=== PATIENT | male | born 1980 | race Caucasian/White ===

== ENCOUNTER 2018-07-24 01:42 | Inpatient (IN) ==
[2018-07-24] MEDS ORDERED: NS 1,000 ML IV ONE ×4 (01:51→05:27)
[2018-07-24 02:17] LABS: URINE SOURCE CATH
[2018-07-24 02:23] LABS: BILIRUBIN URINE NEGATIVE (NEGATIVE); BLOOD URINE NEGATIVE (NEGATIVE); COLOR STRAW; GLUCOSE URINE NEGATIVE (NEGATIVE); KETONE URINE NEGATIVE (NEGATIVE); LEUKOCYTES URINE NEGATIVE (NEGATIVE); NITRITE URINE NEGATIVE (NEGATIVE); PROTEIN URINE NEGATIVE (NEGATIVE); TURBIDITY URINE CLEAR (CLEAR); UROBILINOGEN URINE NORMAL (NORMAL)
[2018-07-24 02:24] LABS: UR EPITHELIAL CELLS <10 /HPF (<10); URINE BACTERIA NEGATIVE /HPF; URINE RBC <10 /HPF (<10); URINE WBC <10 /HPF (<10)
[2018-07-24 02:29] LABS: BASO# 0.02 X1000 (0.0-0.2); BASO% 0.3 % (0.0-0.8); EOS# 0.13 X1000 (0.0-0.7); EOS% 2.1 % (0.0-10.0); HEMATOCRIT 46.2 % (42.0-52.0); HEMOGLOBIN 15.2 g/dL (14.0-18.0); LYMPH# 3.65 X1000 (1.2-3.4); LYMPH% 59.3 % (20.5-51.1); MCH 29.7 PG (27-31); MCHC 32.9 g/dL (33-37); MCV 90.2 FL (81-99); MONO# 0.43 X1000 (0.11-0.59); MPV 11.9 FL (7.4-10.4); NEUT# 1.92 X1000 (1.4-6.5); NEUT% 31.3 % (42.2-75.2); PLT 201 X1000 (130-400); RBC 5.12 XMIL (4.7-6.1); WBC 6.15 X1000 (4.8-10.8)
[2018-07-24 02:36] LABS: UR AMPHETAMINES QUAL NONE DETECTED (NONE DETECT); UR BARBITUATES QUAL NONE DETECTED (NONE DETECT); UR BENZODIAZEPIN QUAL NONE DETECTED (NONE DETECT); UR CANNABINOIDS QUAL NONE DETECTED (NONE DETECT); UR COCAINE QUAL NONE DETECTED (NONE DETECT); UR METHADONE QUAL NONE DETECTED (NONE DETECT); UR OPIATES QUAL NONE DETECTED (NONE DETECT); UR OXYCODONE QUAL NONE DETECTED (NONE DETECT); UR PCP QUAL NONE DETECTED (NONE DETECT)
[2018-07-24 02:44] LABS: ACETAMINOPHEN < 1.2 ug/mL (10-30); AGAP 12; ALB/GLOB RATIO 1.6; ALBUMIN 4.5 g/dL (3.5-5.0); ALKALINE PHOSPHATASE 66 U/L (32-122); BUN 6 mg/dL (8-22); CALCIUM 9.1 mg/dL (8.8-10.2); CHLORIDE 98 mmol/L (98-107); COSMO 270; CREATININE 0.9 mg/dL (0.7-1.2); ESTIMATED GFR > 60; GLUCOSE 137 mg/dL (70-104); GOT 45 U/L (10-34); GPT 61 U/L (10-44); POTASSIUM 3.9 mmol/L (3.5-5.1); SALICYLATES < 3.00 mg/dL (3-10); SODIUM 135 mmol/L (136-145); TCO2 25 mmol/L (25-35); TOTAL BILIRUBIN 0.22 mg/dL (0.20-1.00); TOTAL PROTEIN 7.3 g/dL (6.3-8.3)
--- NOTE | 2018-07-24 03:41 | PROVIDER DOCUMENTATION ---
HPI-General Adult - General Chief Complaint: Suicide Attempt Stated Complaint: overdose Time Seen by Provider: 07/24/18 01:48 Source: family, EMS Allergies/Adverse Reactions: Patient Allergies Allergy/AdvReac Type Severity Reaction Status Date / Time No Known Allergies Allergy Verified 07/24/18 04:32 Home Medications: Home Medication List Medication Instructions Recorded Confirmed Last Taken Type Adalimumab [Humira] 40 mg SQ DIRECTED 11/19/17 07/24/18 07/23/18 History Clonazepam 0.5 mg PO DAILY PRN 07/24/18 07/24/18 07/23/18 History Clonazepam 0.5 mg PO QHS 07/24/18 07/24/18 07/23/18 History Mirtazapine 15 mg PO QHS 07/24/18 07/24/18 07/23/18 History Paroxetine HCl 20 mg PO QHS 07/24/18 07/24/18 07/23/18 History - History of Present Illness -Gen Adult Nature of Presenting Problems: Pt presents s/p suicide attempt, pt was drinking alcohol tonight, had 11 beers, family called EMS, pt found with 4 empty pill bottles, paxil 20mg qty 30, clonazepam 0.5mg qty13, clonazepam 0.5mg qty 20, and mirtazapine 15mg qty 30, unsure how many or if pt took pills, pt left a suicide note at home, pt is somnolent here, not answering any further questions at this time. Location of Pain/Injury: reports: none Pain Radiation: reports: no radiation Quality of Pain: reports: none Severity: reports: moderate Onset/Duration: reports: 1-3 hours ago Timing: reports: still present Context/Activities at Onset: reports: none Modifying Factors: improves with: nothing Associated Symptoms: reports: denies symptoms Similar Symptoms Previously?: No Recently seen or treated by another doctor?: No Review of Systems - Adult - REVIEW OF SYSTEMS - ADULT ROS:: unobtainable per condition Constitutional: reports: no symptoms reported Past History - Adult - PAST MEDICAL HISTORY-ADULT Review of Records: reports: Old Records Reviewed, Nursing Assessment Review, Medications Reviewed, Social history reviewed & non-contributory. Physical Exam-General - PHYSICAL EXAM-ADULT Initial Vital Signs Reviewed: Yes - CONSTITUTIONAL General Appearance: lethargic - EYES Eyes: PERRL/EOMI - HEAD, EARS, NOSE, MOUTH & THROAT HENMT: normocephalic/atraumatic - NECK Neck: full range of motion, supple, normal inspection - RESPIRATORY Respiratory: normal breath sounds - CARDIOVASCULAR Cardiovascular: regular rate, rhythm - GASTROINTESTINAL (ABDOMEN) Abdominal Exam: normal bowel sounds, soft, no organomegaly - LYMPHATIC Lymphatic: no adenopathy - MUSCULOSKELETAL Back Exam: normal inspection Extremity: normal inspection - SKIN Integumentary: normal color - NEUROLOGIC Neurologic: other (unable to assess neuro due to somnolence) - PSYCHIATRIC Psych/Mental Status: depressed affect Progress - PLAN OF CARE/RESULTS Progress/Plan/Lab Results: Vital Signs - 8 hr 07/24/18 02:04 07/24/18 02:43 07/24/18 02:44 Temperature 94.3 F L Pulse Rate 89 95 H 95 H Respiratory Rate 16 13 13 Blood Pressure 125/78 127/82 O2 Sat by Pulse Oximetry 90 L 95 96 07/24/18 02:47 07/24/18 02:50 07/24/18 03:00 Temperature Pulse Rate 95 H 95 H 96 H Respiratory Rate 14 14 15 Blood Pressure 117/78 O2 Sat by Pulse Oximetry 96 96 96 07/24/18 03:02 07/24/18 03:10 07/24/18 03:18 Temperature Pulse Rate 94 H 96 H 97 H Respiratory Rate 14 13 14 Blood Pressure 96/75 98/78 O2 Sat by Pulse Oximetry 94 L 94 L 94 L 07/24/18 03:20 Temperature Pulse Rate 95 H Respiratory Rate 13 Blood Pressure O2 Sat by Pulse Oximetry 94 L Laboratory Results - last 24 hr 07/24/18 07/24/18 07/24/18 02:01 02:01 02:01 WBC 6.15 RBC 5.12 Hgb 15.2 Hct 46.2 MCV 90.2 MCH 29.7 MCHC 32.9 L RDW Std Deviation 12.0 Plt Count 201 MPV 11.9 H Neut % (Auto) 31.3 L Lymph % (Auto) 59.3 H [place] % (Auto) 7.0 Eos % (Auto) 2.1 Baso % (Auto) 0.3 Neut # (Auto) 1.92 Lymph # (Auto) 3.65 H [place] # (Auto) 0.43 Eos # (Auto) 0.13 Baso # (Auto) 0.02 Sodium 135 L Potassium 3.9 Chloride 98 Carbon Dioxide 25 Anion Gap 12 BUN 6 L Creatinine 0.9 Estimated GFR/1.73 m2 > 60 BUN/Creatinine Ratio 7 Glucose 137 H Calculated Osmolality 270 Calcium 9.1 Total Bilirubin 0.22 AST 45 H ALT 61 H Alkaline Phosphatase 66 Total Protein 7.3 Albumin 4.5 Globulin 2.8 Albumin/Globulin Ratio 1.6 Urine Source CATH Urine Color STRAW Urine Turbidity CLEAR Urine pH 5.0 Ur Specific Banks 1.000 Urine Protein NEGATIVE Ur Glucose (Stick) NEGATIVE Ur Ketones (Stick) NEGATIVE Urine Blood NEGATIVE Urine Nitrite NEGATIVE Urine Bilirubin NEGATIVE Urobilinogen Dipstick NORMAL Urine Leukocytes NEGATIVE Urine WBC (Auto) <10 Urine RBC (Auto) <10 U Epithel Cells (Auto) <10 Urine Bacteria (Auto) NEGATIVE Salicylates < 3.00 L Urine Opiates Screen Ur Oxycodone Screen Ur Methadone, Qual Acetaminophen < 1.2 L Ur Barbiturates Screen Ur Phencyclidine Scrn Ur Amphetamines Screen U Benzodiazepines Scrn Urine Cocaine Screen U Cannabinoids Screen Plasma/Serum Ethyl Alc 07/24/18 07/24/18 02:01 02:01 WBC RBC Hgb Hct MCV MCH MCHC RDW Std Deviation Plt Count MPV Neut % (Auto) Lymph % (Auto) [place] % (Auto) Eos % (Auto) Baso % (Auto) Neut # (Auto) Lymph # (Auto) [place] # (Auto) Eos # (Auto) Baso # (Auto) Sodium Potassium Chloride Carbon Dioxide Anion Gap BUN Creatinine Estimated GFR/1.73 m2 BUN/Creatinine Ratio Glucose Calculated Osmolality Calcium Total Bilirubin AST ALT Alkaline Phosphatase Total Protein Albumin Globulin Albumin/Globulin Ratio Urine Source Urine Color Urine Turbidity Urine pH Ur Specific Banks Urine Protein Ur Glucose (Stick) Ur Ketones (Stick) Urine Blood Urine Nitrite Urine Bilirubin Urobilinogen Dipstick Urine Leukocytes Urine WBC (Auto) Urine RBC (Auto) U Epithel Cells (Auto) Urine Bacteria (Auto) Salicylates Urine Opiates Screen NONE DETECTED Ur Oxycodone Screen NONE DETECTED Ur Methadone, Qual NONE DETECTED Acetaminophen Ur Barbiturates Screen NONE DETECTED Ur Phencyclidine Scrn NONE DETECTED Ur Amphetamines Screen NONE DETECTED U Benzodiazepines Scrn NONE DETECTED Urine Cocaine Screen NONE DETECTED U Cannabinoids Screen NONE DETECTED Plasma/Serum Ethyl Alc 176 H Orders Category Date Time Status Page Cath Insertion ORDERED Care 07/24/18 01:47 Active Nursing- Obtain EKG once Care 07/24/18 01:44 Active ACETAMINOPHEN [TDM] Stat Lab 07/24/18 02:01 Completed ALCOHOL BLOOD Stat Lab 07/24/18 02:01 Completed CBC WITH ELECTRONIC DIFF [HEME] Stat Lab 07/24/18 02:01 Completed COMPREHENSIVE METABOLIC PANEL [CHEM] Stat Lab 07/24/18 02:01 Completed SALICYLATES [TDM] Stat Lab 07/24/18 02:01 Completed UA NIMS W/REFLEX CULT [URINALYSIS] Stat Lab 07/24/18 02:01 Completed URINE DRUG SCREEN Stat Lab 07/24/18 02:01 Completed 0.9% Sodium Chloride Inj [Ns] 1,000 ml Med 07/24/18 01:51 Discontinued IV 999 mls/hr EKG [EKG] Stat Ther 07/24/18 01:44 Ordered Result Diagrams: 07/24/18 02:01 07/24/18 02:01 - REASSESSMENT Reassessment #1 Time Reassessed: 08:58 Status: unchanged (Assumed care of patient at shift change from Dr. Ray. Patient has had little improvement in mental status and therefore cannot complete the mental health assessment at this time. Will admit to ICU for further monitoring with plan for [facility] chapely eval when mental status improves.) - CHANGE OF SHIFT REPORT (ED Provider) 1 Report Given and Care Transferred to:: Dr. Ocasio Time of Transfer: 07:00 Departure - Departure Date of Disposition Decision: 07/24/18 Time of Disposition Decision: 09:04 DIAGNOSIS: Suicidal overdose Qualifiers: Encounter type: initial encounter Qualified Code(s): T50.902A - Poisoning by unspecified drugs, medicaments and biological substances, intentional self-harm , initial encounter Disposition: ADMITTED INPATIENT 09 Certified Medical Emergency: Emergent Condition: Good Referrals and Follow-Ups: Yumiko Perez [Primary Care Provider] - - Critical Care Note This patient required my direct & personal management of CC.: Yes Attestation - Physician/ LUIS Attestation Patient care was provided by Advanced Practice Provider:: No The physician spent face to face time with patient:: Yes Advanced Practice Provider documentation review:: Supervising physician onsite and consulted in the evaluation and care of this patient. The physician did have a face to face encounter with the patient.
[2018-07-24] MEDS ORDERED: NS 1,000 ML ONE (03:45)
[2018-07-24] MEDS ORDERED: ZOFRAN IV ONE (09:29)
[2018-07-24] MEDS ORDERED: OFIRMEV 1000 MG/ISOTONIC SOLN 1,000 MG/100 ML BOTTLE IV ONE (09:39)
[2018-07-24] MEDS ORDERED: ZOFRAN IV PRN (09:56)
[2018-07-24] MEDS: NS 1,000 ML IV SCH ×3 (10:13→23:30)
[2018-07-24 10:24] LABS: AGAP 11; ALBUMIN 4.1 g/dL (3.5-5.0); ALKALINE PHOSPHATASE 59 U/L (32-122); BUN 5 mg/dL (8-22); CALCIUM 8.4 mg/dL (8.8-10.2); CHLORIDE 101 mmol/L (98-107); COSMO 273; CREATININE 0.8 mg/dL (0.7-1.2); ESTIMATED GFR > 60; GLUCOSE 101 mg/dL (70-104); GOT 33 U/L (10-34); GPT 49 U/L (10-44); MAGNESIUM 1.5 mg/dL (1.5-2.7); POTASSIUM 4.6 mmol/L (3.5-5.1); SODIUM 138 mmol/L (136-145); TCO2 26 mmol/L (25-35); TOTAL BILIRUBIN 0.18 mg/dL (0.20-1.00); TOTAL PROTEIN 6.1 g/dL (6.3-8.3)
[2018-07-24 10:43] LABS: ALLEN TEST YES; BE 2.2 mmoll (-3.0-3.0); BLOOD TYPE ARTERIAL; HCO3-(ACT) 26.6 mmoll (20.0-26.0); O2(CT) 19.6 mL/dL (15.0-23.0); O2HB 97.4 % (95.0-99.0); PO2(98.6) 87 mmHg (60-100); SAMPLE BLOOD; THB 14.3 g/dL (11.5-17.4); pH(98.6) 7.33 (7.35-7.45)
[2018-07-24 10:44] LABS: MODALITY NRB; PCO2(98.6) 56 mmHg (35-45)
[2018-07-24] MEDS ORDERED: MAGNESIUM SULFATE 2 GM/S.W.I. 2 GM/50 ML IVPB IV ONE (11:57)
--- NOTE | 2018-07-24 12:22 | Diag Imaging Result Doc PS360 ---
EXAM: CHEST-PORTABLE INDICATION: fever TECHNIQUE: One view COMPARISON: None. FINDINGS: Inspiration is suboptimal. The lungs are grossly clear. There is no discrete pleural fluid collection or pneumothorax. The cardiomediastinal silhouette and central vasculature are grossly unremarkable. IMPRESSION: No evidence of acute pathology by plain radiograph. Electronically signed by Josh Chen 07/24/2018 12:19 PM
--- NOTE | 2018-07-24 13:17 | ED EKG INTERP ---
This chart was entered by Isela Menendez Scribe, acting as scribe for Alix Ocasio MD. EKG Interpretation - EKG Time of EKG reading by physician:: 10:15 EKG Read and Signed by:: Alix Ocasio EKG Interpretation (*Must complete 3 of following elements*): Normal Rate: 82 Rhythm: NSR [place]: normal QRS: normal ST Wave: normal Attestation - Physician/ LUIS Attestation Patient care was provided by Advanced Practice Provider:: No The physician spent face to face time with patient:: Yes Advanced Practice Provider documentation review:: Supervising physician onsite and consulted in the evaluation and care of this patient. The physician did have a face to face encounter with the patient. This chart was documented by the indicated scribe, (Isela Menendez, Alysiaibe) and accurately reflects the services I performed and decisions made by ut, Alix Ocasio MD, as attested by the provider's signature.
--- NOTE | 2018-07-24 13:46 | HISTORY AND PHYSICAL ---
PRIMARY CARE PHYSICIAN: Dr. Yumiko Perez NEW PSYCHIATRIC PHYSICIAN: Dr. Ramsey through [facility] CHIEF COMPLAINT: Suicidal attempt. HISTORY OF PRESENT ILLNESS: Mr. Ky Chairez is a 38-year-old male with a medical history of psoriatic arthritis, hemochromatosis and recently has been getting treatment for anxiety and depression. Apparently his psoriatic arthritis has been so severe, he has been out of work for 2 years which has caused his mental state to start deteriorating into more of an anxiety and depression. He does have a history of alcohol abuse and has been drinking beer daily for 16 plus years. However, for the last 3 weeks, he was initiated in new medications, Paxil, mirtazapine and clonazepam by his physician through psychiatric outreach and was told not to drink. He has not had any alcohol over the last 3 weeks, and the at the bedside and the mother at the bedside both state that this is the best they have ever seen him mentally be. And for whatever reason last night, he decided he would start drinking alcohol again. Apparently he had up to 15 beers and wrote a suicide note, kissed his sometime close to midnight, told her he loved her, went to the kitchen, grabbed a cup of water, came back to the bedroom, and his heard him start rattling the bottles around his medications. She asked him what he was doing, and by the time she got up, he had already swallowed a whole bottle of clonazepam plus some from another bottle, a whole bottle of mirtazapine, a whole bottle of Paxil, about a half a bottle of melatonin. These doses are unsure of the actual doses, but the clonazepam and the mirtazapine were most recently filled on 07/18/2018. The dose on the clonazepam was 0.5 mg, so at least 6.5 mg or more of that. Then the dose of the mirtazapine was 15, and it had to be at least 450 mg or a little less. Paxil is unknown. She tried to get the bottle of melatonin from him while she was calling 911. He fell at least 3 times but never hit his head. Tried to lock himself in the bedroom when the police got there and was taken by ambulance here. He is very, very lethargic. Sternal rub or high amount of physical stimuli, he will open his eyes and wiggle his feet to command but otherwise significantly lethargic or obtunded. Pupils are equal and reactive. He moves all extremities equally and spontaneously but also to painful stimuli. Poison Control was contacted, and recommendations were followed. Those orders have been put in. The time of this occurrence the states was around midnight to 12:30 last night. So he will need to be admitted given the timeframe, watch for serotonin syndrome and prolonged QTC. Once he is cleared medically, we will need to get a transfer to [facility]. Apparently in the past he has tried to get in with [facility] but was unsuccessful. Over the last 2 years since he has been out of work, he has had suicidal thoughts on and off according to the , never an actual attempt. In the ICU. PAST MEDICAL HISTORY: 1. Psoriatic arthritis. 2. Hemochromatosis diagnosed 11/2017. 3. Anxiety and depression. 4. Hepatic steatosis. PAST SURGICAL HISTORY: None. SOCIAL HISTORY: No work for 2 years. Trying to get disability. to his of 16 years. Two children, ages 10 and 13. He uses smokeless tobacco and dips one can a day. He drinks beer daily, anywhere from 4 or more beers per day and has so since 16 plus years, although no alcohol for the last 3 weeks. He drank 15 beers last night. FAMILY HISTORY: Mother's side of the family wit basal cell carcinomas, [place] and hypertension. One sister had thyroid cancer. Another one also has mental health issues with depression and pills. Father with diabetes. ALLERGIES: No known drug allergies. HOME MEDICATIONS: 1. Clonazepam 0.5 mg p.o. nightly. 2. Mirtazapine 15 mg p.o. nightly. 3. Paroxetine 20 mg p.o. nightly. 4. Clonazepam 0.5 mg p.o. daily p.r.n. 5. Humira 40 mg subcutaneously every 2 weeks. REVIEW OF SYSTEMS: Unable to obtain. PHYSICAL EXAMINATION: VITAL SIGNS: Temperature is 99.9, heart rate 85, respiratory rate 29, blood pressure 114/70, O2 saturation is 99% on 100% nonrebreather. He is 5 feet 11 inches tall, 197 pounds on bed scale. GENERAL: Mr. Ky Chairez is a 38-year-old male. He is essentially obtunded in bed, very lethargic. Will respond to painful stimuli. HEENT: Atraumatic and normocephalic. Pupils are equal and reactive. He will go from a pinpoint all the way to about a 4 on his pupils. Mucous membranes are dry. NECK: Trachea midline. CARDIOVASCULAR: S1, S2. Regular rate and rhythm. No rubs or gallops. No lower extremity edema. Plus 2 dorsalis and radial pulses. Negative for JVD or carotid bruits. PULMONARY: Clear to auscultation with bilateral breath sounds. No accessory muscle use or work of breathing noted. GASTROINTESTINAL: Soft, nontender and nondistended. Positive bowel sounds x4. EXTREMITIES: He moves all extremities equally but not to command. He will spontaneously or to pain. NEUROLOGICAL: Verbally nonresponsive. Moans and groans with painful stimuli, but he did actually wiggle his feet to command after sternal rub but immediately goes back to sleep. SKIN: Warm, dry and intact. DIAGNOSTIC DATA: White blood cells 6000, hemoglobin 15, hematocrit 46, platelet count 201. ABGs on 100% nonrebreather showed pH of 7.33, pCO2 of 56, pO2 of 87, bicarb 26, base excess 2.2, lactate 1.9, saturation 99%. BMP shows sodium 138, potassium 4.6, BUN is 5, creatinine 0.8, glucose 101, calcium 8.4, magnesium 1.5. Bilirubin is 0.18, AST is 33, ALT is 49. CK is 95. Troponin less than 0.01. Albumin 4.1. Urinalysis negative. Urine drug screen with salicylates less than 3. Acetaminophen less than 1.2. Alcohol level 176. IMAGING: Chest x-ray performed, not read yet. EKG not uploaded into the computer. ASSESSMENT AND PLAN: 1. Suicide attempt with prescription overdose. These prescriptions include clonazepam 6.5 mg or more, mirtazapine around 450 mg , paroxetine he had filled on 06/30/2018 with a quantity of 30 and is unknown how many were in that bottle, and then about a half bottle of 2 mg melatonin and on top of that had 15 beers. Wrote a note to his family. All of this happened around midnight or 12:30 last night. He had 3 falls at home without hitting his head, according to the . The Poison Control Team was called, and recommendations are being followed. Given the timeframe of ingestion, no NG tube, just symptomatic treatment. Watch for serotonin syndrome. Watch for prolonged QTC. We will do serial EKGs q.4 hours along with electrolyte q.4 hours as well. We will repeat one more acetaminophen level today. He will most definitely need a [facility] consult once he is medically cleared. The also wants him to be evaluated for [facility] as well. 2. Alcohol abuse with alcohol intoxication, present on admit. Alcohol level was 176. Apparently he quit drinking for about 3 weeks, but he has had an alcoholic for 16 plus years, drinks beer daily, specifically [place]. The states that he was actually mentally improving, going to latter-day, just much more pleasant to be around, was able to have better conversations with him. And he has 2 young children, so hopefully we can get him help. 3. Anxiety and depression. He was most recently started on clonazepam, Paxil and mirtazapine and is followed by Dr. Ramsey located through the psychiatric outreach. 4. Respiratory failure secondary to being overly sedated with some CO2 retention. It is not severe. There is mild respiratory acidosis, pH of 7.33, pCO2 of 58 and only an 87% O2 saturation with a nonrebreather. We will put him on BiPAP. We will consult Pulmonary just in case he possibly may need intubation if he cannot stay awake, but currently he is maintaining his airway. There is no compromise at this time. We will add some nebulizers there. 5. Psoriatic arthritis. He takes every 2 weeks Humira 40 mg subcutaneously. 6. Hemochromatosis. He has only gone back in 11/2017 for treatment. No treatment since. 7. Hepatic steatosis. He has had a liver biopsy. I cannot pull up those results at this time. 8. DVT prophylaxis. 9. Tobacco abuse, but it is smokeless. Dictated by CHRISTIAN Fung for Kayode Chen MD cc: CHRISTIAN Fung MD David Anakwenze, MD Faye Wilson, MD
--- NOTE | 2018-07-24 15:30 | HISTORY AND PHYSICAL ---
This is a 38-year-old male who has presented to hospital because of attempted suicide. Patient had overdosed on medications include Klonopin, mirtazapine and also paroxetine. Also had alcohol in his system at time of presentation. Poison control has been contacted and will also get patient transferred over to [facility] when clinically stable. He is noted to have evidence of CO2 retention and as such is requiring BiPAP. He will need to be placed on DT prophylaxis in light of his history of alcoholism and along with thiamine, folic acid and also multivitamin. We check his mag and phos levels and replace those if needed. Patient will be managed in intensive care unit for now until he is clinically stable. cc: Kayode Chen MD
[2018-07-24] MEDS: FOLIC ACID 1 MG in NS 50 ML IV SCH (15:43)
[2018-07-24 15:46] LABS: ALLEN TEST YES; BLOOD TYPE ARTERIAL; HCO3-(ACT) 24.1 mmoll (20.0-26.0); METHB 0.8 % (0.0-1.5); O2(CT) 20.5 mL/dL (15.0-23.0); O2HB 97.3 % (95.0-99.0); PO2(98.6) 126 mmHg (60-100); SAMPLE BLOOD; THB 14.9 g/dL (11.5-17.4); pH(98.6) 7.31 (7.35-7.45)
[2018-07-24 15:48] LABS: MODALITY BI PAP; PCO2(98.6) 52 mmHg (35-45)
[2018-07-24] MEDS: DUONEB (A & A) INH SCH ×3 (15:57→23:33)
[2018-07-24 16:16] LABS: ACETAMINOPHEN 2.3 ug/mL (10-30); AGAP 8; ALB/GLOB RATIO 1.5; ALBUMIN 3.7 g/dL (3.5-5.0); ALKALINE PHOSPHATASE 63 U/L (32-122); BUN 4 mg/dL (8-22); CALCIUM 9.8 mg/dL (8.8-10.2); CHLORIDE 100 mmol/L (98-107); COSMO 265; CREATININE 0.9 mg/dL (0.7-1.2); ESTIMATED GFR > 60; GLUCOSE 93 mg/dL (70-104); GOT 26 U/L (10-34); GPT 46 U/L (10-44); MAGNESIUM 2.1 mg/dL (1.5-2.7); POTASSIUM 4.4 mmol/L (3.5-5.1); SODIUM 134 mmol/L (136-145); TCO2 26 mmol/L (25-35); TOTAL BILIRUBIN 0.31 mg/dL (0.20-1.00); TOTAL PROTEIN 6.1 g/dL (6.3-8.3)
[2018-07-24] MEDS: THIAMINE 100 MG in NS 50 ML IV SCH (16:48)
--- NOTE | 2018-07-24 20:10 | CONSULTATION ---
DATE OF CONSULTATION: 07/24/2018 CHIEF COMPLAINT: Suicidal attempt. HISTORY OF PRESENT ILLNESS: This is a 38-year-old male who presented to the hospital because of attempted suicide. Patient overdosed on Klonopin, mirtazapine and paroxetine; also had alcohol in his system. Chest x-ray is clear, CO2 retention noted, patient stable and resting well during assessment. PAST MEDICAL HISTORY: 1. Psoriatic arthritis. 2. Hemochromatosis diagnosed in November 2017. 3. Anxiety and depression. 4. Hepatic steatosis. PAST SURGICAL HISTORY: None. SOCIAL HISTORY: Unemployed for 2 years trying to get disability, , has 2 children, uses smokeless tobacco, he drinks beer daily for the past 16+ years. FAMILY HISTORY: Mother side the family with basal cell carcinoma, [place] and hypertension, 1 sister with thyroid cancer, another sister has mental health issues with depression. Father with diabetes. ALLERGIES: No known allergies. HOME MEDICATIONS: Please see home medication reconciliation list. REVIEW OF SYSTEMS: Unable to obtain due to patient condition. PHYSICAL EXAM: Vital Signs: 99.9, heart rate 85, respiratory rate 29, blood pressure 114/70, O2 saturation 99%. General: This is a 38-year-old male very lethargic resting well in no acute distress at present time. HEENT: Head is atraumatic, normocephalic. Pupils equal, round, and reactive to light and accommodation. Mucous membranes are dry. Neck : Midline supple. Cardiovascular: S1, S2 auscultated, regular rate and rhythm. Pulmonary: Clear to auscultation, nonlabored. GI: Soft, nontender, nondistended, positive bowel sounds in all 4 quadrants. Skin: Warm dry, and intact. Neuro: Lethargic moans and grunts to painful stimuli. LABORATORY DATA: red blood cells 5.12, pH 7.31, pCO2 52, PO2 126, oxyhemoglobin 97.3, HCO3 24.1, sodium 134, BUN 4, creatinine 0.9, potassium 4.4 , chloride 100, carbon dioxide 26, AST 26, ALT 46, total protein 6.1. DIAGNOSTIC DATA: Chest x-ray clear. ASSESSMENT AND PLAN: 1. Suicidal attempt with clonazepam, mirtazapine and paroxetine, will be transferred to [facility] once stable. 2. Respiratory failure secondary to being overly sedated, will continue BiPAP and monitor with ABGs. 3. Alcohol abuse. Hopefully can get him help through [facility]. 4. Psoriatic arthritis takes Humira 40mg sq every 2 weeks 5. Continue DVT prophylaxis. 6. Tobacco abuse. Thank you for the courtesy of the consult. Dictated by CHRISTIAN Ng for Mindi Nance MD cc: CHRISTIAN Ng MD [facility]
[2018-07-24 20:39] LABS: AGAP 13; ALB/GLOB RATIO 1.4; ALBUMIN 3.9 g/dL (3.5-5.0); ALKALINE PHOSPHATASE 68 U/L (32-122); BUN 5 mg/dL (8-22); CHLORIDE 108 mmol/L (98-107); COSMO 288; CREATININE 0.9 mg/dL (0.7-1.2); ESTIMATED GFR > 60; GLUCOSE 97 mg/dL (70-104); GOT 29 U/L (10-34); GPT 45 U/L (10-44); POTASSIUM 4.6 mmol/L (3.5-5.1); SODIUM 146 mmol/L (136-145); TCO2 25 mmol/L (25-35); TOTAL BILIRUBIN 0.39 mg/dL (0.20-1.00); TOTAL PROTEIN 6.7 g/dL (6.3-8.3)
[2018-07-25 01:11] LABS: AGAP 9; ALB/GLOB RATIO 1.5; ALBUMIN 3.7 g/dL (3.5-5.0); ALKALINE PHOSPHATASE 65 U/L (32-122); BUN 6 mg/dL (8-22); CALCIUM 9.5 mg/dL (8.8-10.2); CHLORIDE 108 mmol/L (98-107); COSMO 286; ESTIMATED GFR > 60; GLUCOSE 99 mg/dL (70-104); GOT 25 U/L (10-34); GPT 39 U/L (10-44); MAGNESIUM 1.8 mg/dL (1.5-2.7); POTASSIUM 4.3 mmol/L (3.5-5.1); SODIUM 145 mmol/L (136-145); TCO2 28 mmol/L (25-35); TOTAL BILIRUBIN 0.33 mg/dL (0.20-1.00); TOTAL PROTEIN 6.2 g/dL (6.3-8.3)
[2018-07-25] MEDS: DUONEB (A & A) INH SCH ×6 (03:44→23:04)
[2018-07-25] MEDS: NS 1,000 ML IV SCH ×5 (05:30→22:03)
[2018-07-25 06:15] LABS: PTT 28.9 Seconds (22.3-41.8)
[2018-07-25 06:20] LABS: BASO# 0.01 X1000 (0.0-0.2); BASO% 0.2 % (0.0-0.8); EOS# 0.05 X1000 (0.0-0.7); EOS% 0.9 % (0.0-10.0); HEMATOCRIT 43.6 % (42.0-52.0); HEMOGLOBIN 13.9 g/dL (14.0-18.0); LYMPH# 1.77 X1000 (1.2-3.4); LYMPH% 32.5 % (20.5-51.1); MCH 29.4 PG (27-31); MCHC 31.9 g/dL (33-37); MCV 92.2 FL (81-99); MONO# 0.58 X1000 (0.11-0.59); MONO% 10.6 % (1.7-9.3); MPV 11.8 FL (7.4-10.4); NEUT# 3.04 X1000 (1.4-6.5); NEUT% 55.8 % (42.2-75.2); PLT 139 X1000 (130-400); RBC 4.73 XMIL (4.7-6.1); RDW 11.7 % (11.5-14.5); WBC 5.45 X1000 (4.8-10.8)
[2018-07-25 07:03] LABS: AGAP 12; ALB/GLOB RATIO 1.7; ALBUMIN 3.5 g/dL (3.5-5.0); ALKALINE PHOSPHATASE 64 U/L (32-122); BUN 6 mg/dL (8-22); CALCIUM 8.8 mg/dL (8.8-10.2); CHLORIDE 106 mmol/L (98-107); COSMO 283; ESTIMATED GFR > 60; GLUCOSE 100 mg/dL (70-104); GOT 24 U/L (10-34); GPT 38 U/L (10-44); MAGNESIUM 1.7 mg/dL (1.5-2.7); POTASSIUM 4.4 mmol/L (3.5-5.1); SODIUM 143 mmol/L (136-145); TCO2 25 mmol/L (25-35); TOTAL BILIRUBIN 0.37 mg/dL (0.20-1.00); TOTAL PROTEIN 5.6 g/dL (6.3-8.3)
--- NOTE | 2018-07-25 07:19 | EKG Report ---
Test Performed on : 07/25/2018 06:47:49 AM Test Reason : overdose Blood Pressure : / mmHG Vent. Rate : 065 BPM Atrial Rate : 065 BPM P-R Int : 160 ms QRS Dur : 082 ms QT Int : 414 ms P-R-T Axes : 016 -11 009 degrees QTc Int : 430 ms Normal sinus rhythm. Normal ECG When compared with ECG of 25-JUL-2018 05:44, (Unconfirmed) No significant change was found Unconfirmed Result
--- NOTE | 2018-07-25 07:20 | EKG Report ---
Test Performed on : 07/24/2018 1:15:45 PM Test Reason : qtc prolongation monitoring Blood Pressure : / mmHG Vent. Rate : 080 BPM Atrial Rate : 080 BPM P-R Int : 172 ms QRS Dur : 084 ms QT Int : 370 ms P-R-T Axes : 042 004 041 degrees QTc Int : 426 ms Normal sinus rhythm. Normal ECG When compared with ECG of 24-JUL-2018 10:03, (Unconfirmed) No significant change was found Unconfirmed Result
--- NOTE | 2018-07-25 07:20 | EKG Report ---
Test Performed on : 07/24/2018 5:14:24 PM Test Reason : qtc prolongation monitoring Blood Pressure : / mmHG Vent. Rate : 076 BPM Atrial Rate : 076 BPM P-R Int : 156 ms QRS Dur : 084 ms QT Int : 380 ms P-R-T Axes : 050 006 031 degrees QTc Int : 427 ms Normal sinus rhythm. with sinus arrhythmia. Normal ECG When compared with ECG of 24-JUL-2018 13:15, (Unconfirmed) No significant change was found Unconfirmed Result
--- NOTE | 2018-07-25 07:30 | EKG Report ---
Test Performed on : 07/25/2018 05:44:16 AM Test Reason : qtc prolongation monitoring Blood Pressure : / mmHG Vent. Rate : 058 BPM Atrial Rate : 058 BPM P-R Int : 168 ms QRS Dur : 082 ms QT Int : 416 ms P-R-T Axes : 017 -16 003 degrees QTc Int : 408 ms Sinus bradycardia. Otherwise normal ECG When compared with ECG of 25-JUL-2018 01:18, (Unconfirmed) No significant change was found Unconfirmed Result
--- NOTE | 2018-07-25 07:46 | EKG Report ---
Test Performed on : 07/24/2018 10:03:48 AM Test Reason : repeat evaluation Blood Pressure : / mmHG Vent. Rate : 082 BPM Atrial Rate : 082 BPM P-R Int : 158 ms QRS Dur : 080 ms QT Int : 364 ms P-R-T Axes : 041 012 048 degrees QTc Int : 425 ms Normal sinus rhythm. Normal ECG When compared with ECG of 24-JUL-2018 01:55, (Unconfirmed) QT has shortened Unconfirmed Result
[2018-07-25 09:28] LABS: AGAP 8; ALB/GLOB RATIO 1.7; ALBUMIN 4.2 g/dL (3.5-5.0); ALKALINE PHOSPHATASE 72 U/L (32-122); BUN 7 mg/dL (8-22); CALCIUM 9.1 mg/dL (8.8-10.2); CHLORIDE 105 mmol/L (98-107); COSMO 283; CREATININE 1.1 mg/dL (0.7-1.2); ESTIMATED GFR > 60; GLUCOSE 101 mg/dL (70-104); GOT 27 U/L (10-34); GPT 40 U/L (10-44); MAGNESIUM 1.8 mg/dL (1.5-2.7); POTASSIUM 4.4 mmol/L (3.5-5.1); SODIUM 143 mmol/L (136-145); TCO2 30 mmol/L (25-35); TOTAL BILIRUBIN 0.41 mg/dL (0.20-1.00); TOTAL PROTEIN 6.7 g/dL (6.3-8.3)
--- NOTE | 2018-07-25 11:23 | EKG Report ---
Test Performed on : 07/24/2018 01:55:44 AM Test Reason : drug overdose Blood Pressure : / mmHG Vent. Rate : 087 BPM Atrial Rate : 087 BPM P-R Int : 158 ms QRS Dur : 094 ms QT Int : 402 ms P-R-T Axes : 038 002 038 degrees QTc Int : 483 ms Normal sinus rhythm. Possible Left atrial enlargement Prolonged QT Abnormal ECG No previous ECGs available Unconfirmed Result
--- NOTE | 2018-07-25 11:25 | EKG Report ---
Test Performed on : 07/24/2018 9:08:59 PM Test Reason : qtc prolongation monitoring Blood Pressure : / mmHG Vent. Rate : 070 BPM Atrial Rate : 070 BPM P-R Int : 172 ms QRS Dur : 092 ms QT Int : 412 ms P-R-T Axes : 038 -13 016 degrees QTc Int : 444 ms Normal sinus rhythm. Normal ECG When compared with ECG of 24-JUL-2018 17:14, (Unconfirmed) No significant change was found Unconfirmed Result
--- NOTE | 2018-07-25 11:26 | EKG Report ---
Test Performed on : 07/25/2018 01:18:48 AM Test Reason : qtc prolongation monitoring Blood Pressure : / mmHG Vent. Rate : 067 BPM Atrial Rate : 067 BPM P-R Int : 168 ms QRS Dur : 082 ms QT Int : 404 ms P-R-T Axes : 017 -11 -01 degrees QTc Int : 426 ms Normal sinus rhythm. Normal ECG When compared with ECG of 24-JUL-2018 21:08, (Unconfirmed) No significant change was found Unconfirmed Result
[2018-07-25] MEDS ORDERED: ATIVAN PO ONE (12:17)
--- NOTE | 2018-07-25 12:46 | EKG Report ---
Test Performed on : 07/25/2018 12:24:55 PM Test Reason : qtc prolongation monitoring Blood Pressure : / mmHG Vent. Rate : 058 BPM Atrial Rate : 058 BPM P-R Int : 168 ms QRS Dur : 084 ms QT Int : 410 ms P-R-T Axes : 018 -08 005 degrees QTc Int : 402 ms Sinus bradycardia. Otherwise normal ECG When compared with ECG of 25-JUL-2018 06:47, (Unconfirmed) No significant change was found Unconfirmed Result
[2018-07-25 13:48] LABS: AGAP 10; ALB/GLOB RATIO 1.9; ALKALINE PHOSPHATASE 66 U/L (32-122); BUN 6 mg/dL (8-22); CALCIUM 8.7 mg/dL (8.8-10.2); CHLORIDE 102 mmol/L (98-107); COSMO 279; ESTIMATED GFR > 60; GLUCOSE 103 mg/dL (70-104); GOT 23 U/L (10-34); GPT 39 U/L (10-44); MAGNESIUM 1.7 mg/dL (1.5-2.7); POTASSIUM 3.8 mmol/L (3.5-5.1); SODIUM 141 mmol/L (136-145); TCO2 29 mmol/L (25-35); TOTAL BILIRUBIN 0.39 mg/dL (0.20-1.00); TOTAL PROTEIN 6.1 g/dL (6.3-8.3)
--- NOTE | 2018-07-25 15:57 | PROGRESS NOTE ---
DATE: 07/25/2018 SUBJECTIVE: The patient is awake and seated on the chair not in any obvious distress. The patient is much better today in compared to yesterday where he was poorly responsive. OBJECTIVE: Vital signs: Temperature 97.4 degrees, pulse 67, respirations 14, blood pressure is 137/96, and oxygen saturation 94%. HEENT: Patient is atraumatic, normocephalic. Cardiovascular: S1, S2. Respiratory: He has evidence of good air entry bilaterally. Abdomen: Soft, nontender. No masses felt. Extremities: No evidence of edema. Central nervous system: No obvious focal deficits noted. LABORATORY: WBC is 5.45, hematocrit is 33.6, with a hemoglobin of 13.9. Sodium 141, potassium 3.8, chloride is 102, bicarb 29, BUN is 6, and creatinine is 1.0. Calcium 8.7. EKG shows sinus bradycardia. ASSESSMENT AND PLAN: 1. Medication overdose/major depression/suicide attempt. The patient is much better today and better oriented, and anxious to go home. The patient will need psychiatric evaluation for possible transfer to a psych unit for stabilization. 2. Alcoholism. Maintain patient on delirium tremens prophylaxis. Continue thiamine folic acid, and maintain patient on multivitamin. Check magnesium and phosphorus levels, and replace those as needed. 3. Anxiety disorder with depression. Defer management to psychiatric team. 4. Psoriatic arthritis. The patient takes Humira 40 mg subcutaneous every 2 weeks. 5. History of hemochromatosis. Aware. 6. History of hepatic steatosis. 7. Anemia. Check serum iron, TIBC, ferritin, B12, as well as folic acid level. Also stool for occult blood. 8. Deep vein thrombosis prophylaxis. SCD. cc: Kayode Chen MD
[2018-07-25 16:34] LABS: ALLEN TEST YES; BE 2.6 mmoll (-3.0-3.0); BLOOD TYPE ARTERIAL; HCO3-(ACT) 26.9 mmoll (20.0-26.0); O2(CT) 20.5 mL/dL (15.0-23.0); O2HB 95.7 % (95.0-99.0); PCO2(98.6) 41 mmHg (35-45); PO2(98.6) 87 mmHg (60-100); SAMPLE BLOOD; THB 15.2 g/dL (11.5-17.4); pH(98.6) 7.43 (7.35-7.45)
[2018-07-25 16:35] LABS: MODALITY ROOM AIR
[2018-07-25] MEDS: ELDERTONIC PO SCH (16:45)
[2018-07-25 16:48] LABS: IRON SATURATION 29 %; TIBC 302 ug/dL; TOTAL IRON 88 ug/dL (53-167); UNBOUND IRON 214 ug/dL (112-346)
[2018-07-25] MEDS: FOLIC ACID 1 MG in NS 50 ML IV SCH (16:49)
[2018-07-25] MEDS: THIAMINE 100 MG in NS 50 ML IV SCH (16:49)
[2018-07-25 17:26] LABS: FERRITIN 119 ng/mL (30-400)
[2018-07-25] MEDS ORDERED: MELATONIN PO ONE (20:33)
[2018-07-25] MEDS ORDERED: ATIVAN IV PRN (20:38)
[2018-07-26] MEDS: DUONEB (A & A) INH SCH ×7 (01:19→23:13)
[2018-07-26 04:48] LABS: ALLEN TEST YES; BE 2.2 mmoll (-3.0-3.0); BLOOD TYPE ARTERIAL; HCO3-(ACT) 26.7 mmoll (20.0-26.0); PCO2(98.6) 46 mmHg (35-45); PO2(98.6) 124 mmHg (60-100); SAMPLE BLOOD; pH(98.6) 7.39 (7.35-7.45)
[2018-07-26 04:49] LABS: MODALITY CANNULA
[2018-07-26] MEDS: NS 1,000 ML IV SCH (06:45)
--- NOTE | 2018-07-26 07:58 | PROGRESS NOTE ---
DATE: 07/26/2018 SUBJECTIVE: The patient is completely alert. He is oriented x3. He is answering all my questions. He is able to move all 4 extremities. No focal neurological deficits. I had a conversation with the patient about what happened. As per the patient, he has a history of arthritis I do believe due to psoriasis, and he has been asking for disability which has been denied. After that he became depressed, and he took some medications and alcohol at the same time to try to hurt himself. While I was talking to the patient, he seems to really be depressed, and he was crying during the whole conversation. He is clinically stable to be discharged, but I do believe he needs to be hospitalized in a psychiatric unit. We will contact [facility] today for evaluation. OBJECTIVE: Vital Signs: Temperature 97.9 degrees, pulse 88, respiratory rate 15, blood pressure 143/78, oxygen saturation 97% on room air. HEENT: Head normocephalic. No trauma. PERRLA. Neck: Supple. No JVD. No masses. Central trachea. Chest: Clear to auscultation. No wheezing. No rales. Abdomen: Soft, nontender, nondistended. No hepatosplenomegaly. Extremities: No edema. No clubbing. No cyanosis. Neurological examination: This patient is alert and oriented x3. No focal deficits. He seems to be really depressed. LABORATORY DATA: Lab work from yesterday stable. From yesterday, WBC 5.4, hemoglobin 13.9, hematocrit 43.6, platelets 139. Sodium 141, potassium 3.8, chloride 102, bicarbonate 29. BUN 6, creatinine 1, glucose 103, calcium 8.7. Protein 6.1, albumin 4, vitamin B 12 440, folate 7.4. ASSESSMENT AND PLAN: 1. Suicide attempt, medication overdose/major depressive state. The patient seems to be more stable today, medically stable. He is alert and oriented x3.. He looks depressed. He cried during the whole conversation with me. As per the patient, he has arthritis and he lost two jobs already because of that. He applied for disability and was denied. He felt depressed and he tried to hurt himself before coming to the hospital with pills and alcohol. 2. Alcoholism. Continue with the same management. The folic acid is low. Continue with thiamine and multivitamin. No signs of withdrawal or any kind of symptoms. I do not know how much he drinks, but as per the patient is not too much. No family members at the bedside at this moment. 3. Anxiety disorder with depression. He feels depressed at this moment and, like I mentioned before, he cried during the interview with me. 4. Psoriatic arthritis. It looks like the patient takes Humira 40 mg subcutaneously every 2 weeks. 5. History of hemochromatosis, aware. 6. History of hepatic steatosis. 7. Anemia. Hemoglobin looks fine. He does have folic acid deficiency. Blood cultures are negative. 8. Deep vein thrombosis prophylaxis with sequential compression devices. cc: Joseph Gutierrez MD
[2018-07-26] MEDS: ELDERTONIC PO SCH (09:50)
[2018-07-26] MEDS: FOLIC ACID 1 MG in NS 50 ML IV SCH (16:57)
[2018-07-26] MEDS: THIAMINE 100 MG in NS 50 ML IV SCH (16:58)
[2018-07-26] MEDS ORDERED: KLONOPIN PO SCH (21:00)
[2018-07-27] MEDS: DUONEB (A & A) INH SCH ×4 (03:18→14:52)
[2018-07-27 07:03] LABS: HEMATOCRIT 46.3 % (42.0-52.0); MCH 29.6 PG (27-31); MCHC 32.4 g/dL (33-37); MCV 91.3 FL (81-99); RBC 5.07 XMIL (4.7-6.1); RDW 11.9 % (11.5-14.5); WBC 5.21 X1000 (4.8-10.8)
[2018-07-27 07:33] LABS: AGAP 10; BUN 5 mg/dL (8-22); CALCIUM 9.3 mg/dL (8.8-10.2); CHLORIDE 104 mmol/L (98-107); COSMO 284; CREATININE 1.1 mg/dL (0.7-1.2); ESTIMATED GFR > 60; GLUCOSE 137 mg/dL (70-104); POTASSIUM 4.3 mmol/L (3.5-5.1); SODIUM 143 mmol/L (136-145); TCO2 29 mmol/L (25-35)
[2018-07-27] MEDS ORDERED: PATIENT'S OWN MED SUBQ ONE (09:00)
[2018-07-27] MEDS ORDERED: TYLENOL PO ONE (09:06)
--- NOTE | 2018-07-27 10:21 | PROGRESS NOTE ---
DATE: 07/27/2018 SUBJECTIVE: No acute events overnight. This patient is complaining of some mild pain mostly to palpation at the level of the left hip. He does have a history of psoriasis and arthritis. His is at the bedside. He had an evaluation by the psychiatry department, and the plan is to admit this patient in a psychiatric unit. OBJECTIVE: Vital Signs: Temperature 98.1 degrees, pulse 58, respiratory rate 16, blood pressure 135/83, and oxygen saturation 100% on room air. HEENT: Head normocephalic. No trauma. PERRLA. Neck: Supple. No JVD. No masses. Central trachea. Chest: Clear to auscultation. No wheezing. No rales. Abdomen: Soft, nontender, and nondistended. No hepatosplenomegaly. Extremities: No edema. No clubbing. No cyanosis. Neurological: The patient is alert and oriented x3. He seems to be better today. He does not look depressed today. at the bedside. LABORATORY: WBC 5.2, hemoglobin 15, hematocrit 46.3, and platelets 492,000. Sodium 143, potassium 4.3, chloride 104, bicarbonate 25, BUN 5, creatinine 1.1, glucose 137, and calcium 9.3. ASSESSMENT AND PLAN: 1. Suicide attempt. Medication overdose/major depressive state. The patient has been evaluated by Psychiatry Department yesterday. The plan is to transfer this patient to a psychiatry unit, pending placement. 2. Alcoholism. Continue with the same management. No signs of withdrawal. 3. Folic acid deficiency. Continue to replace. 4. Anxiety disorder with depression. He seems to be a little bit better today. The is at the bedside. All of the plan has been discussed. 5. Psoriatic arthritis. It looks like the patient takes Humira 40 mg subcutaneously every 2 weeks. Today, he is complaining of some left hip pain. He will get Tylenol for that. 6. History of hemochromatosis. Aware. 7. History of hepatic steatosis. Aware. 8. Anemia, hemoglobin has been stable. He does have folic acid deficiency. Blood culture negative. 9. Deep vein thrombosis prophylaxis with SCD's. cc: Joseph Gutierrez MD
[2018-07-27 11:57] VITALS: BP 131/86
[2018-07-27] MEDS: ELDERTONIC PO SCH (15:04)
--- NOTE | 2018-07-27 15:25 | DISCHARGE SUMMARY ---
ADMISSION DATE: 07/24/2018 DISCHARGE DATE: 07/27/2018 CONSULTATIONS: Dr. Nance of Pulmonology PERTINENT PROCEDURES: Initial chest x-ray with no evidence of acute disease. DISCHARGE DIAGNOSES: 1. Suicide attempt with medication overdose major depressive state. The patient has been evaluated by Psychiatry, and will be discharged to a psychiatry unit today at [facility]. Accepting physician is Dr. London Room #719. 2. Alcoholism. The patient has had no signs of withdrawal. 3. Folic acid deficiency. Continue with folic acid. 4. Anxiety disorder with depression. The patient has improved somewhat. Again, he will be discharged to a psychiatric unit at [facility]. 5. Psoriatic arthritis. He takes Humira 40 mg subcu every 2 weeks. 6. History of hemochromatosis. Aware 7. History of hepatic steatosis. Aware. 8. Anemia. Hemoglobin and hematocrit have been stable. HOSPITAL COURSE: Briefly, Mr. Chairez is a 38-year-old male with a past medical history of psoriatic arthritis, hemochromatosis, and recently was treated for anxiety and depression. His arthritis has been so severe. He had been out of work for nearly 2 years, and caused his mental state to start deteriorating into more of an anxiety and depression. He also has a history of alcohol abuse. He had been drinking beer daily for 16+ years. However, the last 3 weeks he was initiated on a new medication Paxil, Remeron and Klonopin by his physician through his psychiatric outreach and was told not to drink. He had not had any alcohol over the last 3 weeks, and his and mother both reported that it was the best that they had seen him mentally. For whatever reason, the night prior to admission he decided he would start drinking alcohol again. He had up to 15 beers and wrote a suicide note, kissed his sometime close to midnight, and told her that he loved her, went into the kitchen and grabbed a cup of water and came back to the bedroom. His heard him start rattling the bottles around his medication. By the time she got up, he had already swallowed a whole bottle of Klonopin plus some from another bottle, and then a whole bottle of Remeron at home. She called 911. He fell at least 3 times, tried to lock himself in the bedroom. When the police and ambulance got there, he was very very lethargic. He was only responsive to sternal rub or high amounts of physical stimulus. He would only open his eyes and wiggle his feet to command. He was admitted and watched for serotonin syndrome and prolonged QTc. When he became medically stable, he was evaluated by [facility]. They did feel he was appropriate for inpatient care. However, they did not have any beds. We sought other facilities in [place]. [facility] has assessed him, and feel that he is appropriate. He will be discharged there today. He had no signs of alcohol withdrawal throughout his admission. He is awake, alert, and oriented. VITAL SIGNS: At time of discharge, temperature is 97.6 degrees, heart rate 80, respirations 18, blood pressure 131/86, and O2 is 99% on room air. DISCHARGE DIET: Regular. DISCHARGE MEDICATIONS: 1. Klonopin 0.5 mg p.o. at bedtime. 2. Remeron 15 mg p.o. at bedtime. 3. Paxil 20 mg p.o. at bedtime. 4. Humira 40 mg subcutaneously as directed. 5. Klonopin 0.5 mg p.o. daily. FOLLOWUP: Mr. Chairez is being transferred to [facility] under the accepting physician, Dr. London. Dictated by CHRISTIAN Sanders for Joseph Gutierrez MD cc: MD Dr. Lita Coleman Dr.
== END 2018-07-27 19:10 | DRG 917 ==
LOC: SUPCPDRO → ED 01:42 → ICU 01:43 → SUATTDRO 01:43 → 3N 07-26 18:09
PROVIDERS: ATTEND Internal Medicine
CPT/HCPCS: 51702; 71010; 71045; 80048; 80053; 80101; 80196; 80301; 80307; 80320; 80324; 80329; 80345; 80346; 80353; 80358; 80361; 80365; 81001; 82003; 82055; 82550; 82607; 82728; 82746; 82805; 83540; 83550; 83605; 83735; 83992; 84100; 84484; 85025; 85027; 85610; 85730; 87040; 93005; 93010; 94640; 94660; 94761; 96361; 96365; 96375; 99285; A9270; G0431; G0434; G0479; G0480; G6038; G6039; G6040; J0131; J2060; J2405; J3411; J3475; J7030

== ENCOUNTER 2019-05-24 10:39 | Inpatient (IN) ==
[2019-05-24 11:07] LABS: BASO# 0.03 X1000 (0.0-0.2); BASO% 0.2 % (0.0-0.8); EOS# 0.03 X1000 (0.0-0.7); EOS% 0.2 % (0.0-10.0); HEMATOCRIT 54.5 % (42.0-52.0); HEMOGLOBIN 17.3 g/dL (14.0-18.0); LYMPH# 1.72 X1000 (1.2-3.4); LYMPH% 11.7 % (20.5-51.1); MCHC 31.7 g/dL (33-37); MONO# 0.43 X1000 (0.11-0.59); MONO% 2.9 % (1.7-9.3); MPV 11.1 FL (7.4-10.4); NEUT# 12.13 X1000 (1.4-6.5); PLT 220 X1000 (130-400); RBC 6.65 XMIL (4.7-6.1); RDW 12.7 % (11.5-14.5); WBC 14.64 X1000 (4.8-10.8)
[2019-05-24] MEDS ORDERED: NS 1,000 ML IV ONE ×2 (11:08→12:40)
[2019-05-24] MEDS ORDERED: ZOFRAN IV ONE (11:08)
[2019-05-24 11:28] LABS: ACETAMINOPHEN < 1.2 ug/mL (10-30); AGAP 19; ALBUMIN 5.2 g/dL (3.5-5.0); ALKALINE PHOSPHATASE 290 U/L (32-122); BUN 23 mg/dL (8-22); CHLORIDE 96 mmol/L (98-107); COSMO 285; ESTIMATED GFR 37; GLUCOSE 124 mg/dL (70-104); GOT 88 U/L (10-34); GPT 34 U/L (10-44); POTASSIUM 4.3 mmol/L (3.5-5.1); SALICYLATES < 3.00 mg/dL (3-10); SODIUM 140 mmol/L (136-145); TCO2 25 mmol/L (25-35); TOTAL PROTEIN 8.4 g/dL (6.3-8.3)
--- NOTE | 2019-05-24 12:00 | Diag Imaging Result Doc PS360 ---
EXAM: CHEST-2 VIEWS HISTORY: possible aspiration TECHNIQUE: Two views COMPARISON: 07/24/2018 FINDINGS: The lungs are well expanded. The heart is not enlarged. The vessels are not distended. There are no infiltrates. No pleural effusions. IMPRESSION: No pneumonia Electronically signed by Martin Miller 05/24/2019 11:58 AM
--- NOTE | 2019-05-24 12:06 | EKG Report ---
Test Performed on : 05/24/2019 11:15:37 AM Test Reason : overdose Blood Pressure : / mmHG Vent. Rate : 107 BPM Atrial Rate : 107 BPM P-R Int : 142 ms QRS Dur : 076 ms QT Int : 344 ms P-R-T Axes : 050 006 040 degrees QTc Int : 459 ms Sinus tachycardia. Possible Left atrial enlargement Borderline ECG When compared with ECG of 25-JUL-2018 12:24, Vent. rate has increased BY 49 BPM QT has lengthened Unconfirmed Result
[2019-05-24 13:03] LABS: UR AMPHETAMINES QUAL NONE DETECTED (NONE DETECT); UR BARBITUATES QUAL NONE DETECTED (NONE DETECT); UR BENZODIAZEPIN QUAL NONE DETECTED (NONE DETECT); UR CANNABINOIDS QUAL NONE DETECTED (NONE DETECT); UR COCAINE QUAL NONE DETECTED (NONE DETECT); UR METHADONE QUAL NONE DETECTED (NONE DETECT); UR METHAMPHETAMINE QUAL NONE DETECTED (NONE DETECT); UR OPIATES QUAL NONE DETECTED (NONE DETECT); UR OXYCODONE QUAL PRESUMPTIVE POSITIVE (NONE DETECT); UR PCP QUAL NONE DETECTED (NONE DETECT); UR PROPOXYPHENE QUAL NONE DETECTED (NONE DETECT); UR TCA QUAL NONE DETECTED (NONE DETECT)
--- NOTE | 2019-05-24 13:37 | PROVIDER DOCUMENTATION ---
This chart was entered by Rajwinder Chen Scribe, acting as scribe for Manny Prak MD. [id number] Abuse/Overdose - General Chief Complaint: Overdose Stated Complaint: OVER DOSE / WITHDRAWLS Time Seen by Provider: 05/24/19 10:49 Source: patient, family, old records Allergies/Adverse Reactions: Allergies Allergy/AdvReac Type Severity Reaction Status Date / Time No Known Allergies Allergy Verified 05/24/19 11:10 Home Medications: Home Medication List Medication Instructions Recorded Confirmed Last Taken Type Diclofenac Sodium 1 tab PO BID 05/24/19 05/24/19 Unknown History Hydroxyzine HCl 1 tab PO TID 05/24/19 05/24/19 Unknown History Oxycodone HCl 1 tab PO BID 05/24/19 05/24/19 Unknown History Pravastatin Sodium 1 tab PO HS 05/24/19 05/24/19 Unknown History Prazosin [Minipress] 3 mg PO HS 05/24/19 05/24/19 Unknown History Secukinumab [Cosentyx Pen] 150 mg SQ Q30D 05/24/19 05/24/19 Unknown History Venlafaxine HCl [Venlafaxine HCl 150 mg PO DAILY 05/24/19 05/24/19 Unknown History ER] - History of Present Illness-Drug/Alcohol Nature of Presenting Problem: pt is a 39 yowm presenting to er w/ w/cc sts pt OD last night on muscle relaxer, prednisone, oxycodone and ibuprofen, was taken to [facility], got 2 doses of narcan and dc'd home. sts pt was signing a form when she entered room and was dc'd. pt and confirm he did take rx on purpose and are unsure of how many of each rx was taken. pt has not eaten in 1.5wks, has been v/n and has epigastric abd pain. pt has hx of SI, anx/dep, scoratic arthritis abnd hemachromatosis. pt gets IM cocentyx. pt has not worked in 3 yrs, sts trying to get on disability. pt had prev SI attempt in July 2018. This episode of drinking or use began:: last night Severity: reports: moderate Psychiatric Complaints: reports: suicidal ideation Associated Symptoms: reports: nausea, vomiting, other (epigastric abd pain) Any injuries associated with this episode of intoxication?: No Similar Symptoms Previously?: Yes Recently seen or treated by another doctor?: Yes ([place] last night ) - Overdose Intentional drug overdose?: Yes Suicide Risk Assessment: male sex, prior attempt, organized plan, frightened friends-family Review of Systems - Adult - REVIEW OF SYSTEMS - ADULT Constitutional: reports: no symptoms reported. denies: chills, fever, fatique Eyes: reports: no symptoms reported Ears, Nose, Mouth & Throat: reports: no symptoms reported Cardiovascular: reports: no symptoms reported. denies: chest pain, palpitations Respiratory: reports: no symptoms reported. denies: pleurisy, shortness of b reath, wheezing Gastrointestinal: reports: see HPI, abdominal pain, nausea, poor appetite, vomiting. denies: diarrhea, difficulty swallowing, frequent heartburn Genitourinary: reports: no symptoms reported Musculoskeletal: reports: no symptoms reported Integumentary: reports: no symptoms reported Neurological: reports: no symptoms reported Psychiatric: reports: no symptoms reported Endocrine: reports: no symptoms reported Hematologic/Lymphatic: reports: no symptoms reported Allergic/Immunologic: reports: no symptoms reported All Other Systems: Reviewed and Negative Past History - Adult - PAST MEDICAL HISTORY-ADULT Review of Records: reports: Nursing Assessment Review, Medications Reviewed, Social history reviewed & non-contributory. Major Childhood Illnesses: reports: denies history Cardiovascular: reports: denies history Respiratory: reports: denies history Gastrointestinal: reports: denies history Obstetrical/Gynecological: reports: denies history Genitourinary: reports: denies history Musculoskeletal: reports: denies history Neurological: reports: denies history Psychiatric: reports: anxiety, depression, suicide attempt Endocrine/Immune: reports: denies history Other Conditions: reports: denies history - PRIOR SURGERIES/PROCEDURES Surgical/Procedure History: reports: other - IMMUNIZATION STATUS Childhood Immunizations: See Nurse Assessment Flu Vaccine: See Nurse Assessment - FAMILY HISTORY Family History: reviewed, not pertinent - SOCIAL HISTORY Smoking: cigarettes, greater than 1 pack/day Provider spent 3-5 mins advising pt. on dangers of tobacco.: Discussed manners to quit use, and f/u contacts for add'l counseling. Substance Use: none/never Physical Exam-General - PHYSICAL EXAM-ADULT Initial Vital Signs Reviewed: Yes - CONSTITUTIONAL General Appearance: alert, no apparent distress - EYES Eyes: PERRL/EOMI, pink conjunctivae - HEAD, EARS, NOSE, MOUTH & THROAT HENMT: normocephalic/atraumatic, moist mucous membranes, normal ENT inspection - NECK Neck: non-tender, full range of motion, supple, normal inspection - RESPIRATORY Respiratory: chest non-tender, lungs clear, normal breath sounds - CARDIOVASCULAR Cardiovascular: normal peripheral pulses, no edema, no gallop, no JVD, no murmur , tachycardia. negative: regular rate, rhythm, JVD, bradycardia - GASTROINTESTINAL (ABDOMEN) Abdominal Exam: normal bowel sounds, soft, no organomegaly, no pulsatile mass, tenderness (epigastric on palp). negative: non tender, guarding, rigid, rebound - MUSCULOSKELETAL Back Exam: normal inspection Extremity: normal range of motion, non-tender, normal inspection - SKIN Integumentary: normal color, normal turgor, warm/dry - NEUROLOGIC Neurologic: grossly normal, no motor/sensory deficits - PSYCHIATRIC Psych/Mental Status: normal thought content, normal thought process, oriented x 3, depressed affect. negative: normal mood/affect, anxious, paranoid, tearful Progress - PLAN OF CARE/RESULTS Progress/Plan/Lab Results: Vital Signs - 8 hr 05/24/19 10:43 05/24/19 13:38 Temperature 97.5 F L Pulse Rate 125 H 101 H Respiratory Rate 18 20 Blood Pressure 141/104 144/104 O2 Sat by Pulse Oximetry 97 99 Laboratory Results - last 24 hr 05/24/19 05/24/19 05/24/19 11:00 11:00 11:00 WBC 14.64 H RBC 6.65 H Hgb 17.3 Hct 54.5 H MCV 82.0 MCH 26.0 L MCHC 31.7 L RDW Std Deviation 12.7 Plt Count 220 MPV 11.1 H Immature Gran % (Auto) 2.0 H Neut % (Auto) 83.0 H Lymph % (Auto) 11.7 L [place] % (Auto) 2.9 Eos % (Auto) 0.2 Baso % (Auto) 0.2 Immature Gran # (Auto) 0.30 H Neut # (Auto) 12.13 H Lymph # (Auto) 1.72 [place] # (Auto) 0.43 Eos # (Auto) 0.03 Baso # (Auto) 0.03 Sodium 140 Potassium 4.3 Chloride 96 L Carbon Dioxide 25 Anion Gap 19 BUN 23 H Creatinine 2.0 H Estimated GFR/1.73 m2 37 BUN/Creatinine Ratio 12 Glucose 124 H POC Glucose Calculated Osmolality 285 Calcium 9.0 Total Bilirubin 0.30 AST 88 H ALT 34 Alkaline Phosphatase 290 H Total Protein 8.4 H Albumin 5.2 H Globulin 3.0 Albumin/Globulin Ratio 2.0 Salicylates < 3.00 L Urine Opiates Screen Ur Oxycodone Screen Urine Methadone Screen U Propoxyphene Qual Acetaminophen < 1.2 L Ur Barbituates Screen Ur Tricyclics Screen Ur Phencyclidine Scrn Ur Amphetamines Screen U Methamphetamines Scrn U Benzodiazepines Scrn Urine Cocaine Screen U Cannabinoids Screen Plasma/Serum Ethyl Alc 05/24/19 05/24/19 11:22 12:40 WBC RBC Hgb Hct MCV MCH MCHC RDW Std Deviation Plt Count MPV Immature Gran % (Auto) Neut % (Auto) Lymph % (Auto) [place] % (Auto) Eos % (Auto) Baso % (Auto) Immature Gran # (Auto) Neut # (Auto) Lymph # (Auto) [place] # (Auto) Eos # (Auto) Baso # (Auto) Sodium Potassium Chloride Carbon Dioxide Anion Gap BUN Creatinine Estimated GFR/1.73 m2 BUN/Creatinine Ratio Glucose POC Glucose 94 Calculated Osmolality Calcium Total Bilirubin AST ALT Alkaline Phosphatase Total Protein Albumin Globulin Albumin/Globulin Ratio Salicylates Urine Opiates Screen NONE DETECTED Ur Oxycodone Screen PRESUMPTIVE POSITIVE A Urine Methadone Screen NONE DETECTED U Propoxyphene Qual NONE DETECTED Acetaminophen Ur Barbituates Screen NONE DETECTED Ur Tricyclics Screen NONE DETECTED Ur Phencyclidine Scrn NONE DETECTED Ur Amphetamines Screen NONE DETECTED U Methamphetamines Scrn NONE DETECTED U Benzodiazepines Scrn NONE DETECTED Urine Cocaine Screen NONE DETECTED U Cannabinoids Screen NONE DETECTED Plasma/Serum Ethyl Alc Orders Category Date Time Status Admit - [facility] Routine AdmDCTranf 05/24/19 14:19 Active Cardiac Monitoring DIRECTED Care 05/24/19 10:49 Active Finger Stick Blood Sugar (ED) DIRECTED Care 05/24/19 10:49 Active Oxygen Therapy- ED Nursing DIRECTED Care 05/24/19 11:17 Active Saline Loc NOW Care 05/24/19 11:00 Active CHEST-2 VIEWS [RAD] Stat Exams 05/24/19 11:39 Completed ACETAMINOPHEN [TDM] Stat Lab 05/24/19 11:00 Completed ALCOHOL BLOOD Stat Lab 05/24/19 11:00 Completed CBC WITH ELECTRONIC DIFF [HEME] Stat Lab 05/24/19 11:00 Completed COMPREHENSIVE METABOLIC PANEL [CHEM] Stat Lab 05/24/19 11:00 Completed SALICYLATES [TDM] Stat Lab 05/24/19 11:00 Completed [address]INE DRUG SCREEN [address] Stat Lab 05/24/19 12:40 Completed 0.9% Sodium Chloride Inj [Ns] 1,000 ml Med 05/24/19 11:08 Discontinued IV 999 mls/hr 0.9% Sodium Chloride Inj [Ns] 1,000 ml Med 05/24/19 12:40 Discontinued IV 999 mls/hr Ondansetron [Zofran] Med 05/24/19 11:08 Discontinued 4 mg IV NOW ONE Overdose (suspected) Stat Oth 05/24/19 10:48 Ordered EKG [EKG] Stat Ther 05/24/19 10:49 Draft Result Diagrams: 05/24/19 11:00 05/24/19 11:00 - EKG 1 Time of EKG reading by physician:: 11:15 EKG Read and Signed by:: Manny Park EKG Interpretation (*Must complete 3 of following elements*): Normal (borderline) Rate: 107 Rhythm: [facility] [place]: normal QRS: normal MT Interval: normal ST Wave: normal Comments: possible left atrial enlargement - CONSULTS/PCP/HOSPITALIST Notification #1 *Consult/PCP/Hospitalist*: d/w Dr Quinteros Time Discussed: 13:34 Consult Disposition: Admit Departure - Departure Date of Disposition Decision: 05/24/19 Time of Disposition Decision: 13:36 DIAGNOSIS: Suicidal overdose, Depression, INDIRA (acute kidney injury) Disposition: ADMITTED INPATIENT 09 Certified Medical Emergency: Emergent Condition: Stable Referrals and Follow-Ups: Yumiko Perez [Primary Care Provider] - - Critical Care Note This patient required my direct & personal management of CC.: No Attestation - Physician/ LUIS Attestation Patient care was provided by Advanced Practice Provider:: No The physician spent face to face time with patient:: Yes Advanced Practice Provider documentation review:: Supervising physician onsite and consulted in the evaluation and care of this patient. The physician did have a face to face encounter with the patient. This chart was documented by the indicated scribe, (Rajwinder Chen, David) and accurately reflects the services I performed and decisions made by me, Manny Park MD, as attested by the provider's signature.
--- NOTE | 2019-05-24 15:12 | HISTORY AND PHYSICAL ---
PRIMARY CARE PHYSICIAN: Dr. Perez. TOP STITCHER: Dr. Dickey. PAIN CLINIC PHYSICIAN: Dr. Padron. PSYCHIATRIST: Followed by [facility] for psychiatric needs. CHIEF COMPLAINT: Overdosed on a muscle relaxer, prednisone, oxycodone, and ibuprofen last night. Had been seen at [facility]. Received 2 doses of Narcan, and then was discharged home. He has continued to have nausea, vomiting, headache, and abdominal pain, so he presented to the ER here for further evaluation and treatment. HISTORY OF PRESENTING ILLNESS: This is a 39-year-old, male with a history of depression and anxiety, psoriatic arthritis and hemochromatosis, who presents to [facility] ER after he states last night, he overdosed on a muscle relaxer, prednisone, oxycodone, and ibuprofen. Was seen at [facility] ER, and was given 2 doses of Narcan and then discharged home. He returns to the ER here today, stating that he is still having nausea, vomiting, headache, and some abdominal pain. He still is having depression. States that he had an argument with his about going to [employer] and that he did not want to go, but then he found out that she still planned on going, and so he got upset about that, and took an overdose last night. His workup here in the emergency room showed a white blood cell count of 14.64, BUN of 23, with a creatinine of 2, mild bump in his AST at 88. Urine drug screen was presumptive positive for oxycodone, but he has a prescription for that. His serum alcohol level shows none detected. He states he quit drinking back in July of this year. He does continue to smoke a pack of cigarettes a day. His chest x-ray showed no pneumonia, but he will be admitted on a one-to-one observation for further evaluation and treatment. PAST MEDICAL HISTORY: Psoriatic arthritis, hemochromatosis, anxiety, depression, and hepatic steatosis. PAST SURGICAL HISTORY: None. FAMILY HISTORY: On his mom's side, there is basal cell carcinoma, TN, and hypertension. His sister had thyroid cancer. Father had diabetes. SOCIAL HISTORY: Currently lives with his . Smokes 1 pack of cigarettes a day and has done so since 07/2018. He does still dip tobacco occasionally. No alcohol use since 07/2018, and denies any illicit drug use. ALLERGIES: He has no known drug allergies. HOME MEDICATIONS: He takes diclofenac 75 mg p.o. b.i.d., hydroxyzine 50 mg p.o. t.i.d., oxycodone 10 mg p.o. b.i.d., pravastatin 10 mg p.o. at bedtime, prazosin 3 mg p.o. at bedtime, Cosentyx pen subcutaneously every 30 days will be held, and venlafaxine 150 mg p.o. daily. IMAGING AND LABORATORY DATA: Laboratory data showed a white blood cell count of 14.64, hemoglobin of 17.3, hematocrit 54.5, platelets 220,000. Sodium 140, potassium 4.3, chloride 96, CO2 of 25, BUN of 23, creatinine 2, glucose 124. AST of 88, ALT 34, alkaline phosphatase 290. Salicylate was less than 3. Acetaminophen less than 1.2. Oxycodone was positive in his urine drug screen. Serum alcohol level showed none detected. Chest x-ray showed no pneumonia. EKG showed sinus tachycardia at 107. REVIEW OF SYSTEMS: He denied any fever, chills, blurred vision, dizziness. He does have a headache. Denied any chest pain, coughing, shortness of breath. He does have some generalized abdominal pain, nausea, vomiting. Denied any constipation, diarrhea, burning or hurting with urination. PHYSICAL EXAMINATION: VITAL SIGNS: On arrival, he had a temperature of 97.5 degrees, pulse 125, respirations 18, blood pressure was 141/104, saturating 97% on room air. GENERAL: This is a 39-year-old, male, who is sitting up in the bed and answers questions appropriately. also at the bedside to answer questions. HEENT: Normocephalic, atraumatic. Normal ENT inspection. Oropharynx and nares are clear. Eyes: Pupils are equal, round, reactive to light and accommodation. Extraocular movements are intact. NECK: Normal inspection. Normal range of motion. LUNGS: Clear to auscultation bilaterally. Equal lung expansion and chest wall movement. HEART: Regular rate and rhythm. No murmurs, rubs, or gallops. He did have some tachycardia on arrival, but that is improved. ABDOMEN: Soft, nontender, nondistended. Bowel sounds are present x4 quadrants. MUSCULOSKELETAL: He had 5/5 strength x4 extremities. NEUROLOGICAL: The cranial nerves II through XII appear grossly intact. ASSESSMENT: 1. Drug overdose last night. 2. Acute kidney injury. 3. Leukocytosis. 4. Depression. PLAN: He will be admitted to the medical unit at [place], placed on one-to-one observation, telemetry, regular diet. Will continue his home medications, place him on normal saline at 125 mL an hour, Zofran 4 mg IV every 4 hours p.r.n., and recheck a CBC and BMP in the a.m. Once his creatinine returns to normal, we will consult [facility] for psychiatric assistance and possible transfer there to treat his depression and overdose. Dictated by CHRISTIAN Murillo for Eulogio Quinteros MD cc: CHRISTIAN Murillo MD Faye Wilson, MD
--- NOTE | 2019-05-24 15:54 | HISTORY AND PHYSICAL ---
HISTORY OF PRESENT ILLNESS: The patient presented to the hospital after having overdosed on muscle relaxer, prednisone, oxycodone and ibuprofen. He was seen by Marcos Alfonso and then discharged. He re-presented today. Would prefer to go through further inpatient treatment, although we will need to admit him. Give him some fluids for his acute kidney injury and follow. cc: Eulogio Quinteros MD
[2019-05-24] MEDS: NS 1,000 ML IV SCH (17:33)
[2019-05-24] MEDS: ZOFRAN IV PRN (17:34)
[2019-05-24] MEDS: TYLENOL PO PRN (18:28)
[2019-05-24] MEDS ORDERED: MINIPRESS PO SCH (21:00)
[2019-05-24] MEDS: ATARAX PO SCH (21:43)
[2019-05-24] MEDS: PRAVACHOL PO SCH (21:45)
[2019-05-24] MEDS: VOLTAREN PO SCH (21:46)
[2019-05-24] MEDS: OXYCONTIN PO SCH (21:46)
[2019-05-25] MEDS: NS 1,000 ML IV SCH ×4 (01:45→20:34)
[2019-05-25 06:01] LABS: BASO# 0.03 X1000 (0.0-0.2); BASO% 0.3 % (0.0-0.8); EOS# 0.01 X1000 (0.0-0.7); EOS% 0.1 % (0.0-10.0); HEMATOCRIT 44.9 % (42.0-52.0); HEMOGLOBIN 14.1 g/dL (14.0-18.0); IMM GRAN# 0.16 X1000 (0.0-0.04); IMM GRAN% 1.4 % (0.0-0.5); LYMPH# 0.65 X1000 (1.2-3.4); LYMPH% 5.9 % (20.5-51.1); MCH 26.2 PG (27-31); MCHC 31.4 g/dL (33-37); MCV 83.3 FL (81-99); MONO# 0.08 X1000 (0.11-0.59); MONO% 0.7 % (1.7-9.3); MPV 10.8 FL (7.4-10.4); NEUT# 10.18 X1000 (1.4-6.5); NEUT% 91.6 % (42.2-75.2); PLT 132 X1000 (130-400); RBC 5.39 XMIL (4.7-6.1); RDW 12.7 % (11.5-14.5); WBC 11.11 X1000 (4.8-10.8)
[2019-05-25 06:43] LABS: CALCIUM 7.3 mg/dL (8.8-10.2); CREATININE 1.8 mg/dL (0.7-1.2); POTASSIUM 4.1 mmol/L (3.5-5.1)
[2019-05-25] MEDS ORDERED: NS 1,000 ML IV SCH (08:00)
[2019-05-25] MEDS: ATARAX PO SCH ×3 (08:08→20:38)
[2019-05-25] MEDS: OXYCONTIN PO SCH ×2 (08:09→20:37)
[2019-05-25] MEDS: VOLTAREN PO SCH (10:14)
[2019-05-25] MEDS: EFFEXOR XR PO SCH (10:14)
[2019-05-25 11:08] LABS: BANDS 8 % (0-1); LYMPHS 5 % (21-51); MONO 4 % (1-9); SEGS 83 % (42-75)
[2019-05-25] MEDS ORDERED: NS 1,000 ML IV ONE (11:39)
[2019-05-25] MEDS: ZOFRAN IV PRN (15:33)
--- NOTE | 2019-05-25 15:44 | PROGRESS NOTE ---
DATE: 05/25/2019 SUBJECTIVE: The patient has no major complaints. OBJECTIVE: Vital Signs: Blood pressure is 99/65, heart rate of 92, respiratory rate 18, temperature 98 degrees, and oxygen saturation is 98% on 2 L. Cardiovascular: Regular rate and rhythm. Pulmonary: Bilateral breath sounds, clear to auscultation. Gastrointestinal: Soft, nontender, nondistended. Bowel sounds are positive. LABORATORY DATA: White count is 11, hemoglobin and hematocrit of 14 and 44, platelets 132,000. Creatinine is down to 1.8. PROBLEM LIST: 1. Acute kidney injury. We will continue IV fluids and follow closely. Check urine electrolytes, renal ultrasound, and monitor. As far as his acute renal injury, also avoid nephrotoxic drugs. 2. Drug overdose, intentional suicide attempt. We are continuing to monitor one-on-one. Once his kidney function is stabilized, we will get a psychiatric evaluation. 3. Depression. Continue his regular medications and follow. 4. Transient hypotension, not sure if this is related to his kidney dysfunction, but we will continue to monitor closely. cc: Aaron Gomez MD
[2019-05-25 17:34] LABS: UR CREAT RANDOM 251.1 mg/dL (14-26); UR PROT RANDOM 67.2 mg/dL; UR SODIUM < 10 mmoll
[2019-05-25] MEDS: PRAVACHOL PO SCH (20:38)
[2019-05-26] MEDS: TYLENOL PO PRN (04:27)
[2019-05-26] MEDS: ZOFRAN IV PRN ×2 (04:28→13:56)
[2019-05-26] MEDS: NS 1,000 ML IV SCH ×2 (04:29→13:55)
[2019-05-26 06:40] LABS: BASO# 0.01 X1000 (0.0-0.2); BASO% 0.2 % (0.0-0.8); EOS# 0.01 X1000 (0.0-0.7); EOS% 0.2 % (0.0-10.0); HEMATOCRIT 37.4 % (42.0-52.0); HEMOGLOBIN 11.6 g/dL (14.0-18.0); IMM GRAN# 0.11 X1000 (0.0-0.04); IMM GRAN% 2.6 % (0.0-0.5); LYMPH# 0.27 X1000 (1.2-3.4); LYMPH% 6.4 % (20.5-51.1); MCH 25.2 PG (27-31); MCV 81.3 FL (81-99); MONO# 0.03 X1000 (0.11-0.59); MONO% 0.7 % (1.7-9.3); MPV 11.3 FL (7.4-10.4); NEUT% 89.9 % (42.2-75.2); PLT 64 X1000 (130-400); RDW 12.4 % (11.5-14.5); WBC 4.23 X1000 (4.8-10.8)
[2019-05-26 06:52] LABS: ESTIMATED GFR > 60
[2019-05-26 06:56] LABS: AGAP 13; BUN 41 mg/dL (8-22); CHLORIDE 110 mmol/L (98-107); COSMO 292; CREATININE 1.2 mg/dL (0.7-1.2); GLUCOSE 102 mg/dL (70-104); PHOSPHORUS 1.4 mg/dL (2.7-4.5); POTASSIUM 3.9 mmol/L (3.5-5.1); SODIUM 141 mmol/L (136-145); TCO2 19 mmol/L (25-35)
[2019-05-26 07:03] LABS: CALCIUM 6.9 mg/dL (8.8-10.2)
[2019-05-26 07:31] LABS: BANDS 11 % (0-1); LYMPHS 8 % (21-51); MONO 1 % (1-9); SEGS 80 % (42-75)
[2019-05-26] MEDS: OXYCONTIN PO SCH ×2 (08:29→20:58)
[2019-05-26] MEDS: EFFEXOR XR PO SCH (08:29)
[2019-05-26] MEDS: ATARAX PO SCH ×3 (08:30→20:58)
--- NOTE | 2019-05-26 10:22 | Diag Imaging Result Doc PS360 ---
EXAM: US RENAL 2 (RETROPER) COMPLETE HISTORY: lyndsay/arf TECHNIQUE: Real-time transabdominal evaluation of the kidneys and bladder. Standard protocol. COMPARISON: None. FINDINGS: Right kidney: 9.9 centimeters in length. Renal echotexture is normal. There is no hydronephrosis, nephrolithiasis, or focal renal mass. Left kidney: 11 cm centimeters in length. Renal echotexture is normal. There is no hydronephrosis, nephrolithiasis, or focal renal mass. Bladder: No focal abnormality is appreciated. IMPRESSION: Normal renal ultrasound. Electronically signed by Mariela Dan 05/26/2019 10:19 AM
[2019-05-26] MEDS ORDERED: CALCIUM GLUCONATE 4.65 MEQ in NS 50 ML IV ONE (10:51)
[2019-05-26] MEDS ORDERED: SODIUM PHOSPHATE 40 MEQ in NS 250 ML IV ONE (10:51)
--- NOTE | 2019-05-26 14:57 | PROGRESS NOTE ---
DATE: 05/26/2019 SUBJECTIVE: Patient has no major complaints. OBJECTIVE: Vital Signs: Blood pressure 133/90, heart rate of 90, respiratory rate of 20, oxygen saturation 92 to 93 percent on room air. Cardiovascular: Regular rate and rhythm. Pulmonary: Bilateral breath sounds. Clear to auscultation. GI: Soft, nontender, nondistended. Bowel sounds are positive. LABORATORY DATA: White count is 4, hemoglobin and hematocrit 11 and 37, platelets of 64. Creatinine is down to 1.2, BUN of 41, calcium 6.9, Mag of 1.4. Urine electrolytes are consistent with INDIRA. ASSESSMENT AND PLAN: 1. Acute kidney injury. We will continue intravenous fluids and follow. 2. Drug overdose. We will continue to monitor. Working on psychiatric evaluation; that will probably happen tomorrow. 3. Depression. Continue his regular medications until psychiatric evaluation. 4. Hypotension which has stabilized. DISPOSITION: Pending [place] evaluation, which will probably at this point occur tomorrow. cc: Aaron Gomez MD MTDD
[2019-05-26 17:33] LABS: OCCULT BLOOD 1 POSITIVE (NEGATIVE)
[2019-05-26] MEDS: PRAVACHOL PO SCH (20:57)
[2019-05-27] MEDS: TYLENOL PO PRN (00:35)
[2019-05-27] MEDS: NS 1,000 ML IV SCH (01:10)
[2019-05-27 06:46] LABS: AGAP 12; BUN 27 mg/dL (8-22); CALCIUM 7.4 mg/dL (8.8-10.2); CHLORIDE 111 mmol/L (98-107); COSMO 291; CREATININE 0.9 mg/dL (0.7-1.2); ESTIMATED GFR > 60; GLUCOSE 111 mg/dL (70-104); PHOSPHORUS 1.7 mg/dL (2.7-4.5); POTASSIUM 3.7 mmol/L (3.5-5.1); SODIUM 143 mmol/L (136-145); TCO2 20 mmol/L (25-35)
[2019-05-27] MEDS: OXYCONTIN PO SCH ×2 (09:10→20:40)
[2019-05-27] MEDS: EFFEXOR XR PO SCH (09:10)
[2019-05-27] MEDS: ATARAX PO SCH (09:10)
--- NOTE | 2019-05-27 10:23 | Diag Imaging Result Doc PS360 ---
EXAM: CHEST-PORTABLE 05/27/2019 HISTORY: hypoxia TECHNIQUE: AP portable erect at 1013 COMMENT: There are dense alveolar opacities throughout both lungs. This was not the case on 05/24/2019. IMPRESSION: [place] pulmonary edema. Electronically signed by Daniel Yeung 05/27/2019 10:21 AM
[2019-05-27 10:52] LABS: BE -1.8 mmoll (-3.0-3.0); BLOOD TYPE ARTERIAL; HCO3-(ACT) 23.2 mmoll (20.0-26.0); METHB 1.3 % (0.0-1.5); O2(CT) 12.8 mL/dL (15.0-23.0); PCO2(98.6) 33 mmHg (35-45); SAMPLE BLOOD; SAO2 84.4 % (95.0-100.0); THB 11.2 g/dL (11.5-17.4); pH(98.6) 7.43 (7.35-7.45)
[2019-05-27] MEDS ORDERED: LASIX IV ONE (11:00)
[2019-05-27] MEDS ORDERED: FLAGYL 500 MG/NS 500 MG/100 ML IVPB IV SCH (11:30)
[2019-05-27 11:55] LABS: BASO# 0.05 X1000 (0.0-0.2); BASO% 4.2 % (0.0-0.8); HEMATOCRIT 34.4 % (42.0-52.0); HEMOGLOBIN 11.1 g/dL (14.0-18.0); IMM GRAN# 0.13 X1000 (0.0-0.04); LYMPH# 0.09 X1000 (1.2-3.4); LYMPH% 7.6 % (20.5-51.1); MCH 25.9 PG (27-31); MCHC 32.3 g/dL (33-37); MCV 80.4 FL (81-99); MONO# 0.05 X1000 (0.11-0.59); MONO% 4.2 % (1.7-9.3); MPV 10.6 FL (7.4-10.4); NEUT# 0.86 X1000 (1.4-6.5); RBC 4.28 XMIL (4.7-6.1); RDW 12.7 % (11.5-14.5); WBC 1.18 X1000 (4.8-10.8)
[2019-05-27 11:57] LABS: PLT 19 X1000 (130-400)
[2019-05-27 12:18] LABS: CK INDEX 0.1 (0.0-2.5); CK-MB 1.93 ng/mL (0.0-5.0)
--- NOTE | 2019-05-27 12:22 | PROGRESS NOTE ---
DATE: 05/27/2019 SUBJECTIVE: Patient has developed progressive shortness of breath and cough today and this is steady. OBJECTIVE: Blood pressure 146/80, heart rate of 110, respiratory rate 22, temperature 99.7 degrees, 85% on 4 L. He is on a non-rebreather now.Cardiovascular: Regular rate and rhythm. Pulmonary: Diffuse crackles. GI: Soft, nontender, nondistended. Bowel sounds positive. Today, BUN and creatinine are 27 and 0.9. His phos is 1.7. His albumin is 3. He is heme positive. PROBLEM LIST: 1. Acute hypoxic respiratory failure. Differential is flash pulmonary edema versus ARDS, aspiration type pneumonitis. We are going to stop IV fluids, start Lasix, get an echo, cardiac enzymes. I am going to start broad-spectrum antibiotics because he has had intermittent nausea, vomiting, and this may be an aspiration type event. He needs a pulmonary consult. I put him on BiPAP. If he continues to deteriorate, he may require intubation, but I am hopeful if we can get him his medications he can get situated pretty quickly. 2. Possible aspiration type pneumonia again. We started cefepime and Flagyl. We will continue breathing treatments and follow. 3. Suicide attempt, depression overload. He is on one-to-one still until he can get psych clearance which right now that is further and further away, unfortunately. 4. History of psoriatic arthritis, not an active issue per se, but he does take immune modulators which puts him at risk for different types of interstitial pneumonitis. He also has hemochromatosis but is not in cirrhosis that we are aware of. In any case, we will continue to monitor closely. He is going to need critical care, so we are going to get him to the main hospital for evaluation for Pulmonary and possibly Cardiology depending on what his echo shows, if he truly has heart failure. I discussed the findings with the patient and . 5. 32 minute critical care time, positive pressure ventilation, hypoxic respiratory failure. cc: Aaron Gomez MD
--- NOTE | 2019-05-27 12:57 | EKG Report ---
Test Performed on : 05/27/2019 10:34:31 AM Test Reason : dyspnea Blood Pressure : / mmHG Vent. Rate : 120 BPM Atrial Rate : 120 BPM P-R Int : 146 ms QRS Dur : 090 ms QT Int : 314 ms P-R-T Axes : 035 002 042 degrees QTc Int : 443 ms Sinus tachycardia. Possible Left atrial enlargement Borderline ECG When compared with ECG of 24-MAY-2019 11:15, (Unconfirmed) No significant change was found Confirmed by Santiago Gates MD ([id number]) on 06/01/2019 1:48:41 AM
[2019-05-27] MEDS ORDERED: MAXIPIME 2 GM/NS 2 GM/100 ML IVPB IV SCH (13:00)
[2019-05-27 13:16] LABS: PO2(98.6) 40 mmHg (60-100)
[2019-05-27 13:17] LABS: ALLEN TEST NO; MODALITY VENTIMASK; O2HB 81.6 % (95.0-99.0)
[2019-05-27 13:31] LABS: MONO 10 % (1-9); SEGS 90 % (42-75)
--- NOTE | 2019-05-27 13:47 | PROGRESS NOTE ---
DATE: 05/27/2019 ADDENDUM: He did respond well to the Lasix, so I do think a component of this is volume overload. However, he has developed profound pancytopenia. White count was dropping yesterday 4000, but today is down to 1000. Hemoglobin and hematocrit is 11 and 34, which is a little bit of a drop, but his platelets have dropped to 19,000. I am not sure if he is going into DIC. We will check coagulation profile, fibrinogen, get a Heme-Onc consult. He is also developing a fever, and he may need mechanical ventilation if he does not improve. I have started cefepime and Flagyl for aspiration type coverage. We will monitor. Hesitant to use Zyvox because of his cytosuppression already, and vancomycin for his thrombocytopenic affects, but he will need to be monitored. Lactate fortunately is normal, but he has combination looks like of aspiration pneumonia and volume overload. Echo is also pending. cc: Aaron Gomez MD
[2019-05-27 14:44] LABS: BLOOD TYPE ARTERIAL; SAMPLE BLOOD
[2019-05-27 14:51] LABS: BLOOD TYPE ARTERIAL; SAMPLE BLOOD
[2019-05-27] MEDS ORDERED: SODIUM CHLORIDE 0.9% INJ SCH (15:00)
[2019-05-27] MEDS ORDERED: PROTONIX IV SCH (15:00)
[2019-05-27 15:06] LABS: INR 1.24; PROTIME 15.8 Seconds (11.0-16.0)
[2019-05-27 15:07] LABS: PTT 30.4 Seconds (22.3-41.8)
[2019-05-27 15:15] LABS: BASO# 0.03 X1000 (0.0-0.2); BASO% 3.5 % (0.0-0.8); HEMATOCRIT 34.1 % (42.0-52.0); HEMOGLOBIN 11.3 g/dL (14.0-18.0); IMM GRAN# 0.08 X1000 (0.0-0.04); IMM GRAN% 9.4 % (0.0-0.5); LYMPH# 0.06 X1000 (1.2-3.4); LYMPH% 7.1 % (20.5-51.1); MCH 26.7 PG (27-31); MCHC 33.1 g/dL (33-37); MCV 80.4 FL (81-99); MONO# 0.04 X1000 (0.11-0.59); MONO% 4.7 % (1.7-9.3); NEUT# 0.64 X1000 (1.4-6.5); NEUT% 75.3 % (42.2-75.2); RBC 4.24 XMIL (4.7-6.1); RDW 12.7 % (11.5-14.5); WBC 0.85 X1000 (4.8-10.8)
[2019-05-27 15:16] LABS: PLT 20 X1000 (130-400)
[2019-05-27] MEDS ORDERED: TYLENOL PO ONE (15:19)
[2019-05-27] MEDS ORDERED: NS 500 ML IV ONE (15:19)
--- NOTE | 2019-05-27 15:19 | PROGRESS NOTE ---
DATE: 05/27/2019 INTERVAL HISTORY: Mr. Chairez had developed acute hypoxic respiratory failure, pancytopenia/pulmonary edema at [facility]. He was given a dose of intravenous Lasix and was transferred to emergency room to [facility] for Pulmonology and Oncology Hematology evaluation. In the emergency room, he was found to be hypoxic with oxygen saturation 70% on 100% non-rebreather, so he was started on BiPAP. By the time I evaluated the patient, the patient was put on BiPAP for at least 15-20 minutes. SUBJECTIVE: He is on high-pressure BiPAP and he is not able to communicate or engage in a long conversation. Historical data was gathered from his at bedside. Apparently, patient did not have any symptoms whatsoever before he ingested opioids, ibuprofen, and muscle relaxants which were old around May 23. He went to outside hospital ER and was given Narcan and was sent home. However, patient started experiencing diarrhea and nausea and vomiting, so he presented to [facility] where he was being treated with supportive management for acute kidney injury, overdose, and suicide ideation with 1:1 observation and he did not have any distress until syrup maker today, where he was found to be short of breath and hypoxic and developing new pancytopenia. He was never really on any anticoagulation. VITALS: Temperature of 101.2 degrees, pulse 111, respiratory rate 38, blood pressure 124/76. He is saturating 98% on BiPAP. PHYSICAL EXAMINATION: He is in mild distress because of tachypnea. I could not examine oral cavity. Pupils are bilaterally equal reacting to light. His air entry appears bilaterally equal. No wheeze or rhonchi. He does have crackles in bilateral lung mittal. S1, S2 normal, tachycardic, regular, no murmur or gallop.Abdomen: Distended, soft. He does have generalized tenderness, however he is lying in the right lateral position because of shortness of breath. He is not able to lie down flat to assess abdomen better. He does have hyperactive bowel sounds. No lower extremity edema. He has a urine catheter. He is alert. LABS: Suggestive of profound leukopenia, anemia, thrombocytopenia, hypoxia, improving kidney function. Microbiology, stool occult blood test was positive. Stool for WBCs had a few WBCs. IMAGING: The latest chest x-ray suggests florid pulmonary edema. ASSESSMENT AND PLAN: 1. Acute hypoxic respiratory failure due to acute pulmonary edema and suspected bilateral multifocal pneumonia. 2. Sepsis due to suspected bilateral lung pneumonia versus an intra-abdominal pathology. Pending further imaging, stool studies. 3. Acute pulmonary edema leading to acute hypoxic respiratory failure. 4. Pancytopenia with profound thrombocytopenia, which could be in the setting of sepsis. 5. Suspected disseminated intravascular coagulation pending coagulation studies. 6. Overdose with ibuprofen, opioids, muscle relaxants on presentation to [facility] with history of depression, anxiety. 7. Prior history of hemochromatosis, now managed conservatively. 8. History of psoriasis on immunomodulator therapy monthly. Next dose to be received in one week. PLAN: 1. It is possible he is developing sepsis, which has caused his profound pancytopenia and flash pulmonary edema. The source of sepsis is not entirely clear. Pneumonia is a possibility. GI infection like colitis is certainly a possibility. Considering he is tender to palpation, acute colitis or toxic megacolon are also possibilities. I will keep him on intravenous cefepime and metronidazole. Follow up with abdominal x-ray. I would really want to get CT scan of his chest, abdomen, pelvis to evaluate better once he is more stable. I will follow up with blood culture, urine culture, and stool analysis. C. difficile studies are also pending. I will start him on intravenous diuresis for acute pulmonary edema. Keep him on BiPAP and follow up with serial ABG as well as chest x-rays. Pulmonology will be consulted. 2. The etiology of sudden pancytopenia is not entirely clear. It could be in the setting of profound sepsis. I will follow up blood culture results. I will follow up frequent CBCs and he may need a platelet transfusion soon. He does not have any signs of active bleeding though fecal occult blood test is positive and for acute gastrointestinal bleed, I will keep him on pantoprazole IV b.i.d. 3. Mr. Chairez's condition is really critical. More than 30 minutes of critical care time was spent in taking of Mr. Chairez. I evaluated him when he was in the emergency room. I extensively discussed plan of care with his and the patient. I had a discussion about code status and the patient states that he would want to get measures that his would suggest, and after having a discussion among themselves, the patient and mutually decided to keep patient full code. cc: MD Aaron Choudhury MD [facility]
--- NOTE | 2019-05-27 15:20 | Diag Imaging Result Doc PS360 ---
EXAM: US GB < RUQ (LIMITED) 05/27/2019 HISTORY: elevated liver enzymes TECHNIQUE: Right upper quadrant ultrasound. COMMENT: The pancreatic body and head are normal in appearance. The visualized portion of the aorta and inferior vena cava are within normal limits. The liver is unremarkable. There is antegrade flow in the portal vein. There is a right pleural effusion. The common bile duct measures less than 5 mm. The gallbladder is clear and nontender. The right kidney is without evidence of hydronephrosis or mass. IMPRESSION: No evidence of acute disease. Electronically signed by Daniel Yeung 05/27/2019 3:18 PM
[2019-05-27] MEDS ORDERED: ZOFRAN IV PRN (15:21)
[2019-05-27 15:23] LABS: BLOOD TYPE ARTERIAL; SAMPLE BLOOD
[2019-05-27 15:25] LABS: ALLEN TEST YES; BE -1.1 mmoll (-3.0-3.0); HCO3-(ACT) 24.1 mmoll (20.0-26.0); METHB 1.1 % (0.0-1.5); MODALITY BI PAP; O2(CT) 16.1 mL/dL (15.0-23.0); O2HB 96.4 % (95.0-99.0); PCO2(98.6) 38 mmHg (35-45); PO2(98.6) 88 mmHg (60-100); SAO2 98.4 % (95.0-100.0); SRATE 12 BPM; THB 11.8 g/dL (11.5-17.4)
[2019-05-27 15:28] LABS: LARGE PLATELETS 3+; LYMPHS 25 % (21-51); MONO 5 % (1-9); SEGS 70 % (42-75)
[2019-05-27] MEDS ORDERED: ATROVENT NEB INH SCH (16:00)
[2019-05-27] MEDS ORDERED: XOPENEX NEB INH SCH (16:00)
[2019-05-27] MEDS: XOPENEX NEB INH SCH ×2 (16:11→21:38)
[2019-05-27] MEDS: ATROVENT NEB INH SCH ×2 (16:11→21:38)
[2019-05-27] MEDS ORDERED: ZITHROMAX 500 MG/NS 500 MG/250 ML IVPB IV SCH (16:30)
[2019-05-27] MEDS: SODIUM CHLORIDE 0.9% INJ SCH (17:37)
[2019-05-27] MEDS: LASIX IV SCH (17:37)
[2019-05-27] MEDS: PROTONIX IV SCH (17:37)
[2019-05-27] MEDS: FLAGYL 500 MG/NS 500 MG/100 ML IVPB IV SCH ×2 (17:38→23:29)
[2019-05-27] MEDS ORDERED: LASIX IV SCH ×2 (18:00→23:00)
[2019-05-27 19:00] LABS: INR 1.16
[2019-05-27 19:05] LABS: RETIC% 0.23 % (0.8-2.1); RETIC-HE 26.1 PG (28.2-36.6)
[2019-05-27 19:39] LABS: URINE SOURCE CATH
[2019-05-27 19:41] LABS: BILIRUBIN URINE NEGATIVE (NEGATIVE); BLOOD URINE MODERATE (NEGATIVE); COLOR YELLOW; GLUCOSE URINE NEGATIVE (NEGATIVE); KETONE URINE TRACE mg/dL (NEGATIVE); LEUKOCYTES URINE NEGATIVE (NEGATIVE); NITRITE URINE NEGATIVE (NEGATIVE); PROTEIN URINE 50 mg/dL (NEGATIVE); SP GRAVITY URINE 1.013; TURBIDITY URINE CLEAR (CLEAR); UR EPITHELIAL CELLS <10 /HPF (<10); URINE BACTERIA NEGATIVE /HPF; URINE RBC TNTC /HPF (<10); URINE WBC <10 /HPF (<10); UROBILINOGEN URINE NORMAL (NORMAL)
--- NOTE | 2019-05-27 20:15 | Diag Imaging Result Doc PS360 ---
EXAM: ABDOMEN FLAT/UPRIGHT 05/27/2019 HISTORY: MD request TECHNIQUE: Flat and upright abdomen COMMENT: There is colonic gas including the rectum. The stomach is not distended. The small bowel is not distended. There is no evidence of organomegaly or mass. There is apparent gas within the urinary bladder. There continues to be diffuse alveolar opacity in the lungs. This was also demonstrated at 1013. IMPRESSION: Nonspecific colonic gas pattern. Gas in the urinary bladder which may be due to cystitis. Pulmonary edema. Electronically signed by Daniel Yeung 05/27/2019 8:13 PM
[2019-05-27] MEDS: PRAVACHOL PO SCH (20:40)
[2019-05-27] MEDS ORDERED: NS 500 ML ONE (20:44)
[2019-05-28 00:11] LABS: ALLEN TEST YES; BE 0.8 mmoll (-3.0-3.0); BLOOD TYPE ARTERIAL; HCO3-(ACT) 25.5 mmoll (20.0-26.0); O2(CT) 15.3 mL/dL (15.0-23.0); O2HB 96.3 % (95.0-99.0); PCO2(98.6) 43 mmHg (35-45); PO2(98.6) 90 mmHg (60-100); SAMPLE BLOOD; SAO2 98.5 % (95.0-100.0); THB 11.2 g/dL (11.5-17.4); pH(98.6) 7.39 (7.35-7.45)
[2019-05-28 00:12] LABS: MODALITY BI PAP
[2019-05-28] MEDS ORDERED: HALDOL IV PRN (00:22)
[2019-05-28] MEDS: OXYCONTIN PO SCH (01:17)
[2019-05-28] MEDS ORDERED: MAXIPIME 2 GM/NS 2 GM/100 ML IVPB IV SCH (03:00)
[2019-05-28] MEDS: TYLENOL PO PRN (03:17)
[2019-05-28] MEDS: PROTONIX IV SCH ×2 (03:22→14:41)
[2019-05-28 04:46] LABS: ALLEN TEST YES; BE 0.3 mmoll (-3.0-3.0); BLOOD TYPE ARTERIAL; HCO3-(ACT) 25.2 mmoll (20.0-26.0); MODALITY BI PAP; O2(CT) 18.4 mL/dL (15.0-23.0); PCO2(98.6) 42 mmHg (35-45); PO2(98.6) 110 mmHg (60-100); SAMPLE BLOOD; SAO2 99.3 % (95.0-100.0); THB 13.4 g/dL (11.5-17.4); pH(98.6) 7.39 (7.35-7.45)
[2019-05-28 05:43] LABS: AGAP 14; ALBUMIN 3.1 g/dL (3.5-5.0); BUN 33 mg/dL (8-22); CALCIUM 7.1 mg/dL (8.8-10.2); CHLORIDE 109 mmol/L (98-107); COSMO 299; CREATININE 1.1 mg/dL (0.7-1.2); ESTIMATED GFR > 60; GLUCOSE 82 mg/dL (70-104); PHOSPHORUS 3.6 mg/dL (2.7-4.5); POTASSIUM 3.8 mmol/L (3.5-5.1); SODIUM 147 mmol/L (136-145); TCO2 24 mmol/L (25-35)
[2019-05-28] MEDS: LASIX IV SCH ×2 (06:19→17:26)
[2019-05-28] MEDS: FLAGYL 500 MG/NS 500 MG/100 ML IVPB IV SCH (06:19)
[2019-05-28 07:24] LABS: BASO# 0.02 X1000 (0.0-0.2); BASO% 4.4 % (0.0-0.8); HEMATOCRIT 33.5 % (42.0-52.0); HEMOGLOBIN 10.7 g/dL (14.0-18.0); LYMPH# 0.07 X1000 (1.2-3.4); LYMPH% 15.6 % (20.5-51.1); MCH 26.2 PG (27-31); MCHC 31.9 g/dL (33-37); MCV 82.1 FL (81-99); MONO# 0.04 X1000 (0.11-0.59); MONO% 8.9 % (1.7-9.3); MPV 12.8 FL (7.4-10.4); NEUT# 0.32 X1000 (1.4-6.5); NEUT% 71.1 % (42.2-75.2); PLT 35 X1000 (130-400); RBC 4.08 XMIL (4.7-6.1); RDW 12.9 % (11.5-14.5); WBC 0.45 X1000 (4.8-10.8)
[2019-05-28 08:14] LABS: AMYLASE 118 U/L (20-200); LIPASE 159 U/L (13-60)
[2019-05-28 08:19] LABS: LYMPHS 25 % (21-51); MONO 10 % (1-9); SEGS 60 % (42-75)
[2019-05-28] MEDS ORDERED: VERSED ONE (08:32)
[2019-05-28] MEDS ORDERED: AMIDATE ONE (08:32)
[2019-05-28] MEDS ORDERED: NORCURON ONE (08:32)
--- NOTE | 2019-05-28 08:32 | PROGRESS NOTE ---
DATE: 05/28/2019 INTERVAL HISTORY: He continues to require high FiO2 on BiPAP, and when they tried to decrease his FiO2, he would become hypoxic. He continues to remain tachypneic. SUBJECTIVE: He states he is feeling congested in the chest and short of breath. He is also breathing at a rate of 40 per minute. OBJECTIVE: Vital Signs: Currently, temperature of 99.7 degrees, pulse of 96, respiratory rate 37, blood pressure 125/96, he is saturating 92% on 90% FiO2 BiPAP. Lungs: He had decreased air entry with inspiratory crackles in bilateral lung mittal. Heart: S1, S2 normal. Tachycardic. No murmur, rub, or gallop. Abdomen: Soft, nontender. Active bowel sounds. Extremities: No lower extremity edema. Input and output suggest -4 L so far. LABORATORY DATA: Labs suggestive of worsening leukopenia, neutropenia, thrombocytopenia, which is persistent after 1 unit of platelets. ABG suggestive of PO2 of 110 on 100% FiO2. He has hypernatremia, hyperchloremia, elevated carbon dioxide in the setting of volume contraction. He also has hematuria. Stool occult blood test is positive. MICROBIOLOGY: Blood cultures are in lab. Stool had some WBCs. IMAGING: No chest x-ray today. Chest x-ray done yesterday had florid pulmonary edema. I will follow up with portable chest x-ray. He is on 1-to-1 suicide precautions at the moment. He has a urine catheter. ASSESSMENT AND PLAN: 1. Acute hypoxic respiratory failure due to acute flash pulmonary edema and suspected multifocal pneumonia. Continue bilevel positive airway pressure. Follow up chest x-ray. Continue intravenous Lasix. Follow up echocardiogram. He is probably moving towards intubation. I will appreciate Pulmonology recommendations. 2. Neutropenia, neutropenic fever, sepsis due to suspected bilateral lung pneumonia versus colitis based on diarrhea on presentation. Follow up CT scan of the abdomen and pelvis when he is hemodynamically stable. Follow up stool studies. Clostridium difficile toxin was negative. Continue intravenous cefepime, intravenous metronidazole, intravenous azithromycin. Follow up final culture data. 3. Pancytopenia, including thrombocytopenia, status post 1 unit of platelets. I will continue to monitor CBC. This could be in the setting of sepsis. I will appreciate Hematology recommendation. His disseminated intravascular coagulation workup was unremarkable. 4. Overdose with ibuprofen, opioids, muscle relaxants on presentation, intentional. I will continue suicide precaution with 1-to-1 observation. 5. Others. He has history of hemochromatosis, currently managed conservatively; psoriasis, on monoclonal antibody. 6. Disposition. His condition is critical. More than 30 minutes of critical care time were spent taking care of this patient. Plan of care was extensively discussed with the night nurse as well as the morning nurse. All of their questions have been answered. cc: Jose Newberry MD
[2019-05-28] MEDS ORDERED: QUELICIN ONE (08:33)
[2019-05-28] MEDS ORDERED: DIPRIVAN 1% 1,000 MG/100 ML BOTTLE ONE (08:34)
[2019-05-28] MEDS ORDERED: AMIDATE IV ONE (08:39)
[2019-05-28] MEDS ORDERED: QUELICIN IV ONE (08:39)
[2019-05-28] MEDS ORDERED: DIPRIVAN 1% 1,000 MG/100 ML BOTTLE IV SCH (08:45)
--- NOTE | 2019-05-28 09:12 | Diag Imaging Result Doc PS360 ---
EXAM: CHEST-PORTABLE 05/28/2019 HISTORY: intubation TECHNIQUE: AP portable at 0900 COMMENT: There is diffuse alveolar opacity in both lungs. There is an endotracheal tube with its tip at thoracic inlet. Compared to the previous study of 05/27/2019 the alveolar opacities are slightly worse. IMPRESSION: Slightly worsened pulmonary edema. Electronically signed by Daniel Yeung 05/28/2019 9:09 AM
[2019-05-28 09:24] LABS: ALLEN TEST YES; BE 1.1 mmoll (-3.0-3.0); BLOOD TYPE ARTERIAL; HCO3-(ACT) 25.7 mmoll (20.0-26.0); METHB 0.4 % (0.0-1.5); O2(CT) 14.8 mL/dL (15.0-23.0); O2HB 91.4 % (95.0-99.0); PCO2(98.6) 45 mmHg (35-45); PO2(98.6) 56 mmHg (60-100); SAMPLE BLOOD; SAO2 94.1 % (95.0-100.0); SRATE 16 BPM; THB 11.5 g/dL (11.5-17.4); TVOL 600 mL; pH(98.6) 7.38 (7.35-7.45)
[2019-05-28 09:25] LABS: MODALITY VENTILATOR
[2019-05-28] MEDS: EFFEXOR XR PO SCH (10:21)
--- NOTE | 2019-05-28 10:53 | PROVIDER PROGRESS NOTE ---
Progress Note Pulmonary additional note: Full consult dictation to follow I have seen the case, reviewed the EMR, labs, latest images and other medical teams notes. Also reviewed the FRONT DESK HOST notes and signed necessary form(s). I have noted changes in condition if any from yesterday and did orders. Please see also signed progress sheet. Prognosis: Guarded for now. Since yesterday, I discussed condition with Dr. Newberry. He eventually failed Bipap and needed AC. I asked nurse to increase PEEP to 10 cm and change diprivan to ativan given low blood pressure reported over phone. ARDS, pneumonia resp. failure and pancytopenia. Part of this maybe related to immunomodulaters including cherie. Hematology consulted I reviewed notes from Dr. Newberry. The case and details and prognosis was discussed with . I asked staff developer about condition changes and if they have any needs in regard to today conditions. I spent 32 minutes in this process.
[2019-05-28] MEDS: ATIVAN 20 MG in NS 190 ML IV SCH ×4 (11:24→21:39)
[2019-05-28] MEDS: ATROVENT NEB INH SCH ×3 (11:26→21:53)
[2019-05-28] MEDS: XOPENEX NEB INH SCH ×3 (11:26→21:53)
[2019-05-28] MEDS ORDERED: GRANIX SUBQ ONE (12:07)
[2019-05-28] MEDS ORDERED: VANCOMYCIN IV PER PHARMACY MISC SCH (12:15)
[2019-05-28] MEDS: MORPHINE IV PRN (12:31)
--- NOTE | 2019-05-28 12:34 | HEMO/ONC CONSULTATION ---
DATE: 05/28/2019 REASON FOR CONSULTATION: Pancytopenia. HISTORY OF PRESENT ILLNESS: Mr. Chairez is a 39-year-old, male who came to the ER after an overdose of a muscle relaxer, prednisone, oxycodone, and ibuprofen on the night of 05/23/2019. The patient has a history of doing this last July and being admitted at that time as well. The patient did receive 2 doses of Narcan at [facility] where he originally presented and he was discharged there. He was brought to [facility] as he continued to have nausea, vomiting, headache, and abdominal pain. The patient was admitted for further observation and was found to have an elevated creatinine and other lab abnormalities. The patient has since been moved to the ICU where he has leukopenia, neutropenia, thrombocytopenia, and anemia. The patient has been to our office one time for a history of hemochromatosis on 12/16/17. He has not followed up. PAST MEDICAL HISTORY: Psoriatic arthritis, hemochromatosis, anxiety, depression, suicidal attempt history, and hepatic steatosis. PAST SURGICAL HISTORY: None. SOCIAL HISTORY: The patient quit alcohol use in July of 2018 after rehab stay. He began smoking 1 pack a day at that time, as well as chewing tobacco. He denies any illicit drug use. ALLERGIES: He has no known drug allergies. HOME MEDICATIONS: Diclofenac, hydroxyzine, oxycodone, pravastatin, prazosin, Cosentyx, and venlafaxine ER. REVIEW OF SYSTEMS: The patient is currently intubated. He does appear to be in no acute distress. Unable to obtain true ROS. PHYSICAL EXAMINATION: Vital Signs: Temperature 99.7 degrees, T-max over the last 24 hours is 101.6, pulse rate 103, respiratory rate 16, blood pressure 125/86, O2 saturation 100% on mechanical ventilation, 0/10 pain. Patient is sedated. The patient appears restless. He is moving around despite being on a Diprivan drip. Inspiratory crackles noted. Difficult to hear breath sounds over mechanical ventilation. Cardiovascular: Normal S1, S2. He is tachycardic. No murmurs noted. Abdomen: Soft, nontender. Extremities: No lower extremity edema noted. HEENT: Sclerae are anicteric. Oral mucosa is dry. LABORATORY DATA: WBC 0.45, hemoglobin 10.7, hematocrit 33.5, platelet count 35,000, ANC 0.32. Sodium 147, creatinine 1.1, albumin 3.1. Lipase 159, amylase 118. Positive occult stool. RADIOLOGY: Chest x-ray shows slightly worsened pulmonary edema. Abdominal x- ray, nonspecific gas pattern, gas in the urinary bladder which may be due to cystitis and pulmonary edema. Abdominal ultrasound revealed no acute abnormalities. The patient was currently getting a cardiac echo at the time of my evaluation. ASSESSMENT AND PLAN: 1. Acute hypoxic respiratory failure due to acute flash pulmonary edema and suspected multifocal pneumonia. The patient is on mechanical ventilation at this time. Continue followup with pulmonology. Continue management per hospitalist. 2. Neutropenia and neutropenic fever, most likely due to sepsis, suspected bilateral lung pneumonia versus colitis based on severe diarrhea. Continue intravenous antibiotics. We are going to provide 1 dose of Neupogen. It is very probable that the neutropenia is from drug toxicity. 3. Thrombocytopenia. The patient is status post one unit of platelets. We will continue to monitor. Transfuse him with another unit of platelets for a platelet count of less than 20,000 or if the patient is bleeding. 4. Anemia. We will continue to monitor his numbers. 5. Overdose. Continue management per hospitalist. Continue suicide precautions. 6. Hemochromatosis. This patient is a known patient to us for hemochromatosis. He has not been seen in the clinic for well over a year. We have not managed his hemochromatosis in that amount of time. We will continue to monitor the patient closely. Dictated by CHRISTIAN Ledesma for Gerald Shin MD Patient seen and examined. As above. Patient admitted with drug overdose, currently intubated in the ICU. We have been consulted for pancytopenia. This is due to his drug overdose. We will continue to support from a hematology standpoint. Continue current management per hospitalist, ID and pulmonology. Gerald Shin M.D. cc: MD Jose Alcantar MD MTDD
[2019-05-28] MEDS: OFIRMEV 1000 MG/ISOTONIC SOLN 1,000 MG/100 ML BOTTLE IV PRN ×2 (13:10→19:30)
[2019-05-28] MEDS ORDERED: VANCOMYCIN 2,250 MG in NS 500 ML IV ONE (14:00)
[2019-05-28] MEDS: SODIUM CHLORIDE 0.9% INJ SCH (14:41)
--- NOTE | 2019-05-28 14:47 | ECHO REPORT ---
ORDER DATE: 05/27/2019 INDICATION: CHF. FINDINGS: 1. The right atrium appears normal in size at 3 cm. 2. Mild tricuspid regurgitation. RV systolic pressure of 37. 3. Normal RV size and systolic function. 4. Trace pulmonic insufficiency. 5. Normal left atrial size with a dimension of 3 cm, volume index of 20. 6. No mitral valve prolapse. Mild mitral regurgitation. No mitral stenosis. 7. Normal LV size, end-diastolic dimension of 4.8 cm. Normal wall thicknesses with a posterior and interventricular septal wall thickness of 0.9 and 0.8 cm respectively. Borderline normal- to-normal LV systolic function with an estimated EF of 50% to 55% with normal wall motion. 8. The aortic valve opens well. No evidence of stenosis or insufficiency. 9. The aorta appears normal on visualized segments. 10. No pericardial effusion seen. cc: MD Aaron Escamilla MD Siddharth Patel, MD
--- NOTE | 2019-05-28 15:18 | CONSULTATION ---
DATE OF CONSULTATION: 05/28/2019 CHIEF COMPLAINT: Respiratory failure. HISTORY OF PRESENT ILLNESS: This is a 39-year-old male with a history of depression, anxiety, psoriatic arthritis and hemochromatosis. Mr. Chairez was brought to the ER after an apparent overdose on muscle relaxers, prednisone, oxycodone and ibuprofen. Recent chest x-ray reveals worsened pulmonary edema and alveolar opacities. PAST MEDICAL HISTORY: As mentioned in the HPI. PAST SURGICAL HISTORY: None. FAMILY HISTORY: Mom's side with basal cell carcinoma, PR and hypertension. His sister is with thyroid cancer. Father had diabetes. SOCIAL HISTORY: Currently lives with his . Smokes 1 pack of cigarettes per day and has done so since 07/2018. Dips tobacco occasionally. No alcohol use since 07/2018. Denies illicit drug use. ALLERGIES: No known drug allergies. HOME MEDICATIONS: Diclofenac 75 mg p.o. b.i.d., hydroxyzine 50 mg p.o. t.i.d., oxycodone 10 mg p.o. b.i.d., pravastatin 10 mg p.o. at bedtime, prazosin 3 mg p.o. at bedtime, Cosentyx pen subcutaneously every 30 days and will be held, and venlafaxine 150 mg p.o. daily. DIAGNOSTIC DATA: Imaging: Chest x-ray mentioned in HPI. Renal ultrasound which was negative. LABORATORY DATA: White blood cells 0.45, red blood cells 4.08, hemoglobin 10.7, hematocrit 33.5. PT is 15.0. INR of 1.16. PTT is 31.0. Fibrinogen 603.0. D-dimer quantitative 4.84. The pH is 7.38, pCO2 of 45, pO2 of 56, HCO3 is 25.7, oxyhemoglobin 91.4. Sodium is 147, potassium 3.8, chloride 109, carbon dioxide 24, BUN is 33, creatinine 1.1, glucose 82, calcium 7.1. Ferritin is 8941. Albumin 3.1. Occult stool blood positive. REVIEW OF SYSTEMS: A 10-point review of systems was obtained, and the pertinent is listed in the HPI, otherwise noncontributory. ASSESSMENT AND PLAN: 1. Acute hypoxic respiratory failure, failed BiPAP, requiring ventilatory support. We will continue to monitor ABGs. 2. Acute respiratory distress and pneumonia. Continue IV antibiotics and bronchodilators as prescribed. 3. Pancytopenia. Part of this may be related to immune modulators including Humira. Hematology is consulted. 4. Continue GI prophylaxis with 40 mg of Protonix IV as scheduled. Thank you for the courtesy of this consult. Dictated by CHRISTIAN Ng for Mindi Nance MD cc: CHRISTIAN Ng MD Siddharth Patel, MD
--- NOTE | 2019-05-28 15:28 | INFECTIOUS DISEASE CONSULT REP ---
DATE: 05/28/2019 CONCLUSION: The patient is admitted to the intensive care unit. He has overdosed. He has bilateral pulmonary venous congestion, which could possibly be due to infection. He also has pancytopenia. RECOMMENDATIONS: I have discontinued azithromycin, cefepime and Flagyl and instead I have started the patient on meropenem. The patient already is on vancomycin and micafungin. DISCUSSION: The patient is intubated. Information I obtained was from the patient's and also from the computer. The said that previously he had tried to commit suicide and he tried again now and he overdosed on a muscle relaxer, prednisone, oxycodone, and ibuprofen. He initially was seen at [facility] and given Narcan. He was discharged home. The patient was having nausea, vomiting, headache, abdominal pain and he was presented to the emergency room at [facility]. He is in ICU and has been intubated. The patient also has become pancytopenic. The patient's CBC shows a white count of 450, hemoglobin 10.7, and platelet count 35,000. Liver function studies were normal. Blood gases showed a pH of 7.38, a PO2 of 56 and a pCO2 of 45. Creatinine is 1.1. GFR is greater than 60. CK was 1591. Urinalysis was negative for white cells and bacteria. Drug screen was positive for oxycodone. Blood cultures are pending. Stool for ova and parasite are pending. Chest x-ray shows worsening diffuse alveolar opacities. Abdominal ultrasound showed no acute disease. Renal ultrasound also showed no acute disease. Stools have been sent for culture, as well as Clostridium difficile because the patient was having diarrhea at home. PAST MEDICAL HISTORY: Positive for psoriatic arthritis, hemochromatosis, anxiety, depression, and hepatic steatosis. PAST SURGICAL HISTORY: None. FAMILY HISTORY: Possible for basal cell carcinoma, myocardial infarction, hypertension, thyroid cancer, and diabetes. SOCIAL HISTORY: The patient lives with his . He smokes cigarettes but he does not drink he also dips tobacco occasionally. He does not he has not had alcohol since July 2018 and the patient denied having any illicit drug use. ALLERGIES: The patient has no known drug allergies. MEDICATIONS: Taken at home include diclofenac, hydroxyzine, oxycodone, pravastatin, prazosin, cosentyx, and venlafaxine. PHYSICAL EXAMINATION: Vital Signs: Earlier the patient's temperature was 103 degrees now it is 100. Pulse is 103, respirations 16, blood pressure is 125/86. The patient is 5 feet 11 inches tall, weighs 168 pounds. General: This is a fairly healthy-appearing young male. He is intubated and sedated. Head/eyes/ears/nose/throat: As mentioned above the patient is intubated. He has an orotracheal tube in place. No drainage noted from the nose or the ears. Neck: No apparent pain or stiffness with passive movement. Lungs: Clear to auscultation. Cardiovascular: Heart rate is regular. Abdomen: Soft and nontender. Integument: No rash is noted. Neurologic: The patient is obtunded. He did not respond to verbal stimuli. He does not have a tremor. Thank you for the consult. cc: MD Jose Negron MD [facility]
[2019-05-28] MEDS: MERREM 2 GM in NS 100 ML IV SCH ×2 (16:12→23:42)
[2019-05-28 16:50] LABS: BASO# 0.01 X1000 (0.0-0.2); BASO% 1.9 % (0.0-0.8); HEMATOCRIT 33.8 % (42.0-52.0); HEMOGLOBIN 10.7 g/dL (14.0-18.0); IMM GRAN# 0.02 X1000 (0.0-0.04); IMM GRAN% 3.8 % (0.0-0.5); LYMPH# 0.12 X1000 (1.2-3.4); LYMPH% 22.6 % (20.5-51.1); MCHC 31.7 g/dL (33-37); MCV 82.2 FL (81-99); MONO# 0.03 X1000 (0.11-0.59); MONO% 5.7 % (1.7-9.3); PLT 23 X1000 (130-400); RBC 4.11 XMIL (4.7-6.1); RDW 13.2 % (11.5-14.5); WBC 0.53 X1000 (4.8-10.8)
[2019-05-28 16:51] LABS: NEUT# 0.35 X1000 (1.4-6.5)
[2019-05-28 17:18] LABS: LARGE PLATELETS 1+; LYMPHS 20 % (21-51); SEGS 80 % (42-75)
[2019-05-28] MEDS: MYCAMINE 100 MG in NS 100 ML IV SCH (17:27)
--- NOTE | 2019-05-28 17:39 | Diag Imaging Result Doc PS360 ---
EXAM: CHEST-PORTABLE 05/28/2019 HISTORY: OG placement TECHNIQUE: AP portable upright at 1732 COMMENT: There is an endotracheal tube with its tip slightly below the thoracic inlet and an NG tube with its tip in the stomach. The lungs are less opacified than on 05/28/2019 and there are better expanded. IMPRESSION: OG tube in the stomach. Electronically signed by Daniel Yeung 05/28/2019 5:36 PM
--- NOTE | 2019-05-28 18:41 | Diag Imaging Result Doc PS360 ---
EXAM: CT ABDOMEN/PELVIS W/O CONTRAST 05/28/2019 HISTORY: Rule out colitis TECHNIQUE: This exam was performed using automated exposure control, adjustment of mA or kV according to patient size, and/or use of iterative reconstruction technique. COMMENT: There are diffuse groundglass and denser alveolar opacities in the lung bases as has been previously demonstrated on plain radiographs. There are bilateral pleural fluid collections more so on the right than the left. There is an NG tube passing through the esophagus with its tip in the stomach. There is fluid in the stomach and duodenum. There is fluid dilatation of the proximal jejunum as well. There is gradual decrease in caliber of the more distal portions of the small bowel. There is fluid throughout the colon as well without evidence of mucosal thickening. There is a lead in the rectum. There is fluid in the rectum. There is a Page catheter in the bladder which is not distended. The appendix is normal in appearance. Compared to the previous study of 11/09/2017 these findings were not present previously. There is a bone island in the right iliac bone just above the acetabulum. There is no evidence of acute bony abnormality. IMPRESSION: Pulmonary edema plus minus pneumonia. Bilateral pleural effusions. Fluid throughout the stomach and and small bowel as well as the colon. The possibility of mild enterocolitis cannot be excluded. Electronically signed by Daniel Yeung 05/28/2019 6:39 PM
[2019-05-28] MEDS: PRAVACHOL PO SCH (20:06)
[2019-05-28 20:23] LABS: HIV ANTIBODY SCREEN SEE COMMENTS
[2019-05-29] MEDS: OFIRMEV 1000 MG/ISOTONIC SOLN 1,000 MG/100 ML BOTTLE IV PRN ×3 (01:08→21:51)
[2019-05-29] MEDS: ATIVAN 20 MG in NS 190 ML IV SCH ×3 (01:08→07:55)
[2019-05-29] MEDS: PROTONIX IV SCH ×2 (03:17→15:09)
[2019-05-29 04:53] LABS: ALLEN TEST YES; BE -1.3 mmoll (-3.0-3.0); BLOOD TYPE ARTERIAL; HCO3-(ACT) 23.9 mmoll (20.0-26.0); METHB 0.5 % (0.0-1.5); O2(CT) 19.1 mL/dL (15.0-23.0); PCO2(98.6) 43 mmHg (35-45); PO2(98.6) 101 mmHg (60-100); SAMPLE BLOOD; SRATE 16 BPM; THB 13.9 g/dL (11.5-17.4); TVOL 600 mL; pH(98.6) 7.36 (7.35-7.45)
[2019-05-29 04:54] LABS: MODALITY VENTILATOR
[2019-05-29 05:18] LABS: BASO# 0.03 X1000 (0.0-0.2); BASO% 1.3 % (0.0-0.8); EOS# 0.05 X1000 (0.0-0.7); EOS% 2.1 % (0.0-10.0); HEMATOCRIT 35.3 % (42.0-52.0); HEMOGLOBIN 11.3 g/dL (14.0-18.0); IMM GRAN# 0.03 X1000 (0.0-0.04); IMM GRAN% 1.3 % (0.0-0.5); LYMPH# 0.18 X1000 (1.2-3.4); LYMPH% 7.6 % (20.5-51.1); MCH 26.3 PG (27-31); MCV 82.1 FL (81-99); MONO# 0.05 X1000 (0.11-0.59); MONO% 2.1 % (1.7-9.3); NEUT# 2.03 X1000 (1.4-6.5); NEUT% 85.6 % (42.2-75.2); RDW 13.6 % (11.5-14.5); WBC 2.37 X1000 (4.8-10.8)
[2019-05-29 05:22] LABS: PLT 22 X1000 (130-400)
[2019-05-29 05:54] LABS: ALBUMIN 2.7 g/dL (3.5-5.0); CALCIUM 7.9 mg/dL (8.8-10.2); CREATININE 1.6 mg/dL (0.7-1.2); MAGNESIUM 2.7 mg/dL (1.5-2.7); PHOSPHORUS 3.4 mg/dL (2.7-4.5); POTASSIUM 3.3 mmol/L (3.5-5.1)
[2019-05-29] MEDS: LASIX IV SCH (05:56)
[2019-05-29 06:42] LABS: BANDS 4 % (0-1); HYPOCHROM 1+; LARGE PLATELETS 1+; LYMPHS 16 % (21-51); SEGS 68 % (42-75)
--- NOTE | 2019-05-29 07:10 | INFECTIOUS DISEASE PROGRESS NO ---
DATE: 05/29/2019 PRESENT ILLNESS: The patient has just been diagnosed with influenza A. He may have also developed a bacterial superinfection in his lungs. MEDICATIONS: The patient had been on meropenem, micafungin, and vancomycin. PHYSICAL EXAMINATION: Vital Signs: Temperature got up to 104 last night, currently it is 100. Pulse 88, respirations 16, blood pressure is 104/71. General: This is an ill-appearing young male. He is in no acute distress. Head/Eyes/Ears/Nose/Throat: The patient has an orotracheal and orogastric tube in place. He does not have any drainage noted from his nose or ears. Neck: No stiffness. Lungs: Clear to auscultation. Cardiovascular: Heart rate is regular. Abdomen: Soft and nontender. Neurologic: The patient is sedated. He did not respond to verbal stimuli. Integument: No rash noted. LAB AND X-RAY: The patient's CBC shows the white count is up to 2370 with an absolute neutrophil count of 2030. The hemoglobin is 11.3, platelet counts are 22,000. The patient's creatinine is up to 1.6, and the GFR is down to 48. HIV antibody is nonreactive. Blood gases show a pH of 7.36, a PO2 of 101, and a pCO2 of 43. Blood cultures are pending. The influenza testing was positive for influenza A. Stool for ova and parasites is negative. Chest x-ray shows a decrease in the lung opacity. ASSESSMENT AND PLAN: The patient has influenza and may have developed also a superimposed pneumonia. The patient has been started on Tamiflu today. I have decreased the meropenem dose to 1 gram IV every 8 hours because of the creatinine being elevated. Also, I have discontinued vancomycin for the same reason, namely that the creatinine is elevated. COMORBIDITIES: The patient has psoriatic arthritis, hemochromatosis, anxiety, depression, and hepatic steatosis. cc: MD Jose Negron MD
[2019-05-29] MEDS: TAMIFLU NG SCH ×3 (07:11→20:20)
[2019-05-29] MEDS: MERREM 1 GM in NS 50 ML IV SCH ×2 (07:14→15:10)
--- NOTE | 2019-05-29 07:26 | Diag Imaging Result Doc PS360 ---
EXAM: CHEST-PORTABLE HISTORY: Vent pt TECHNIQUE: Single view COMPARISON: 05/28/2019 FINDINGS: Endotracheal and nasogastric tubes in good position. There are bilateral infiltrates. No cardiomegaly. No pleural effusions identified. IMPRESSION: Mild interval improvement Electronically signed by Martin Miller 05/29/2019 7:24 AM
[2019-05-29] MEDS ORDERED: MERREM 1 GM in NS 50 ML IV SCH (08:00)
[2019-05-29] MEDS ORDERED: VANCOMYCIN 1,900 MG in NS 500 ML IV SCH (08:00)
[2019-05-29] MEDS: EFFEXOR XR PO SCH (08:11)
[2019-05-29] MEDS: POTASSIUM CHLORIDE 20 MEQ/SWI 20 MEQ/100 ML IVPB IV SCH ×2 (09:31→11:03)
[2019-05-29 09:55] LABS: HEPATITIS PROFILE ACUTE SEE COMMENTS
[2019-05-29] MEDS: ATROVENT NEB INH SCH ×3 (09:59→21:16)
[2019-05-29] MEDS: XOPENEX NEB INH SCH ×3 (09:59→21:16)
--- NOTE | 2019-05-29 10:21 | PROVIDER PROGRESS NOTE ---
Progress Note Pulmonary additional note: Full consult dictation to follow I have seen the case, reviewed the EMR, labs, latest images and other medical teams notes. Also reviewed the GYM MANAGER notes and signed necessary form(s). I have noted changes in condition if any from yesterday and did orders. Please see also signed progress sheet. Prognosis: Guarded for now. Since yesterday, He has improvement in oxygenation on AC. It seems there is a component of pulmonary edema. ARDS, pneumonia, pulmonary edema, resp. failure and pancytopenia. Part of this maybe related to immunomodulaters including cherie. Hematology consulted. I reviewed notes from Dr. Newberry, Dr. Shin and Dr. Pitt. I asked staff radiologist about condition changes and if they have any needs in regard to today conditions. I spent 33 minutes in this process.
[2019-05-29] MEDS: DIPRIVAN 1% 1,000 MG/100 ML BOTTLE IV SCH ×3 (11:25→21:48)
--- NOTE | 2019-05-29 11:28 | PROGRESS NOTE ---
DATE: 05/29/2019 INTERVAL HISTORY: He was intubated. He continues to have high-grade fevers. He was normotensive. His oxygen requirement decreased on the ventilator, and he is on 60% FiO2. He is - 1.5 L. He received a dose of filgrastim, and his blood counts increased after that. He came positive for influenza type A. He developed acute kidney injury. He was started on oseltamivir. SUBJECTIVE: He is intubated, not responsive. His is at bedside. OBJECTIVE: Vital Signs: Temperature of 99.7 degrees, pulse 106, respiratory rate 18, blood pressure 110/79, saturating 95% on mechanical ventilation. HEENT: Pupils are bilaterally equal, reacting to light. No bleeding inside the nose. He has endotracheal tube. Lungs: He has significantly decreased air entry, with inspiratory crackles in bilateral inframammary region. Cardiovascular: S1, S2 normal. Tachycardic. No murmur or gallop. Abdomen: Soft, nontender. Active bowel sounds. Extremities: No lower extremity edema. Genitourinary: He has a urine catheter. Neurologic: He starts flickering to strong verbal stimuli. He is on midazolam drip. SIGNIFICANT IMAGING AND LABORATORY DATA: WBC increased to 2.3, hemoglobin 11.3, platelets 22,000. ABG suggestive of PO2 of 101 over the ventilator. He does have hypernatremia, hypokalemia, and hyperchloremia. He also has acute kidney injury. His proBNP improved from 10,000 to 2800. He does have hypoalbuminemia. His hepatitis and HIV have been negative. Influenza screen positive for influenza type A. Remaining culture data negative so far. Chest x-ray in the morning time suggests mild interval improvement. ASSESSMENT AND PLAN: 1. Acute hypoxic respiratory failure due to acute pulmonary edema and bilateral multifocal pneumonia, status post intubation on 05/28/2019. Continue mechanical ventilation and sedation as per Pulmonology recommendation. Continue intravenous vancomycin, and he has been started on intravenous meropenem as per Infectious Disease. I will keep him on intravenous micafungin and start Oseltamivir as well for sepsis likely leading to pneumonia. 2. Neutropenia, neutropenic fever, and pancytopenia. Sepsis could be a contributing factor. He has influenza type A, and he was immunocompromised, being on monoclonal antibody. Certainly, severe influenza infection superimposed with bacterial sepsis could be contributing factors; he overdosed on nonsteroidal anti-inflammatory drugs and some of the other known medications, which could cause bone marrow suppression. I will continue him on intravenous broad-spectrum antibiotics, intravenous micafungin. Follow final culture data. He is status post filgrastim as per Hematology. 3. Pancytopenia, including thrombocytopenia, status post 1 unit of platelets. Continue to monitor CBC. 4. Overdose with ibuprofen, opioids, muscle relaxants on presentation, which was intentional. Continue suicide precaution once he is extubated. 5. He has history of hemochromatosis, currently managed conservatively; psoriasis on monthly injections with Cosentyx. 6. Disposition. His condition is critical. More than 30 minutes of critical care time were spent in taking care of this patient. I discussed the plan of care with the patient's at bedside. I will continue him on pantoprazole for a positive fecal occult blood test at every 12 hours dosage. I will start chemical anticoagulation in the future once his thrombocytopenia resolves. His tells me that before he took many tablets of his pain pills, he did tell his that he felt he was developing flu. cc: Jose Newberry MD [facility]
[2019-05-29] MEDS: SODIUM CHLORIDE 0.9% INJ SCH (15:09)
[2019-05-29] MEDS: MYCAMINE 100 MG in NS 100 ML IV SCH (16:00)
--- NOTE | 2019-05-29 17:25 | PROVIDER PROGRESS NOTE ---
Progress Note Dr. Nance Progress Note/Pulmonary and or critical care We appreciated progress of care, Complications, change in diagnosis, and instructions to patient under direct supervision of Dr. Nance. Subjective: We note the level of consciousness, bed (chair) position, family presence (if any), level of lethargy, feeling of symptoms, and changes from baseline condition/symptom. The patient has been intubated and sedated since yesterday morning. He is still having fever, currently at 100.9. He is on ativan drip. The is at the bedside. Vital Signs: We reviewed EMR current values for Pulse rate, Blood pressure, Pulse rate, respiratory rate and Pulse oximetry. Also noted other values and trends if present (e.g. I/O, CVP). Vital Signs 05/28/19 17:30 05/28/19 17:45 05/28/19 18:00 Temperature Pulse Rate 120 H 120 H 121 H Respiratory Rate 20 26 H 19 Blood Pressure 110/79 119/78 114/80 O2 Sat by Pulse Oximetry 100 100 100 05/28/19 18:34 05/28/19 18:45 05/28/19 19:00 Temperature Pulse Rate 117 H 118 H 118 H Respiratory Rate 16 19 21 Blood Pressure 122/82 122/81 118/84 O2 Sat by Pulse Oximetry 100 100 100 05/28/19 19:15 05/28/19 19:30 05/28/19 19:45 Temperature Pulse Rate 120 H 121 H 120 H Respiratory Rate 20 21 21 Blood Pressure 118/82 127/82 130/83 O2 Sat by Pulse Oximetry 100 100 100 05/28/19 20:00 05/28/19 20:15 05/28/19 20:30 Temperature 104.0 F H Pulse Rate 119 H 119 H 115 H Respiratory Rate 20 20 20 Blood Pressure 114/76 113/76 112/74 O2 Sat by Pulse Oximetry 100 100 100 05/28/19 20:45 05/28/19 21:00 05/28/19 21:15 Temperature Pulse Rate 111 H 109 H 108 H Respiratory Rate 19 18 18 Blood Pressure 117/71 100/70 102/77 O2 Sat by Pulse Oximetry 100 100 100 05/28/19 21:30 05/28/19 21:45 05/28/19 21:53 Temperature Pulse Rate 107 H 105 H 104 H Respiratory Rate 17 17 14 Blood Pressure 98/67 99/68 O2 Sat by Pulse Oximetry 100 100 100 05/28/19 22:00 05/28/19 22:15 05/28/19 22:30 Temperature Pulse Rate 104 H 113 H 110 H Respiratory Rate 14 17 17 Blood Pressure 97/69 97/65 107/67 O2 Sat by Pulse Oximetry 100 100 100 05/28/19 22:45 05/28/19 23:00 05/28/19 23:15 Temperature Pulse Rate 110 H 110 H 110 H Respiratory Rate 17 18 18 Blood Pressure 102/70 95/68 105/65 O2 Sat by Pulse Oximetry 100 100 100 05/28/19 23:30 05/28/19 23:45 05/29/19 00:00 Temperature Pulse Rate 109 H 106 H 108 H Respiratory Rate 17 17 17 Blood Pressure 95/69 100/73 99/72 O2 Sat by Pulse Oximetry 98 98 100 05/29/19 00:15 05/29/19 00:30 05/29/19 00:45 Temperature Pulse Rate 107 H 107 H 105 H Respiratory Rate 16 16 16 Blood Pressure 103/71 101/69 101/72 O2 Sat by Pulse Oximetry 99 99 96 05/29/19 01:00 05/29/19 01:15 05/29/19 01:30 Temperature Pulse Rate 107 H 106 H 105 H Respiratory Rate 16 16 16 Blood Pressure 106/72 101/76 103/70 O2 Sat by Pulse Oximetry 96 97 97 05/29/19 01:45 05/29/19 02:00 05/29/19 02:15 Temperature Pulse Rate 104 H 103 H 101 H Respiratory Rate 16 16 16 Blood Pressure 99/72 101/69 101/66 O2 Sat by Pulse Oximetry 97 98 98 05/29/19 02:30 05/29/19 02:45 05/29/19 03:00 Temperature Pulse Rate 97 H 97 H 94 H Respiratory Rate 16 16 16 Blood Pressure 101/67 90/65 99/66 O2 Sat by Pulse Oximetry 98 98 98 05/29/19 03:15 05/29/19 03:30 05/29/19 03:45 Temperature 100.0 F H Pulse Rate 91 H 92 H 92 H Respiratory Rate 16 16 16 Blood Pressure 89/62 89/69 96/71 O2 Sat by Pulse Oximetry 98 98 98 05/29/19 04:00 05/29/19 04:15 05/29/19 04:30 Temperature Pulse Rate 90 91 H Respiratory Rate 16 16 Blood Pressure 95/65 100/71 95/63 O2 Sat by Pulse Oximetry 98 91 L 93 L 05/29/19 04:45 05/29/19 05:00 05/29/19 05:15 Temperature Pulse Rate 87 90 88 Respiratory Rate 16 16 16 Blood Pressure 94/67 90/63 90/63 O2 Sat by Pulse Oximetry 95 93 L 94 L 05/29/19 05:17 05/29/19 05:30 05/29/19 05:45 Temperature Pulse Rate 88 89 86 Respiratory Rate 16 16 16 Blood Pressure 90/63 98/66 103/70 O2 Sat by Pulse Oximetry 93 L 94 L 91 L 05/29/19 06:00 05/29/19 06:15 05/29/19 06:30 Temperature Pulse Rate 88 91 H 90 Respiratory Rate 16 16 16 Blood Pressure 104/71 100/72 103/70 O2 Sat by Pulse Oximetry 94 L 95 96 05/29/19 06:45 05/29/19 07:00 05/29/19 07:15 Temperature Pulse Rate 92 H 92 H 91 H Respiratory Rate 16 16 16 Blood Pressure 98/72 96/72 109/74 O2 Sat by Pulse Oximetry 96 97 96 05/29/19 07:30 05/29/19 07:45 05/29/19 08:00 Temperature 99.7 F H Pulse Rate 94 H 97 H 98 H Respiratory Rate 16 16 16 Blood Pressure 106/80 109/77 104/78 O2 Sat by Pulse Oximetry 96 96 96 05/29/19 08:15 05/29/19 08:30 05/29/19 08:45 Temperature Pulse Rate 98 H 101 H 100 H Respiratory Rate 16 16 16 Blood Pressure 110/81 103/75 107/77 O2 Sat by Pulse Oximetry 96 97 97 05/29/19 09:00 05/29/19 09:15 05/29/19 09:30 Temperature Pulse Rate 105 H 103 H 103 H Respiratory Rate 20 18 18 Blood Pressure 108/78 110/79 108/79 O2 Sat by Pulse Oximetry 96 95 96 05/29/19 09:45 05/29/19 10:00 05/29/19 10:01 Temperature Pulse Rate 107 H 100 H 100 H Respiratory Rate 20 16 16 Blood Pressure 117/80 100/74 O2 Sat by Pulse Oximetry 95 100 95 05/29/19 10:15 05/29/19 10:30 05/29/19 10:45 Temperature Pulse Rate 107 H 108 H 109 H Respiratory Rate 16 19 20 Blood Pressure 105/78 115/77 116/78 O2 Sat by Pulse Oximetry 94 L 96 95 05/29/19 11:00 05/29/19 11:15 05/29/19 11:30 Temperature Pulse Rate 124 H 121 H 116 H Respiratory Rate 21 21 21 Blood Pressure 109/78 113/78 120/79 O2 Sat by Pulse Oximetry 96 95 94 L 05/29/19 11:45 05/29/19 12:00 05/29/19 12:15 Temperature 101.1 F H Pulse Rate 116 H 112 H 108 H Respiratory Rate 18 16 16 Blood Pressure 102/73 99/70 91/62 O2 Sat by Pulse Oximetry 94 L 94 L 94 L 05/29/19 12:30 05/29/19 12:45 05/29/19 13:00 Temperature Pulse Rate 105 H 104 H 102 H Respiratory Rate 16 16 16 Blood Pressure 88/54 86/67 81/63 O2 Sat by Pulse Oximetry 93 L 94 L 94 L 05/29/19 13:15 05/29/19 13:30 05/29/19 13:45 Temperature Pulse Rate 100 H 100 H 97 H Respiratory Rate 16 16 16 Blood Pressure 86/53 83/54 85/68 O2 Sat by Pulse Oximetry 94 L 93 L 93 L 05/29/19 14:00 05/29/19 14:15 05/29/19 14:30 Temperature Pulse Rate 96 H 96 H 96 H Respiratory Rate 16 16 16 Blood Pressure 91/54 89/59 81/59 O2 Sat by Pulse Oximetry 93 L 94 L 94 L 05/29/19 14:45 05/29/19 15:00 05/29/19 15:15 Temperature Pulse Rate 94 H 91 H 91 H Respiratory Rate 16 16 16 Blood Pressure 85/58 83/57 81/54 O2 Sat by Pulse Oximetry 94 L 94 L 93 L 05/29/19 15:30 05/29/19 15:45 05/29/19 16:00 Temperature 99.3 F Pulse Rate 93 H 94 H 97 H Respiratory Rate 16 16 16 Blood Pressure 88/53 81/57 84/46 O2 Sat by Pulse Oximetry 94 L 94 L 95 05/29/19 16:15 05/29/19 16:36 05/29/19 16:45 Temperature Pulse Rate 106 H 108 H 108 H Respiratory Rate 16 16 16 Blood Pressure 83/51 75/52 76/49 O2 Sat by Pulse Oximetry 90 L 94 L 94 L 05/29/19 17:00 Temperature Pulse Rate 105 H Respiratory Rate 16 Blood Pressure 73/52 O2 Sat by Pulse Oximetry 94 L Intake & Output 05/28/19 05/29/19 05/29/19 19:59 07:59 19:59 Intake Total 344 / 2204 1860 / 2204 543 / 543 Output Total 1650 / 3750 2100 / 3750 1475 / 1475 Balance -1306 / -1546 -240 / -1546 -932 / -932 Intake: Intake, IVPB 100 / 1000 900 / 1000 50 / 50 Intake, IV Electrolyte Infusion 200 / 200 Intake, IV Ativan Drip 170 / 1130 960 / 1130 220 / 220 Intake, IV Diprivan 74 / 74 73 / 73 Output: Output, Urine Page Amount 1650 / 3550 1900 / 3550 1375 / 1375 Output, NG Tube 200 / 200 100 / 100 Other: Number of Bowel Movements 1 1 Bowel Movement Color and Liquid Liquid Character Green Objective: We examined the following systems General and HEENT: Trachea Midline. ETT in Place Chest: Diminished breathing sounds b/l; inspiratory crackles basilarly. CVS: S1 and S2 noted; sinus tachycardia. Abdomen: Soft, nondistended. normoactive BS in all 4 quadrants. Extremities: no pedal edema. Neuro: Sedated. Labs and Radiology: Reviewed available labs and radiology values available at time of EMR review. Laboratory Results 05/27/19 05/27/19 05/28/19 16:55 17:57 04:50 WBC RBC Hgb Hct MCV MCH MCHC RDW Std Deviation Plt Count MPV Immature Gran % (Auto) Neut % (Auto) Lymph % (Auto) [place] % (Auto) Eos % (Auto) Baso % (Auto) Immature Gran # (Auto) Neut # (Auto) Lymph # (Auto) [place] # (Auto) Eos # (Auto) Baso # (Auto) Segmented Neutrophils Band Neutrophils Lymphocytes Metamyelocytes Myelocytes Hypochromia Large Platelets Haptoglobin SEE COMMENTS Specimen Type Sample Site pH pCO2 pO2 HCO3 Base Excess Oxyhemoglobin ABG O2 Sat (Calculated) ABG O2 Saturation ABG Carboxyhemoglobin ABG Methemoglobin Luis Test A-a O2 Difference Total Hemoglobin Lactate Blood Gas Modality Vent Mode Spontaneous Rate FiO2 % Tidal Volume PEEP Sodium Potassium Chloride Carbon Dioxide Anion Gap BUN Creatinine Estimated GFR/1.73 m2 BUN/Creatinine Ratio Glucose Calculated Osmolality Calcium Phosphorus Magnesium Wbq-L-Jhyajlixqjr Pept Albumin Hepatitis Panel SEE COMMENTS HIV 1&2 Antibody Screen SEE COMMENTS 05/29/19 05/29/19 05/29/19 04:16 04:16 04:16 WBC 2.37 L D RBC 4.30 L Hgb 11.3 L Hct 35.3 L MCV 82.1 MCH 26.3 L MCHC 32.0 L RDW Std Deviation 13.6 Plt Count 22 L* MPV Not Reportable Immature Gran % (Auto) 1.3 H Neut % (Auto) 85.6 H Lymph % (Auto) 7.6 L [place] % (Auto) 2.1 Eos % (Auto) 2.1 Baso % (Auto) 1.3 H Immature Gran # (Auto) 0.03 Neut # (Auto) 2.03 Lymph # (Auto) 0.18 L [place] # (Auto) 0.05 L Eos # (Auto) 0.05 Baso # (Auto) 0.03 Segmented Neutrophils 68 Band Neutrophils 4 H Lymphocytes 16 L Metamyelocytes 4.0 Myelocytes 8.0 Hypochromia 1+ Large Platelets 1+ Haptoglobin Specimen Type Sample Site pH pCO2 pO2 HCO3 Base Excess Oxyhemoglobin ABG O2 Sat (Calculated) ABG O2 Saturation ABG Carboxyhemoglobin ABG Methemoglobin Luis Test A-a O2 Difference Total Hemoglobin Lactate Blood Gas Modality Vent Mode Spontaneous Rate FiO2 % Tidal Volume PEEP Sodium 154 H Potassium 3.3 L Chloride 114 H Carbon Dioxide 22 L Anion Gap 18 BUN 48 H Creatinine 1.6 H Estimated GFR/1.73 m2 48 BUN/Creatinine Ratio 30 Glucose 85 Calculated Osmolality 317 Calcium 7.9 L Phosphorus 3.4 Magnesium 2.7 Ghw-I-Cdgfdzefijb Pept 2813 H Albumin 2.7 L Hepatitis Panel HIV 1&2 Antibody Screen 05/29/19 04:46 WBC RBC Hgb Hct MCV MCH MCHC RDW Std Deviation Plt Count MPV Immature Gran % (Auto) Neut % (Auto) Lymph % (Auto) [place] % (Auto) Eos % (Auto) Baso % (Auto) Immature Gran # (Auto) Neut # (Auto) Lymph # (Auto) [place] # (Auto) Eos # (Auto) Baso # (Auto) Segmented Neutrophils Band Neutrophils Lymphocytes Metamyelocytes Myelocytes Hypochromia Large Platelets Haptoglobin Specimen Type ARTERIAL Sample Site R RADIAL pH 7.36 pCO2 43 pO2 101 H HCO3 23.9 Base Excess -1.3 Oxyhemoglobin 97.0 ABG O2 Sat (Calculated) 19.1 ABG O2 Saturation 99.0 ABG Carboxyhemoglobin 1.50 ABG Methemoglobin 0.5 Luis Test YES A-a O2 Difference 202.0 Total Hemoglobin 13.9 Lactate 2.40 H Blood Gas Modality VENTILATOR Vent Mode A/C PC Spontaneous Rate 16 FiO2 % 50.0 Tidal Volume 600 PEEP 10.0 Sodium Potassium Chloride Carbon Dioxide Anion Gap BUN Creatinine Estimated GFR/1.73 m2 BUN/Creatinine Ratio Glucose Calculated Osmolality Calcium Phosphorus Magnesium Pih-U-Koknutcgstj Pept Albumin Hepatitis Panel HIV 1&[address] Nance evaluated and additional note below. Evaluation time in minutes: 31 minutes Assessment: Respiratory failure, intubated on 05/28 ARDS Pneumonia, with b/l pleural effusions Pancytopenia, on immunomodulaters Pulmonary edema D. O. on presentation, intentional Flu A Plan Continue current treatment and supportive care per admitting and other teams on the case. Continue Assissted Control Vent D/C ativan drip, start diprivan Antibiotics Bronchodilators Appropriate DVT and GI prophylaxis Input was appreciated from Admitting MD and other teams on the case. See additional notes by Dr. Nance.
--- NOTE | 2019-05-29 17:33 | HEMO/ONC PROGRESS NOTE ---
DATE: 05/29/2019 SUBJECTIVE: The patient remains in the ICU, intubated. He remains sedated on Diprivan. His family is at bedside in protective garments. The patient tested positive for flu. His oxygen requirements are decreasing on the ventilator according to Respiratory. He had no acute events overnight, and his remains at bedside. OBJECTIVE: Vital Signs: Temperature 99.3 degrees, pulse rate 97, respiratory rate 16, blood pressure 84/46, O2 saturation 95% on mechanical ventilation at 50% O2 and 29% oxygen blow. General: The patient is sedated and is in no acute distress. HEENT: PERRLA. Oral mucosa is dry due to endotracheal tube. Respiratory: respiratory crackles noted. Cardiovascular: Normal S1, S2. Tachycardic rate and rhythm. Abdomen: Soft, nontender. Extremities: No lower extremity edema noted. LABORATORY DATA: WBCs 2.37, hemoglobin 11.3, hematocrit 35.3, platelet count 22,000, ANC 2.03. Sodium 154, potassium 3.3, creatinine 1.68. RADIOLOGIC DATA: Mild interval improvement in his bilateral infiltrates. ASSESSMENT AND PLAN: 1. Acute hypoxic respiratory failure due to acute pulmonary edema and bilateral multifocal pneumonia. The patient has been intubated since 05/28/2019. He has continued to be followed by Infectious Disease and pulmonology. 2. Neutropenia and neutropenic fever. The patient received 1 injection of Neupogen, and his neutrophil count recovered well. 3. Thrombocytopenia. The patient is status post 1 dose of platelets. We are continuing to monitor. Please transfuse him for a platelet count of 20,000 or less or if he is bleeding. 4. Anemia. The patient appears to be holding stable. We will continue to monitor and watch his numbers. 5. Overdose. Continue management per hospitalist. Continue suicide precautions. 6. Hemochromatosis. This is a known condition. We will follow up with him outpatient. 7. Influenza A. The patient tested positive for influenza A. He was started on Oseltamivir. He remains on contact precautions. Continue management per hospitalist. 8. ARF. Dictated by CHRISTIAN Ledesma for Gerald Shin MD cc: MD Jose Alcantar MD MTDD
[2019-05-29] MEDS: PRAVACHOL PO SCH (20:20)
[2019-05-30] MEDS: MERREM 1 GM in NS 50 ML IV SCH ×3 (00:47→15:25)
[2019-05-30] MEDS: DIPRIVAN 1% 1,000 MG/100 ML BOTTLE IV SCH ×4 (03:43→17:19)
[2019-05-30] MEDS: PROTONIX IV SCH ×2 (03:52→15:25)
[2019-05-30] MEDS: SODIUM CHLORIDE 0.9% INJ SCH ×2 (03:52→15:25)
[2019-05-30 05:09] LABS: ALLEN TEST YES; BE 0.2 mmoll (-3.0-3.0); BLOOD TYPE ARTERIAL; O2(CT) 19.8 mL/dL (15.0-23.0); O2HB 96.2 % (95.0-99.0); PCO2(98.6) 42 mmHg (35-45); PO2(98.6) 92 mmHg (60-100); SAMPLE BLOOD; SAO2 98.7 % (95.0-100.0); SRATE 16 BPM; THB 14.6 g/dL (11.5-17.4); TVOL 600 mL; pH(98.6) 7.39 (7.35-7.45)
[2019-05-30 05:10] LABS: MODALITY VENTILATOR
[2019-05-30] MEDS: OFIRMEV 1000 MG/ISOTONIC SOLN 1,000 MG/100 ML BOTTLE IV PRN ×3 (06:33→20:19)
--- NOTE | 2019-05-30 07:55 | Diag Imaging Result Doc PS360 ---
EXAM: CHEST-PORTABLE INDICATION: Vent pt TECHNIQUE: One view COMPARISON: 05/29/2019 FINDINGS: Support tubes and lines are in stable positions. Diffuse bilateral airspace infiltrates are approximately stable. No new consolidation is identified. Cardiac silhouette is stable. IMPRESSION: Essentially stable chest. Electronically signed by Josh Chen 05/30/2019 7:53 AM
[2019-05-30] MEDS: TAMIFLU NG SCH ×2 (07:59→20:18)
[2019-05-30] MEDS: EFFEXOR XR PO SCH (08:00)
[2019-05-30 08:07] LABS: BASO# 0.01 X1000 (0.0-0.2); BASO% 0.3 % (0.0-0.8); EOS# 0.09 X1000 (0.0-0.7); EOS% 2.9 % (0.0-10.0); HEMATOCRIT 41.6 % (42.0-52.0); HEMOGLOBIN 13.5 g/dL (14.0-18.0); IMM GRAN# 0.04 X1000 (0.0-0.04); IMM GRAN% 1.3 % (0.0-0.5); LYMPH# 0.44 X1000 (1.2-3.4); LYMPH% 14.3 % (20.5-51.1); MCH 27.1 PG (27-31); MCHC 32.5 g/dL (33-37); MCV 83.5 FL (81-99); MONO# 0.05 X1000 (0.11-0.59); MONO% 1.6 % (1.7-9.3); NEUT# 2.45 X1000 (1.4-6.5); NEUT% 79.6 % (42.2-75.2); PLT 27 X1000 (130-400); RBC 4.98 XMIL (4.7-6.1); RDW 14.3 % (11.5-14.5); WBC 3.08 X1000 (4.8-10.8)
[2019-05-30] MEDS: ATROVENT NEB INH SCH ×3 (09:44→21:43)
[2019-05-30] MEDS: XOPENEX NEB INH SCH ×3 (09:44→21:43)
[2019-05-30 09:53] LABS: LYMPHS 20 % (21-51); MONO 13 % (1-9); SEGS 67 % (42-75)
--- NOTE | 2019-05-30 09:56 | PROVIDER PROGRESS NOTE ---
Progress Note Pulmonary additional note: I have seen and examine the case, reviewed the EMR, labs, latest images and other medical teams notes. Also reviewed the PROCESS DESIGNER notes and signed necessary form(s). I have noted changes in condition if any from yesterday and did orders. Please see also signed progress sheet. Prognosis: Guarded for now. Since yesterday, there is improvement of oxygenation and will attempt a weaning trial. I reviewed notes from Dr. Newberry, and Dr. Shin. He is on Tamiflu. Remains cytopenic. A. ARDS, pulmonary edema. influenza pneumonia and thrombocytopenia nd neutropenia. The condition was discussed with the and sister and their questions were answered. I asked staff midwife/apprenticeship director about condition changes and if they have any needs in regard to today conditions. I spent 34 minutes in this process
[2019-05-30 10:08] LABS: ALB/GLOB RATIO 0.6; ALBUMIN 2.2 g/dL (3.5-5.0); CALCIUM 7.9 mg/dL (8.8-10.2); CREATININE 1.6 mg/dL (0.7-1.2); POTASSIUM 3.9 mmol/L (3.5-5.1); TOTAL BILIRUBIN 0.34 mg/dL (0.20-1.00); TOTAL PROTEIN 5.9 g/dL (6.3-8.3)
--- NOTE | 2019-05-30 10:36 | PROVIDER PROGRESS NOTE ---
Progress Note Dr. Nance Progress Note/Pulmonary and or critical care We appreciated progress of care, Complications, change in diagnosis, and instructions to patient under direct supervision of Dr. Nance. Subjective: We note the level of consciousness, bed (chair) position, family presence (if any), level of lethargy, feeling of symptoms, and changes from baseline condition/symptom. The patient has been intubated and sedated since 05/28/2019 morning. He is still having fever (currently 101.1) and diarrhea. He is on diprivan drip and BP within the normal range. FiO2 on 50%. The is at the bedside. Objective: Vital Signs: We reviewed EMR current values for Pulse rate, Blood pressure, Pulse rate, respiratory rate and Pulse oximetry. Also noted other values and trends if present (e.g. I/O, CVP). Vital Signs 05/29/19 16:00 05/29/19 16:15 05/29/19 16:36 Temperature 99.3 F Pulse Rate 97 H 106 H 108 H Respiratory Rate 16 16 16 Blood Pressure 84/46 83/51 75/52 O2 Sat by Pulse Oximetry 95 90 L 94 L 05/29/19 16:45 05/29/19 17:00 05/29/19 17:15 Temperature Pulse Rate 108 H 105 H 104 H Respiratory Rate 16 16 16 Blood Pressure 76/49 73/52 75/55 O2 Sat by Pulse Oximetry 94 L 94 L 95 05/29/19 17:30 05/29/19 17:45 05/29/19 18:00 Temperature Pulse Rate 102 H 101 H 100 H Respiratory Rate 16 16 16 Blood Pressure 81/53 80/57 82/57 O2 Sat by Pulse Oximetry 93 L 93 L 94 L 05/29/19 18:15 05/29/19 18:30 05/29/19 18:45 Temperature Pulse Rate 97 H 97 H 96 H Respiratory Rate 16 16 16 Blood Pressure 86/61 86/61 86/61 O2 Sat by Pulse Oximetry 95 97 97 05/29/19 19:00 05/29/19 19:15 05/29/19 19:30 Temperature Pulse Rate 96 H 97 H 98 H Respiratory Rate 16 16 18 Blood Pressure 88/58 86/62 91/64 O2 Sat by Pulse Oximetry 97 97 96 05/29/19 19:44 05/29/19 19:45 05/29/19 20:00 Temperature Pulse Rate 98 H 99 H Respiratory Rate 18 17 Blood Pressure 89/66 93/64 O2 Sat by Pulse Oximetry 96 96 96 05/29/19 20:15 05/29/19 20:20 05/29/19 20:30 Temperature 100.6 F H Pulse Rate 100 H 98 H 98 H Respiratory Rate 17 16 15 Blood Pressure 91/69 91/69 86/64 O2 Sat by Pulse Oximetry 96 95 95 05/29/19 20:45 05/29/19 21:00 05/29/19 21:15 Temperature Pulse Rate 100 H 100 H 100 H Respiratory Rate 16 18 17 Blood Pressure 91/69 96/67 94/71 O2 Sat by Pulse Oximetry 95 96 96 05/29/19 21:30 05/29/19 21:45 05/29/19 22:00 Temperature Pulse Rate 108 H 108 H 107 H Respiratory Rate 16 16 16 Blood Pressure 92/67 100/66 97/73 O2 Sat by Pulse Oximetry 94 L 95 96 05/29/19 22:15 05/29/19 22:30 05/29/19 22:45 Temperature Pulse Rate 110 H 115 H 115 H Respiratory Rate 17 16 16 Blood Pressure 102/68 99/68 95/69 O2 Sat by Pulse Oximetry 96 95 95 05/29/19 23:00 05/29/19 23:15 05/29/19 23:30 Temperature Pulse Rate 112 H 111 H 109 H Respiratory Rate 16 16 16 Blood Pressure 94/68 94/67 92/70 O2 Sat by Pulse Oximetry 95 95 95 05/29/19 23:45 05/30/19 00:00 05/30/19 00:15 Temperature Pulse Rate 110 H 108 H 107 H Respiratory Rate 16 16 16 Blood Pressure 95/66 91/64 93/67 O2 Sat by Pulse Oximetry 95 95 95 05/30/19 00:30 05/30/19 00:36 05/30/19 00:45 Temperature 99.9 F H Pulse Rate 106 H 105 H 105 H Respiratory Rate 16 16 16 Blood Pressure 91/69 91/69 96/71 O2 Sat by Pulse Oximetry 95 96 96 05/30/19 01:00 05/30/19 01:15 05/30/19 01:30 Temperature Pulse Rate 104 H 103 H 102 H Respiratory Rate 16 16 16 Blood Pressure 97/69 95/69 95/68 O2 Sat by Pulse Oximetry 96 96 96 05/30/19 01:45 05/30/19 02:00 05/30/19 02:15 Temperature Pulse Rate 102 H 101 H 101 H Respiratory Rate 16 16 16 Blood Pressure 94/70 92/69 102/73 O2 Sat by Pulse Oximetry 96 96 97 05/30/19 02:30 05/30/19 02:45 05/30/19 03:00 Temperature Pulse Rate 103 H 102 H 101 H Respiratory Rate 16 16 16 Blood Pressure 95/71 95/71 96/67 O2 Sat by Pulse Oximetry 97 97 97 05/30/19 03:15 05/30/19 03:30 05/30/19 03:45 Temperature Pulse Rate 103 H 102 H 99 H Respiratory Rate 16 16 16 Blood Pressure 102/74 106/71 97/71 O2 Sat by Pulse Oximetry 97 97 97 05/30/19 03:57 05/30/19 04:00 05/30/19 04:15 Temperature 100.4 F H Pulse Rate 105 H 102 H 102 H Respiratory Rate 16 16 16 Blood Pressure 97/71 102/71 101/73 O2 Sat by Pulse Oximetry 97 100 96 05/30/19 04:30 05/30/19 04:45 05/30/19 05:00 Temperature Pulse Rate 101 H 100 H 99 H Respiratory Rate 16 16 17 Blood Pressure 108/80 102/74 107/79 O2 Sat by Pulse Oximetry 97 97 97 05/30/19 05:15 05/30/19 05:30 05/30/19 05:45 Temperature Pulse Rate 98 H 97 H 98 H Respiratory Rate 17 17 17 Blood Pressure 106/81 109/75 106/76 O2 Sat by Pulse Oximetry 97 97 97 05/30/19 06:00 05/30/19 06:15 05/30/19 06:30 Temperature Pulse Rate 98 H 97 H 96 H Respiratory Rate 17 15 18 Blood Pressure 105/80 89/67 104/78 O2 Sat by Pulse Oximetry 98 99 96 05/30/19 06:45 05/30/19 07:00 05/30/19 07:15 Temperature Pulse Rate 96 H 96 H 98 H Respiratory Rate 17 17 17 Blood Pressure 115/75 109/78 106/75 O2 Sat by Pulse Oximetry 97 97 97 05/30/19 07:30 05/30/19 07:45 05/30/19 08:00 Temperature 100.4 F H Pulse Rate 98 H 96 H 93 H Respiratory Rate 16 16 16 Blood Pressure 108/75 105/78 104/77 O2 Sat by Pulse Oximetry 96 97 97 05/30/19 08:15 05/30/19 08:30 05/30/19 08:45 Temperature Pulse Rate 93 H 91 H 93 H Respiratory Rate 16 16 16 Blood Pressure 105/73 109/76 110/79 O2 Sat by Pulse Oximetry 97 97 97 05/30/19 09:00 05/30/19 09:15 05/30/19 09:30 Temperature Pulse Rate 92 H 91 H 91 H Respiratory Rate 18 17 18 Blood Pressure 107/80 111/81 109/80 O2 Sat by Pulse Oximetry 97 97 98 05/30/19 09:45 05/30/19 10:00 05/30/19 10:15 Temperature Pulse Rate 91 H 96 H 99 H Respiratory Rate 16 16 16 Blood Pressure 107/82 113/80 112/80 O2 Sat by Pulse Oximetry 99 99 88 L 05/30/19 10:30 05/30/19 10:45 05/30/19 11:00 Temperature Pulse Rate 99 H 100 H 99 H Respiratory Rate 17 18 18 Blood Pressure 115/81 117/85 112/84 O2 Sat by Pulse Oximetry 90 L 97 97 05/30/19 11:15 05/30/19 11:30 05/30/19 11:45 Temperature Pulse Rate 101 H 100 H 100 H Respiratory Rate 19 20 19 Blood Pressure 113/81 117/81 114/80 O2 Sat by Pulse Oximetry 96 97 96 05/30/19 12:00 05/30/19 12:15 05/30/19 12:30 Temperature 99.0 F Pulse Rate 101 H 103 H 104 H Respiratory Rate 19 20 20 Blood Pressure 114/81 115/86 117/87 O2 Sat by Pulse Oximetry 96 97 97 05/30/19 12:45 05/30/19 13:00 05/30/19 13:15 Temperature Pulse Rate 105 H 86 108 H Respiratory Rate 21 17 20 Blood Pressure 121/87 121/83 127/82 O2 Sat by Pulse Oximetry 97 98 97 05/30/19 13:30 05/30/19 13:45 05/30/19 14:00 Temperature Pulse Rate 109 H 110 H 112 H Respiratory Rate 22 20 20 Blood Pressure 124/84 119/86 125/87 O2 Sat by Pulse Oximetry 98 97 97 05/30/19 14:15 05/30/19 14:30 05/30/19 14:45 Temperature Pulse Rate 112 H 111 H 112 H Respiratory Rate 20 21 18 Blood Pressure 124/83 122/84 122/85 O2 Sat by Pulse Oximetry 97 97 97 05/30/19 15:00 05/30/19 15:15 05/30/19 15:30 Temperature Pulse Rate 115 H 115 H 117 H Respiratory Rate 21 20 21 Blood Pressure 121/85 123/86 128/85 O2 Sat by Pulse Oximetry 97 97 97 05/30/19 15:45 Temperature Pulse Rate 115 H Respiratory Rate 21 Blood Pressure 119/82 O2 Sat by Pulse Oximetry 97 Intake & Output 05/29/19 05/30/19 05/30/19 19:59 07:59 19:59 Intake Total 543 / 1195 652 / 1195 716 / 716 Output Total 1475 / 2555 1080 / 2555 650 / 650 Balance -932 / -1360 -428 / -1360 66 / 66 Intake: Intake, IV Amount 320 / 320 Intake, IVPB 50 / 350 300 / 350 50 / 50 Intake, IV Electrolyte Infusion 200 / 200 Intake, IV Ativan Drip 220 / 220 Intake, IV Diprivan 73 / 365 292 / 365 146 / 146 Intake, TPN/PPN Amount 200 / 200 Intake, Tube Irrigant Amount 60 / 60 Output: Output, Urine Page Amount 1375 / 2155 780 / 2155 600 / 600 Output, NG Tube 100 / 400 300 / 400 50 / 50 Other: Number of Bowel Movements 1 Bowel Movement Color and Liquid Character Green Physical Examination: General: Lying in bed with no acute distress noted. HEENT: Trachea midline. ETT in place. Mucus pink and slightly dry. Chest: Mechanically ventilated. Symmetrical excursion. Auscultation reveals diminished breathing sounds bilaterally and early inspiratory crackles LLL. CVS: Regular rate and rhythm. Sinus tachycardia. Abdomen: Soft. Nontender. Bowel sounds present in all 4 quadrants. Nondistended. Extremities: No pedal edema. Neuro: Sedated. Labs and Radiology: Reviewed available labs and radiology values available at time of EMR review. Laboratory Results 05/26/19 05/28/19 05/30/19 17:05 13:59 04:50 WBC RBC Hgb Hct MCV MCH MCHC RDW Std Deviation Plt Count MPV Immature Gran % (Auto) Neut % (Auto) Lymph % (Auto) [place] % (Auto) Eos % (Auto) Baso % (Auto) Immature Gran # (Auto) Neut # (Auto) Lymph # (Auto) [place] # (Auto) Eos # (Auto) Baso # (Auto) Segmented Neutrophils Lymphocytes Monocytes Specimen Type Sample Site pH pCO2 pO2 HCO3 Base Excess Oxyhemoglobin ABG O2 Sat (Calculated) ABG O2 Saturation ABG Carboxyhemoglobin ABG Methemoglobin Luis Test A-a O2 Difference Total Hemoglobin Lactate Blood Gas Modality Vent Mode Spontaneous Rate FiO2 % Tidal Volume PEEP Sodium Potassium Chloride Carbon Dioxide Anion Gap BUN Creatinine Estimated GFR/1.73 m2 BUN/Creatinine Ratio Glucose Calculated Osmolality Calcium Magnesium 3.0 H Total Bilirubin AST ALT Alkaline Phosphatase Creatine Kinase [id number]-L-Heghoszzwmx Pept Total Protein Albumin Globulin Albumin/Globulin Ratio Procalcitonin SEE COMMENTS Urine Source Urine Color Urine Turbidity Urine pH Ur Specific [place] Urine Protein Ur Glucose (Stick) Ur Ketones (Stick) Urine Blood Urine Nitrite Urine Bilirubin Urobilinogen Dipstick Urine Leukocytes Urine WBC (Auto) Urine RBC (Auto) U Epithel Cells (Auto) Urine Bacteria (Auto) Urine Osmolality Ur Random Creatinine U Random Total Protein Ur Random Sodium Ur Random Urea Nitrogn Stl E.coli Shiga Toxins SEE COMMENTS 05/30/19 05/30/19 05/30/19 04:50 05:00 07:00 WBC 3.08 L RBC 4.98 Hgb 13.5 L D Hct 41.6 L MCV 83.5 MCH 27.1 MCHC 32.5 L RDW Std Deviation 14.3 Plt Count 27 L* MPV Not Reportable Immature Gran % (Auto) 1.3 H Neut % (Auto) 79.6 H Lymph % (Auto) 14.3 L [place] % (Auto) 1.6 L Eos % (Auto) 2.9 Baso % (Auto) 0.3 Immature Gran # (Auto) 0.04 Neut # (Auto) 2.45 Lymph # (Auto) 0.44 L [place] # (Auto) 0.05 L Eos # (Auto) 0.09 Baso # (Auto) 0.01 Segmented Neutrophils 67 Lymphocytes 20 L Monocytes 13 H Specimen Type ARTERIAL Sample Site R RADIAL pH 7.39 pCO2 42 pO2 92 HCO3 25.0 Base Excess 0.2 Oxyhemoglobin 96.2 ABG O2 Sat (Calculated) 19.8 ABG O2 Saturation 98.7 ABG Carboxyhemoglobin 1.40 ABG Methemoglobin 1.0 Luis Test YES A-a O2 Difference 212.0 Total Hemoglobin 14.6 Lactate 1.70 Blood Gas Modality VENTILATOR Vent Mode A/C Spontaneous Rate 16 FiO2 % 50.0 Tidal Volume 600 PEEP 10.0 Sodium Potassium Chloride Carbon Dioxide Anion Gap BUN Creatinine Estimated GFR/1.73 m2 BUN/Creatinine Ratio Glucose Calculated Osmolality Calcium Magnesium Total Bilirubin AST ALT Alkaline Phosphatase Creatine Kinase Hef-L-Wdqcodlkwdy Pept 430 H Total Protein Albumin Globulin Albumin/Globulin Ratio Procalcitonin Urine Source Urine Color Urine Turbidity Urine pH Ur Specific [place] Urine Protein Ur Glucose (Stick) Ur Ketones (Stick) Urine Blood Urine Nitrite Urine Bilirubin Urobilinogen Dipstick Urine Leukocytes Urine WBC (Auto) Urine RBC (Auto) U Epithel Cells (Auto) Urine Bacteria (Auto) Urine Osmolality Ur Random Creatinine U Random Total Protein Ur Random Sodium Ur Random Urea Nitrogn Stl E.coli Shiga Toxins 05/30/19 05/30/19 05/30/19 09:30 11:54 11:54 WBC RBC Hgb Hct MCV MCH MCHC RDW Std Deviation Plt Count MPV Immature Gran % (Auto) Neut % (Auto) Lymph % (Auto) [place] % (Auto) Eos % (Auto) Baso % (Auto) Immature Gran # (Auto) Neut # (Auto) Lymph # (Auto) [place] # (Auto) Eos # (Auto) Baso # (Auto) Segmented Neutrophils Lymphocytes Monocytes Specimen Type Sample Site pH pCO2 pO2 HCO3 Base Excess Oxyhemoglobin ABG O2 Sat (Calculated) ABG O2 Saturation ABG Carboxyhemoglobin ABG Methemoglobin Luis Test A-a O2 Difference Total Hemoglobin Lactate Blood Gas Modality Vent Mode Spontaneous Rate FiO2 % Tidal Volume PEEP Sodium 158 H Potassium 3.9 D Chloride 120 H Carbon Dioxide 26 Anion Gap 12 BUN 58 H Creatinine 1.6 H Estimated GFR/1.73 m2 48 BUN/Creatinine Ratio 36 Glucose 103 Calculated Osmolality 329 Calcium 7.9 L Magnesium Total Bilirubin 0.34 AST 448 H ALT 51 H Alkaline Phosphatase 108 Creatine Kinase 3167 H Apv-N-Lpobjxwwmoe Pept Total Protein 5.9 L Albumin 2.2 L Globulin 3.7 Albumin/Globulin Ratio 0.6 Procalcitonin Urine Source Urine Color Urine Turbidity Urine pH Ur Specific [place] Urine Protein Ur Glucose (Stick) Ur Ketones (Stick) Urine Blood Urine Nitrite Urine Bilirubin Urobilinogen Dipstick Urine Leukocytes Urine WBC (Auto) Urine RBC (Auto) U Epithel Cells (Auto) Urine Bacteria (Auto) Urine Osmolality 654 Ur Random Creatinine 72.0 H U Random Total Protein 78.6 Ur Random Sodium 24 Ur Random Urea Nitrogn 1325 Stl E.coli Shiga Toxins 05/30/19 11:54 WBC RBC Hgb Hct MCV MCH MCHC RDW Std Deviation Plt Count MPV Immature Gran % (Auto) Neut % (Auto) Lymph % (Auto) [place] % (Auto) Eos % (Auto) Baso % (Auto) Immature Gran # (Auto) Neut # (Auto) Lymph # (Auto) [place] # (Auto) Eos # (Auto) Baso # (Auto) Segmented Neutrophils Lymphocytes Monocytes Specimen Type Sample Site pH pCO2 pO2 HCO3 Base Excess Oxyhemoglobin ABG O2 Sat (Calculated) ABG O2 Saturation ABG Carboxyhemoglobin ABG Methemoglobin Luis Test A-a O2 Difference Total Hemoglobin Lactate Blood Gas Modality Vent Mode Spontaneous Rate FiO2 % Tidal Volume PEEP Sodium Potassium Chloride Carbon Dioxide Anion Gap BUN Creatinine Estimated GFR/1.73 m2 BUN/Creatinine Ratio Glucose Calculated Osmolality Calcium Magnesium Total Bilirubin AST ALT Alkaline Phosphatase Creatine Kinase Tek-T-Duvinylgqnu Pept Total Protein Albumin Globulin Albumin/Globulin Ratio Procalcitonin Urine Source CATH Urine Color YELLOW Urine Turbidity CLEAR Urine pH 6.5 Ur Specific [place] 1.030 Urine Protein 200 A Ur Glucose (Stick) NEGATIVE Ur Ketones (Stick) TRACE A Urine Blood MODERATE A Urine Nitrite NEGATIVE Urine Bilirubin NEGATIVE Urobilinogen Dipstick NORMAL Urine Leukocytes NEGATIVE Urine WBC (Auto) 10-20 A Urine RBC (Auto) 20-40 A U Epithel Cells (Auto) <10 Urine Bacteria (Auto) NEGATIVE Urine Osmolality Ur Random Creatinine U Random Total Protein Ur Random Sodium Ur Random Urea Nitrogn Stl E.coli Shiga Toxins Dr. Nance evaluated and additional note below. Evaluation time in minutes: 32 minutes. Assessment: Acute respiratory failure. Intubated on 05/28/2019. ARDS Pneumonia with b/l pleural effusions Pancytopenia with neutropenic fever. Slowly improving. Pulmonary edema with elevated proBNP. Improving. D.O. on presentation, intentional. Flu A ARF Plan: Continue current treatment and supportive care per admitting and other teams on the case. Continue Assisted Control Vent. Antibiotics and bronchodilators. Appropriate DVT and GI prophylaxis. Input was appreciated from Admitting MD and other teams on the case. See additional notes by Dr. Nance.
[2019-05-30] MEDS ORDERED: D5W 1,000 ML IV SCH (11:15)
[2019-05-30] MEDS: CLINIMIX E 4.25%-5% SOLUTION 1,000 ML IV SCH (11:20)
--- NOTE | 2019-05-30 12:13 | Diag Imaging Result Doc PS360 ---
EXAM: ABDOMEN FLAT/UPRIGHT 05/30/2019 HISTORY: obstruction TECHNIQUE: Flat and upright abdomen COMMENT: There is an NG tube in the stomach. There is no evidence of bowel dilatation organomegaly or mass. Compared to 05/27/2019 there is much less colonic gas. IMPRESSION: No evidence of obstruction. Nonspecific abdomen. Electronically signed by Daniel Yeung 05/30/2019 12:11 PM
[2019-05-30 12:16] LABS: UR PROT RANDOM 78.6 mg/dL
[2019-05-30 12:57] LABS: URINE SOURCE CATH
[2019-05-30 13:04] LABS: BILIRUBIN URINE NEGATIVE (NEGATIVE); BLOOD URINE MODERATE (NEGATIVE); COLOR YELLOW; GLUCOSE URINE NEGATIVE (NEGATIVE); KETONE URINE TRACE mg/dL (NEGATIVE); LEUKOCYTES URINE NEGATIVE (NEGATIVE); NITRITE URINE NEGATIVE (NEGATIVE); PH URINE 6.5; PROTEIN URINE 200 mg/dL (NEGATIVE); TURBIDITY URINE CLEAR (CLEAR); UR EPITHELIAL CELLS <10 /HPF (<10); URINE BACTERIA NEGATIVE /HPF; URINE RBC 20-40 /HPF (<10); UROBILINOGEN URINE NORMAL (NORMAL)
--- NOTE | 2019-05-30 13:17 | HEMO/ONC PROGRESS NOTE ---
DATE: 05/30/2019 SUBJECTIVE: Not much change in the patient this morning. He remains sedated and intubated in the ICU. The patient is on contact precaution as he is positive for influenza A. His oxygen requirements are continuing to decrease according to Respiratory. Nursing does not report any significant events overnight. The patient does continue to have some diarrhea. His remains at his bedside daily. VITAL SIGNS: Temperature 100.4, pulse rate 99, respiratory rate 16, blood pressure 112/80, O2 saturation 88% on mechanical ventilation at 38% oxygen flow. PHYSICAL EXAMINATION: General: The patient remains sedated and appears in no acute distress. HEENT: Pupils are DENEEN but are not reactive. Oral mucosa is dry due to endotracheal tube in place. Respiratory: Inspiratory crackles noted on the left, overall diminished breath sounds. Cardiovascular: Tachycardic rate and rhythm. Abdomen: Soft, nontender, nondistended. Extremities: No lower extremity edema noted. LABORATORY: WBC is 3.08, hemoglobin 13.5, hematocrit 41.6, platelet count 27,000, ANC 2.45. Sodium 158, potassium 3.9, creatinine 1.6. Magnesium 3.0. Total bilirubin 0.34, AST 448, ALT 51. CK 3167. RADIOLOGIC: Abdominal x-ray showed NG tube in place in the stomach. No evidence of obstruction. No acute abnormality. ASSESSMENT AND PLAN: 1. Acute hypoxic respiratory failure due to acute pulmonary edema and bilateral multifocal pneumonia. The patient has been intubated since 05/28/2019. He has continued to be followed by Infectious Disease and Pulmonology. He appears to be improving from that standpoint. Continue management per their services. 2. Neutropenia and neutropenic fever. His neutropenia has resolved. He received 1 injection of Neupogen and has recovered well. His fever most likely due to his infection and influenza. 3. Thrombocytopenia. Due to a combination of sepsis/flu/ drug overdose. The patient's platelets have continued to remain low but actually improving, today they are 27,000. We recommend transfusion for a platelet count of less than 20,000 or if he has acute bleeding However, if Pulmonology has a different suggestion for threshold, please follow their recommendation. 4. Anemia. The patient appears to be holding stable. We will continue to monitor his numbers peripherally. 5. Overdose. Continue his management per Hospitalist. Continue suicide precautions. 6. Influenza A. The patient has tested positive for influenza. He continues on oseltamivir. Continue him on contact precautions. Continue management per the Hospitalist. 7. Acute renal failure. Continue medical management. 8. Disposition: It is our anticipation that the patient's platelet count will continue to improve. It is possible that this is related to his overdose or his infection but he has no acute history of low platelets. At this time, we will continue to monitor peripherally. Please feel free to contact us if needed. Dictated by CHRISTIAN Ledesma for Gerald Shin MD cc: MD Jose Alcantar MD [facility]ITALRadha
--- NOTE | 2019-05-30 15:46 | INFECTIOUS DISEASE PROGRESS NO ---
DATE: 05/30/2019 PRESENT ILLNESS: The patient has influenza A, and he may have developed a bacterial super infection in his lungs. MEDICATIONS: Currently, the patient is on: 1. Tamiflu x1 day. 2. Micafungin x2 days. 3. Meropenem x1 day. PHYSICAL EXAMINATION: Vital Signs: Temperature is 100.6 degrees, pulse 98, respirations 16, blood pressure 108/75. General: This is a somewhat ill-appearing young male. He appears to be in no acute distress. Head, eyes, ears, nose and throat: Patient has an orotracheal and an orogastric tube in place. Neck: No stiffness. Lungs: Clear to auscultation. Cardiovascular: Heart rate is regular. Abdomen: Soft and nontender. Neurologic: The patient is sedated. He does not respond to verbal stimuli. He does not have a tremor. LAB AND X-RAY: Chest x-ray shows stable bilateral infiltrates. There is no BMP back yet today. The CBC shows a white count of 3080, hemoglobin 13.5, and platelet count 27,000. Blood gases show a pH of 7.39, a PO2 of 92, and a pCO2 of 42. Hepatitis panel and HIV antibodies are nonreactive and negative, respectively. ASSESSMENT AND PLAN: The patient has influenza and possibly a bacterial super infection in his lungs. My plan is to continue with meropenem, micafungin, and Tamiflu. COMORBIDITIES: Psoriatic arthritis, hemochromatosis, anxiety, depression, and hepatic steatosis. cc: MD Jose Negron MD
[2019-05-30] MEDS: MYCAMINE 100 MG in NS 100 ML IV SCH (15:59)
[2019-05-30] MEDS: D5W 1,000 ML IV SCH ×3 (18:10→22:47)
[2019-05-30] MEDS: PRAVACHOL PO SCH (20:18)
--- NOTE | 2019-05-30 21:43 | PROGRESS NOTE ---
DATE: 05/30/2019 SUBJECTIVE: The patient is currently sedated on the ventilator. He is currently on a Diprivan drip. OBJECTIVE: T-max 100.6 degrees, blood pressure 104/76, heart rate 100, respirations 18, O2 saturation 97% on mechanical ventilator. Intake 1.1 L, output 2.5 L.General: This is a chronically ill-appearing middle-aged male, currently sedated on the ventilator. Heart: S1, S2 normal. Tachycardic. Lungs: Coarse breath sounds bilaterally, diminished at the bases. Abdomen: Positive bowel sounds. Soft, nontender, nondistended. Extremities: No edema, no cyanosis, no calf tenderness. Neurologic: The patient is currently sedated on the ventilator. LABORATORY DATA: White blood cell count 3, hemoglobin 13, hematocrit 41, platelets 27,000. Sodium 158, potassium 3.9, chloride 120, CO2 is 26, BUN 58, creatinine 1.6, glucose 103, calcium 7.9, magnesium 3. AST 448, ALT 51, alkaline phosphatase 108. CK 3167. Albumin 2.2. ABG normal. DIAGNOSTIC DATA: 1. Chest x-ray shows diffuse bilateral air-space infiltrates. 2. Abdominal x-ray shows a nonspecific abdomen. ASSESSMENT AND PLAN: 1. Acute hypoxemic respiratory failure. Multifactorial. The patient has pneumonia and influenza A. We will continue with the current antibiotic and antifungal regimen as directed by Dr. Pitt. Continue with ventilatory support as directed by the pin pusher. 2. Sepsis. The blood cultures are negative at this time. We will continue to monitor closely. We will order a sputum Gram stain and culture. 3. Influenza A. Continue on Tamiflu. 4. Rhabdomyolysis. The patient has been started on intravenous fluids. We will monitor the CK closely. 5. Acute kidney injury. Multifactorial. The patient has been receiving diuretic therapy for the last 3 days and the patient is in rhabdomyolysis. We will start intravenous fluids and consult with Nephrology. 6. Pancytopenia. The patient is no longer neutropenic. His platelet count is low but stable. Dr. Shin is following. 7. Intentional drug overdose. Aware. The patient will need a psychiatric evaluation once he is medically stable. 8. Hemochromatosis. Aware. Gastroenterology has been consulted. Hematology is also following. 9. Elevated liver function tests. Likely secondary to rhabdomyolysis. Gastroenterology is following. 10. Severe protein-calorie malnutrition. We will start the patient on Clinimix. We will likely start tube feeds tomorrow. 11. Disposition: The patient is a Full Code. The patient is critically ill with a high risk of mortality. The patient's mother and were updated about the patient's medical condition and the plan of care. cc: MD Jose Yap MD
[2019-05-31] MEDS: SODIUM CHLORIDE 0.9% INJ SCH ×2 (00:20→15:09)
[2019-05-31] MEDS: DIPRIVAN 1% 1,000 MG/100 ML BOTTLE IV SCH ×5 (00:49→19:51)
[2019-05-31] MEDS: MERREM 1 GM in NS 50 ML IV SCH ×4 (00:51→23:01)
[2019-05-31] MEDS: MORPHINE IV PRN ×4 (01:48→22:57)
[2019-05-31] MEDS: PROTONIX IV SCH ×2 (04:20→15:09)
[2019-05-31 05:00] LABS: ALLEN TEST YES; BE -3.5 mmoll (-3.0-3.0); BLOOD TYPE ARTERIAL; HCO3-(ACT) 22.2 mmoll (20.0-26.0); METHB 0.8 % (0.0-1.5); O2(CT) 16.2 mL/dL (15.0-23.0); O2HB 96.9 % (95.0-99.0); PCO2(98.6) 37 mmHg (35-45); PO2(98.6) 101 mmHg (60-100); SAMPLE BLOOD; SAO2 99.2 % (95.0-100.0); SRATE 16 BPM; THB 11.8 g/dL (11.5-17.4); TVOL 600 mL; pH(98.6) 7.37 (7.35-7.45)
[2019-05-31 05:02] LABS: MODALITY VENTILATOR
[2019-05-31] MEDS: CLINIMIX E 4.25%-5% SOLUTION 1,000 ML IV SCH (06:33)
[2019-05-31 06:45] LABS: AGAP 15; ALB/GLOB RATIO 0.5; ALBUMIN 1.9 g/dL (3.5-5.0); ALKALINE PHOSPHATASE 105 U/L (32-122); BUN 35 mg/dL (8-22); CALCIUM 7.7 mg/dL (8.8-10.2); CHLORIDE 118 mmol/L (98-107); COSMO 316; CREATININE 0.9 mg/dL (0.7-1.2); ESTIMATED GFR > 60; GLUCOSE 172 mg/dL (70-104); POTASSIUM 3.9 mmol/L (3.5-5.1); SODIUM 153 mmol/L (136-145); TCO2 20 mmol/L (25-35); TOTAL PROTEIN 5.6 g/dL (6.3-8.3)
[2019-05-31 06:58] LABS: CK TOTAL 3790 U/L (24-204); GOT 360 U/L (10-34); GPT 27 U/L (10-44)
--- NOTE | 2019-05-31 07:06 | NEPHROLOGY CONSULTATION ---
DATE: 05/30/2019 REASON FOR CONSULTATION: Acute kidney injury. HISTORY OF PRESENT ILLNESS: Mr. Chairez is a 39-year-old white male who was admitted to the hospital on 05/24 for polysubstance overdose including "muscle relaxer", prednisone, oxycodone, and ibuprofen. He was treated with Narcan and cardiopulmonary support. Ultimately, he required intubation. Transferred to [facility] for management of his acute care. His renal function was abnormal on presentation with creatinine of 2.0, and he improved to 0.9 with IV fluid resuscitation and general medical support. He did experience moderate hypotension with systolic blood pressures as low as into the 70s on the . This is improved progressively. He required Diprivan and Ativan drips, but no vasopressor support. In this context, he has received over 11 L of IV fluid resuscitation, and has excellent urine output such that he is net actually net -2 L to the current time. In that context, he has not received IV contrast and no overtly nephrotoxic medications. He has been treated with IV diuretics because of bilateral pulmonary infiltrates and IV antibiotics. He also has the flu. PAST MEDICAL HISTORY: Hemochromatosis, psoriatic arthritis, depression, and hepatic steatosis. ALLERGIES: None. MEDICATIONS: Reviewed. Currently Clinimix, acetaminophen, D5W at 100 an hour, haloperidol, ipratropium, levalbuterol, meropenem, micafungin, morphine, ondansetron, oseltamivir, pantoprazole, pravastatin, propofol, and venlafaxine. ALLERGIES: None. SOCIAL HISTORY: As above. He is . FAMILY HISTORY: Noncontributory otherwise. REVIEW OF SYSTEMS: Noncontributory otherwise. PHYSICAL EXAMINATION: Vital Signs: Blood pressure 117/86, heart rate 94, respirations 22, and temperature 102.7 degrees. General: Sedated and intubated. Unresponsive. Skin: Warm and dry. Pupils are equal. Conjunctivae are pink. Oropharynx is dry. Heart: Regular. Lungs: Equal. Scattered crackles. Abdomen: Soft. Decreased bowel sounds. No organomegaly. Extremities: No edema, clubbing or cyanosis. IMPRESSION: Acute kidney injury and hypernatremia in the context of aggressive diuretic therapy and negative fluid balance. I discussed the case directly with Dr. Marmolejo who is at the bedside. He has ordered D5W at 100 mL an hour calculating a free water deficit around 5 L. He is also on Clinimix at 50 mL an hour which is hypotonic. We will continue this treatment and re-evaluate his renal function and serum sodium in the morning. If he does not demonstrate improvement in that time, then we will consider further evaluation. He had a renal ultrasound back on the and an abdominal CT on the two days ago. He did not have any evidence of obstruction at that time. cc: MD Jose Champion MD MTDD
--- NOTE | 2019-05-31 07:09 | Diag Imaging Result Doc PS360 ---
EXAM: CHEST-PORTABLE 05/31/2019 HISTORY: Vent pt TECHNIQUE: AP portable at 0605 COMMENT: There is an endotracheal tube with its tip at the thoracic inlet. There is an NG tube with tip below the diaphragm. There is diffuse interstitial pulmonary edema. This may be slightly improved since 05/30/2018. IMPRESSION: Minimally improved pulmonary edema. Electronically signed by Daniel Yeung 05/31/2019 7:07 AM
[2019-05-31 07:17] LABS: BASO# 0.03 X1000 (0.0-0.2); BASO% 1.5 % (0.0-0.8); HEMATOCRIT 43.1 % (42.0-52.0); HEMOGLOBIN 13.7 g/dL (14.0-18.0); LYMPH# 0.59 X1000 (1.2-3.4); LYMPH% 30.3 % (20.5-51.1); MCH 27.1 PG (27-31); MCHC 31.8 g/dL (33-37); MCV 85.3 FL (81-99); MONO# 0.05 X1000 (0.11-0.59); MONO% 2.6 % (1.7-9.3); NEUT# 1.28 X1000 (1.4-6.5); NEUT% 65.6 % (42.2-75.2); PLT 21 X1000 (130-400); RBC 5.05 XMIL (4.7-6.1); RDW 14.6 % (11.5-14.5); WBC 1.95 X1000 (4.8-10.8)
[2019-05-31] MEDS: ATROVENT NEB INH SCH ×4 (07:32→21:15)
[2019-05-31 08:07] LABS: LYMPHS 45 % (21-51); SEGS 55 % (42-75)
[2019-05-31 08:09] LABS: POIKILOCYTOSIS 2+
[2019-05-31] MEDS: D5W 1,000 ML IV SCH ×2 (08:44→18:26)
[2019-05-31] MEDS: EFFEXOR XR PO SCH (08:47)
[2019-05-31] MEDS: TAMIFLU NG SCH ×2 (08:50→20:35)
[2019-05-31] MEDS: XOPENEX NEB INH SCH ×3 (09:22→21:15)
--- NOTE | 2019-05-31 10:50 | PROVIDER PROGRESS NOTE ---
Progress Note Pulmonary additional note: I have seen and examine the case, reviewed the EMR, labs, latest images and other medical teams notes. Also reviewed the EDUCATION AND DEVELOPMENT MANAGER notes and signed necessary form(s). I have noted changes in condition if any from yesterday and did orders. Please see also signed progress sheet. Prognosis: Guarded for now. Since yesterday, He is febrile this am and remains cytopenic. Will hold weaning trials today for that. Oxygenation is stable on FIO2 50%. I reviewed notes from Dr. Schwartz, and Dr. Pitt. ARDS improving, influenza pneumonia, OD and cytopenia. The was updated and her questions were answered. I asked production staff worker about condition changes and if they have any needs in regard to today conditions. I spent 35 minutes in this process.
--- NOTE | 2019-05-31 10:50 | GASTROENTEROLOGY CONSULTATION ---
DATE: 05/30/2019 REASON FOR CONSULTATION: Abnormal LFTs, hemochromatosis. HISTORY OF PRESENT ILLNESS: Mr. Ky Chairez is a 39-year-old male with past medical history of depression, anxiety, psoriatic arthritis, hemochromatosis, fatty liver, tobacco abuse, prior suicide attempts, who presented on 05/24 with nausea, vomiting, headache, and abdominal pain after taking unknown amount of muscle relaxer, prednisone oxycodone, and ibuprofen intentionally. On presentation, he was found to have a mildly elevated AST 88, BUN of 23, creatinine 2 4, and white count of 14.6. This hospital course was complicated by hypoxic respiratory failure and hypotension thought to be related to possible aspiration pneumonitis. However, he was found to have influenza and is currently being treated for ARDS. He is intubated and has been on broad- spectrum antibiotics. CT on 05/28 shows some pulmonary edema plus or minus pneumonia, bilateral pleural effusions and fluid throughout the stomach and small bowel, concerning for mild enterocolitis. The patient was seen by Hematology and ID for pancytopenia and sepsis respectively. He has been on Lasix for the last several days for concern of volume overload. During this time his sodium has risen up to 158, creatinine to 1.6, AST 448 and ALT of 51 with normal total bilirubin and alkaline phosphatase and INR. Albumin of 2.2, total protein of 5.9 and a CK of 3167. The mother is at bedside and reports that the patient does not take any illegal substances and has a remote history of alcohol abuse, but no alcohol in the last year. He has been followed for hemochromatosis by Dr. Camargo and Dr. Shin. He has had phlebotomy once about 2 years ago. He does not have a history of cirrhosis per her report. Abdominal ultrasound here on 05/27/2018 showed no evidence of acute disease or ascites. REVIEW OF SYSTEMS: Unable to obtain. PAST MEDICAL HISTORY: As per HPI. No other notable history. PAST SURGICAL HISTORY: None. SOCIAL HISTORY: He quit drinking alcohol in July 2018 after a rehab stay, per report. He smokes 1 pack of tobacco daily. No drug use. ALLERGIES: None. HOME MEDICATIONS: Diclofenac, hydroxyzine, oxycodone, pravastatin, prazosin, and venlafaxine ER. FAMILY HISTORY: No family history of GI malignancies. PHYSICAL EXAMINATION: Vital Signs: T-max of 102.7 degrees, heart rate of 93, respiratory rate 21, blood pressure 118/86, O2 saturation 99% on mechanical ventilation with 50% FiO2. General: The patient is intubated and sedated. No acute distress. HEENT: Sclerae anicteric. ET tube in place. OG in place. Some bilious fluid coming from the OG tube in reservoir. Cardiac: Tachycardic. No murmurs. Lungs: Vented breath sounds. Abdomen: Soft, nontender, nondistended. Normoactive bowel sounds. No rebound or guarding. Extremities: No clubbing, cyanosis, or edema. Neuro: He is sedated. LABORATORY: White count of 3.0, hemoglobin 13.5 from 11.3 yesterday, platelets of 27,000. ABG with pH of 7.9, pCO2 is 42, PO2 of 92. Sodium 158, potassium of 3.9, chloride of 128, bicarbonate 26, BUN of 58, creatinine of 1.6, glucose of 103, calcium 1.7, magnesium 3.0, ferritin of 8941. Total bilirubin of 0.34, AST of 48, ALT of 51, alkaline phosphatase of 108, CK is rising at 3161. Troponin is negative. CK MB is negative. ProBNP of 430. Total protein of 5.9, albumin of 2.2, lipase of 159. UA shows protein moderate blood, trace ketones, white cells of 10 to 20, RBCs of 20 to 40. Urine sodium of 24. Hepatitis panel is negative. HIV is negative. IMAGING: Chest x-ray shows bilateral infiltrates with small improvement. CT as discussed above. KUB shows no obstruction, nonspecific abdomen. ASSESSMENT AND PLAN: Mr. Ky Chairez is a 39-year-old gentleman with past medical history of hemochromatosis, psoriatic arthritis, tobacco abuse, anxiety, depression, presented after overdosing on muscle relaxer, prednisone. Ibuprofen and oxycodone. His urine toxin was only positive for oxycodone, negative for Tylenol, alcohol, salicylates. His course has been complicated by acute respiratory failure in the setting of pneumonia and influenza. He is on broad-spectrum antibiotics. He also has notable pancytopenia and hypernatremia, acute kidney injury and rising LFTs in the setting of rhabdomyolysis. His abnormal LFTs are rising during this hospitalization likely suspected from his muscle breakdown and not from his hemochromatosis. He does have a 6 L fluid deficit with the severe hypernatremia, which is being corrected. He is currently on D5 water and Clinimix. His KUB today shows no evidence of bowel obstruction. We will give free water flushes 200 mL every 6 hours and start him on enteral nutrition. He has no history of cirrhosis. He has pancytopenia and his etiology of that is unclear, may be related to medication and/or infection. He was given Neupogen and being treated for neutropenic fever. His ANC was 350 on 05/28. His elevated ferritin is likely related to acute phase reactants. Hemoglobin is 13.5 from 10.72 days ago, likely from heme concentration. Recommend continue trending his liver function tests daily, correcting his fluid balance and hypernatremia and influenza. We will follow with you. Please call with any questions or concerns. # Rhabdomylosis # Abnormal LFTs # Acute hypoxic respiratory failure # Pneumonia # Influenza # INDIRA # Hypernatremia # Pancytopenia # Hemochromatosis # Tobacco abuse cc: MD JUDY Choudhury
--- NOTE | 2019-05-31 10:57 | PROVIDER PROGRESS NOTE ---
Progress Note Dr. Nance Progress Note/Pulmonary and or critical care We appreciated progress of care, Complications, change in diagnosis, and instructions to patient under direct supervision of Dr. Nance. Subjective: We note the level of consciousness, bed (chair) position, family presence (if any), level of lethargy, feeling of symptoms, and changes from baseline condition/symptom. The patient has been intubated and sedated since 05/28/2019 morning. He is on a cooling blanket. He is still having fever and diarrhea. He has a rectal tube now with some dark green liquid inside the drainage bag. He is on diprivan drip and BP within the normal range. FiO2 on 50%. The is at the bedside. Objective: Vital Signs: We reviewed EMR current values for Pulse rate, Blood pressure, Pulse rate, respiratory rate and Pulse oximetry. Also noted other values and trends if present (e.g. I/O, CVP). Vital Signs 05/30/19 14:15 05/30/19 14:30 05/30/19 14:45 Temperature Pulse Rate 112 H 111 H 112 H Respiratory Rate 20 21 18 Blood Pressure 124/83 122/84 122/85 O2 Sat by Pulse Oximetry 97 97 97 05/30/19 15:00 05/30/19 15:15 05/30/19 15:30 Temperature Pulse Rate 115 H 115 H 117 H Respiratory Rate 21 20 21 Blood Pressure 121/85 123/86 128/85 O2 Sat by Pulse Oximetry 97 97 97 05/30/19 15:45 05/30/19 16:00 05/30/19 16:15 Temperature 102.7 F H Pulse Rate 115 H 121 H 120 H Respiratory Rate 21 16 16 Blood Pressure 119/82 118/81 117/85 O2 Sat by Pulse Oximetry 97 99 99 05/30/19 16:30 05/30/19 16:45 05/30/19 17:00 Temperature Pulse Rate 116 H 115 H 109 H Respiratory Rate 16 16 16 Blood Pressure 118/83 118/76 110/77 O2 Sat by Pulse Oximetry 99 100 100 05/30/19 17:15 05/30/19 17:30 05/30/19 17:45 Temperature Pulse Rate 103 H 99 H 100 H Respiratory Rate 16 16 18 Blood Pressure 106/76 110/75 104/76 O2 Sat by Pulse Oximetry 100 94 L 97 05/30/19 18:00 05/30/19 18:15 05/30/19 18:30 Temperature Pulse Rate 97 H 95 H 95 H Respiratory Rate 18 19 20 Blood Pressure 108/81 116/83 108/81 O2 Sat by Pulse Oximetry 98 98 99 05/30/19 18:45 05/30/19 19:00 05/30/19 19:15 Temperature Pulse Rate 95 H 94 H 93 H Respiratory Rate 20 21 18 Blood Pressure 114/82 113/84 111/85 O2 Sat by Pulse Oximetry 99 99 97 05/30/19 19:30 05/30/19 19:45 05/30/19 20:00 Temperature Pulse Rate 93 H 93 H 95 H Respiratory Rate 20 21 17 Blood Pressure 115/86 118/86 110/78 O2 Sat by Pulse Oximetry 99 99 96 05/30/19 20:15 05/30/19 20:30 05/30/19 20:36 Temperature 102.7 F H Pulse Rate 93 H 93 H 93 H Respiratory Rate 20 22 23 Blood Pressure 116/86 118/84 118/84 O2 Sat by Pulse Oximetry 99 99 99 05/30/19 20:45 05/30/19 21:00 05/30/19 21:15 Temperature Pulse Rate 94 H 98 H 98 H Respiratory Rate 22 21 20 Blood Pressure 117/86 116/87 112/84 O2 Sat by Pulse Oximetry 99 98 98 05/30/19 21:30 05/30/19 21:43 05/30/19 21:45 Temperature Pulse Rate 97 H 95 H 96 H Respiratory Rate 20 20 16 Blood Pressure 110/82 108/83 O2 Sat by Pulse Oximetry 98 97 100 05/30/19 22:00 05/30/19 22:15 05/30/19 22:30 Temperature Pulse Rate 100 H 98 H 98 H Respiratory Rate 16 20 21 Blood Pressure 107/82 110/81 109/80 O2 Sat by Pulse Oximetry 97 98 98 05/30/19 22:45 05/30/19 23:00 05/30/19 23:15 Temperature Pulse Rate 102 H 101 H 100 H Respiratory Rate 20 22 23 Blood Pressure 116/81 108/82 111/79 O2 Sat by Pulse Oximetry 98 98 98 05/30/19 23:30 05/30/19 23:45 05/31/19 00:00 Temperature Pulse Rate 97 H 99 H 97 H Respiratory Rate 25 H 22 24 Blood Pressure 117/86 116/84 O2 Sat by Pulse Oximetry 99 98 98 05/31/19 00:16 05/31/19 00:30 05/31/19 00:31 Temperature 101.8 F H Pulse Rate 102 H 93 H 96 H Respiratory Rate 17 26 H 24 Blood Pressure 79/64 119/83 119/83 O2 Sat by Pulse Oximetry 89 L 99 99 05/31/19 00:45 05/31/19 01:00 05/31/19 01:15 Temperature Pulse Rate 92 H 92 H 89 Respiratory Rate 23 23 23 Blood Pressure 127/87 130/89 131/92 O2 Sat by Pulse Oximetry 98 98 99 05/31/19 01:31 05/31/19 01:45 05/31/19 02:00 Temperature 100.5 F H Pulse Rate 96 H 95 H 91 H Respiratory Rate 29 H 50 H 22 Blood Pressure 114/92 146/116 129/86 O2 Sat by Pulse Oximetry 94 L 97 97 05/31/19 02:01 05/31/19 02:15 05/31/19 02:31 Temperature Pulse Rate 91 H 90 89 Respiratory Rate 22 24 23 Blood Pressure 129/86 132/87 127/84 O2 Sat by Pulse Oximetry 97 98 99 05/31/19 02:32 05/31/19 02:45 05/31/19 03:01 Temperature Pulse Rate 89 89 86 Respiratory Rate 25 H 22 22 Blood Pressure 124/87 128/90 O2 Sat by Pulse Oximetry 99 99 100 05/31/19 03:15 05/31/19 03:30 05/31/19 03:45 Temperature Pulse Rate 86 86 83 Respiratory Rate 23 25 H 24 Blood Pressure 124/85 116/86 124/83 O2 Sat by Pulse Oximetry 99 97 99 05/31/19 04:00 05/31/19 04:02 05/31/19 04:16 Temperature Pulse Rate 83 85 82 Respiratory Rate 29 H 29 H 25 H Blood Pressure 128/86 117/84 O2 Sat by Pulse Oximetry 100 100 98 05/31/19 04:30 05/31/19 04:45 05/31/19 05:00 Temperature 98.7 F Pulse Rate 81 79 77 Respiratory Rate 23 19 21 Blood Pressure 116/85 108/81 112/80 O2 Sat by Pulse Oximetry 100 99 100 05/31/19 05:15 05/31/19 05:30 05/31/19 05:45 Temperature Pulse Rate 76 76 76 Respiratory Rate 24 20 21 Blood Pressure 115/85 111/82 117/81 O2 Sat by Pulse Oximetry 100 100 99 05/31/19 06:00 05/31/19 06:15 05/31/19 06:30 Temperature Pulse Rate 78 79 80 Respiratory Rate 21 22 24 Blood Pressure 118/83 116/81 121/86 O2 Sat by Pulse Oximetry 99 99 100 05/31/19 06:45 05/31/19 07:00 05/31/19 07:15 Temperature Pulse Rate 82 85 85 Respiratory Rate 23 23 24 Blood Pressure 114/88 113/84 125/86 O2 Sat by Pulse Oximetry 99 98 100 05/31/19 07:30 05/31/19 07:33 05/31/19 07:40 Temperature 99.5 F Pulse Rate 88 84 Respiratory Rate 23 22 Blood Pressure 125/86 O2 Sat by Pulse Oximetry 99 100 05/31/19 07:45 05/31/19 08:00 05/31/19 08:15 Temperature Pulse Rate 97 H 99 H 100 H Respiratory Rate 23 28 H 28 H Blood Pressure 116/82 129/82 123/84 O2 Sat by Pulse Oximetry 99 100 97 05/31/19 08:31 05/31/19 08:45 05/31/19 09:00 Temperature Pulse Rate 100 H 101 H 99 H Respiratory Rate 25 H 25 H 22 Blood Pressure 121/82 118/91 110/81 O2 Sat by Pulse Oximetry 100 100 99 05/31/19 09:16 05/31/19 09:24 05/31/19 09:31 Temperature Pulse Rate 98 H 98 H 98 H Respiratory Rate 20 16 19 Blood Pressure 113/81 113/83 O2 Sat by Pulse Oximetry 98 100 05/31/19 09:46 05/31/19 10:00 05/31/19 10:16 Temperature Pulse Rate 111 H 110 H 109 H Respiratory Rate 16 20 18 Blood Pressure 117/80 113/82 118/87 O2 Sat by Pulse Oximetry 100 100 100 05/31/19 10:31 05/31/19 10:46 05/31/19 11:00 Temperature 99.9 F H Pulse Rate 108 H 107 H Respiratory Rate 16 17 Blood Pressure 114/87 112/86 O2 Sat by Pulse Oximetry 100 100 05/31/19 11:01 05/31/19 11:16 05/31/19 11:31 Temperature Pulse Rate 108 H 111 H 107 H Respiratory Rate 20 23 22 Blood Pressure 114/76 116/79 115/87 O2 Sat by Pulse Oximetry 99 99 99 05/31/19 11:46 05/31/19 12:00 05/31/19 12:16 Temperature Pulse Rate 106 H 105 H 103 H Respiratory Rate 23 22 23 Blood Pressure 111/81 120/82 118/77 O2 Sat by Pulse Oximetry 99 99 99 05/31/19 12:34 05/31/19 12:46 05/31/19 13:01 Temperature Pulse Rate 102 H 101 H 102 H Respiratory Rate 22 23 24 Blood Pressure 112/80 134/83 118/84 O2 Sat by Pulse Oximetry 98 100 100 05/31/19 13:16 05/31/19 13:31 05/31/19 13:46 Temperature Pulse Rate 102 H 103 H 103 H Respiratory Rate 23 24 25 H Blood Pressure 118/87 118/88 118/89 O2 Sat by Pulse Oximetry 100 100 97 05/31/19 14:00 Temperature Pulse Rate 103 H Respiratory Rate 24 Blood Pressure 123/88 O2 Sat by Pulse Oximetry 97 Intake & Output 05/30/19 05/31/19 05/31/19 19:59 07:59 19:59 Intake Total 716 / 3688 2972 / 3688 1646 / 1646 Output Total 650 / 2965 2315 / 2965 950 / 950 Balance 66 / 723 657 / 723 696 / 696 Intake: Intake, IV Amount 320 / 1840 1520 / 1840 800 / 800 Intake, IVPB 50 / 350 300 / 350 50 / 50 Intake, IV Diprivan 146 / 438 292 / 438 146 / 146 Intake, TPN/PPN Amount 200 / 800 600 / 800 400 / 400 Intake, Tube Feeding Amount / 20 Intake, Tube Irrigant Amount 260 / 260 230 / 230 Output: Output, Urine Page Amount 600 / 1865 1265 / 1865 700 / 700 Output, Fecal Device 1000 / 1000 100 / 100 Output, NG Tube 50 / 100 50 / 100 150 / 150 Other: NG/Feeding Tube Residual Check Yes & Amount Number of Bowel Movements 2 Bowel Movement Color and Liquid Liquid Character Green Brown Physical Examination: General: Lying in bed with no acute distress noted. HEENT: Trachea midline. ETT in place. Mucus pink and slightly dry. Chest: Mechanically ventilated. Symmetrical excursion. Auscultation reveals diminished breathing sounds bilaterally and early inspiratory crackles LLL. CVS: Regular rate and rhythm. Sinus tachycardia. Abdomen: Soft. Nontender. Bowel sounds present in all 4 quadrants. Mildly distended. Extremities: No pedal edema. Neuro: Sedated. Labs and Radiology: Reviewed available labs and radiology values available at time of EMR review. Laboratory Results 05/28/19 05/28/19 05/31/19 13:00 13:59 04:35 WBC RBC Hgb Hct MCV MCH MCHC RDW Std Deviation Plt Count MPV Immature Gran % (Auto) Neut % (Auto) Lymph % (Auto) [place] % (Auto) Eos % (Auto) Baso % (Auto) Immature Gran # (Auto) Neut # (Auto) Lymph # (Auto) [place] # (Auto) Eos # (Auto) Baso # (Auto) Segmented Neutrophils Lymphocytes Poikilocytosis Specimen Type ARTERIAL Sample Site R RADIAL pH 7.37 pCO2 37 pO2 101 H HCO3 22.2 Base Excess -3.5 L Oxyhemoglobin 96.9 ABG O2 Sat (Calculated) 16.2 ABG O2 Saturation 99.2 ABG Carboxyhemoglobin 1.50 ABG Methemoglobin 0.8 Luis Test YES A-a O2 Difference 209.0 Total Hemoglobin 11.8 Lactate 1.60 Blood Gas Modality VENTILATOR Spontaneous Rate 16 FiO2 % 50.0 Tidal Volume 600 PEEP 10.0 Sodium Potassium Chloride Carbon Dioxide Anion Gap BUN Creatinine Estimated GFR/1.73 m2 BUN/Creatinine Ratio Glucose Calculated Osmolality Calcium Magnesium Total Bilirubin AST ALT Alkaline Phosphatase Creatine Kinase Total Protein Albumin Globulin Albumin/Globulin Ratio Procalcitonin SEE COMMENTS Miscellaneous Test Cancelled 05/31/19 05/31/19 05/31/19 04:40 04:40 04:40 WBC 1.95 L RBC 5.05 Hgb 13.7 L Hct 43.1 MCV 85.3 MCH 27.1 MCHC 31.8 L RDW Std Deviation 14.6 H Plt Count 21 L* MPV Not Reportable Immature Gran % (Auto) 0.0 Neut % (Auto) 65.6 Lymph % (Auto) 30.3 [place] % (Auto) 2.6 Eos % (Auto) 0.0 Baso % (Auto) 1.5 H Immature Gran # (Auto) 0.00 Neut # (Auto) 1.28 L Lymph # (Auto) 0.59 L [place] # (Auto) 0.05 L Eos # (Auto) 0.00 Baso # (Auto) 0.03 Segmented Neutrophils 55 Lymphocytes 45 Poikilocytosis 2+ Specimen Type Sample Site pH pCO2 pO2 HCO3 Base Excess Oxyhemoglobin ABG O2 Sat (Calculated) ABG O2 Saturation ABG Carboxyhemoglobin ABG Methemoglobin Luis Test A-a O2 Difference Total Hemoglobin Lactate Blood Gas Modality Spontaneous Rate FiO2 % Tidal Volume PEEP Sodium 153 H Potassium 3.9 Chloride 118 H Carbon Dioxide 20 L Anion Gap 15 BUN 35 H Creatinine 0.9 Estimated GFR/1.73 m2 > 60 BUN/Creatinine Ratio 39 Glucose 172 H D Calculated Osmolality 316 Calcium 7.7 L Magnesium 2.3 Total Bilirubin 0.30 AST 360 H ALT 27 Alkaline Phosphatase 105 Creatine Kinase 3790 H Total Protein 5.6 L Albumin 1.9 L Globulin 3.7 Albumin/Globulin Ratio 0.[address] Nance evaluated and additional note below. Evaluation time in minutes: 33 minutes. Assessment: Acute respiratory failure. Intubated on 05/28/2019. Pneumonia with b/l pleural effusions Pancytopenia with neutropenic fever. Slowly improving. Pulmonary edema with elevated proBNP. Improving. D.O. on presentation, intentional. Flu A ARF Plan: Continue current treatment and supportive care per admitting and other teams on the case. Vent Weaning. Antibiotics and bronchodilators. Appropriate DVT and GI prophylaxis. Input was appreciated from Admitting MD and other teams on the case. See additional notes by Dr. Nance.
--- NOTE | 2019-05-31 13:06 | INFECTIOUS DISEASE PROGRESS NO ---
DATE: 05/31/2019 PRESENT ILLNESS: The patient has influenza A and he may have developed a bacterial super infection in his lungs. The patient also may have developed Clostridium difficile diarrhea. MEDICATIONS: The patient has been on Tamiflu for 2 days, meropenem for 2 days, and micafungin for 3 days. PHYSICAL EXAMINATION: Vital Signs: The maximum temperature was 103 degrees, now it is 99.5, pulse 97, respirations 23, blood pressure 116/82. General: This is an ill-appearing young male. He is intubated and sedated. Head/eyes/ears/nose/throat: He has an orotracheal tube and orogastric tube in place. Also there is a smaller Y-tube present. Neck: No stiffness to passive movement of the neck. Lungs: Clear to auscultation. Cardiovascular: Regular heart rate. Abdomen: Soft and did not appear to be tender. Neurologic: The patient is sedated. He does not respond to verbal stimuli. He does not have a tremor. Integument: No rash noted. LAB AND X-RAY: Chest x-ray shows improved pulmonary edema. HIV antibodies negative. Hepatitis profile is nonreactive. Stool for Clostridium difficile is pending. Beta glucan test was canceled. Procalcitonin is 10, which translates into that the patient is very likely to have pneumonia. The patient's CBC shows a white count of 1950, hemoglobin 13.7, and platelet count 21,000. Blood gases show a pH of 7.37, a PO2 of 101, a pCO2 of 37. CK is 3790, AST is 360. Amylase is 118 and lipase is 159. ASSESSMENT AND PLAN: Patient has influenza and very likely has a superimposed bacterial infection. His lipase and amylase are elevated, and he may well have pancreatitis also. My plan now is to continue meropenem and micafungin. Also, I have asked the microbiology laboratory to notify me of the results of the patient's stool for Clostridium difficile toxin and antigen. Stool for Clostridium difficile is pending. COMORBIDITIES: Psoriatic arthritis, hemochromatosis, anxiety, depression and hepatic steatosis. cc: MD Jose Negron MD
--- NOTE | 2019-05-31 13:14 | NEPHROLOGY PROGRESS NOTE ---
DATE: 05/31/2019 TIME SEEN: 0645. SUBJECTIVE: Mr. Chairez is resting quietly on the ventilator. He is ventilator dependent with sedation on board. IMAGING AND LABORATORY DATA: His sodium is down to 153, his potassium is 3.9, chloride is 118, CO2 is 20, his BUN is 35, creatinine is down to 0.9, glucose of 172. The patient's anion gap is at 15. Calcium is 7.7. Magnesium 2.3. Albumin is 1.9. White count 1.95, hemoglobin 13.7, hematocrit is 43.1, with a platelet count down to 21,000 from 27,000. The patient had a Clostridium difficile test that is currently pending. Urine culture shows no growth. Stool culture shows no growth. Chest x-ray this a.m. shows minimal improvement with pulmonary edema. Remains ventilator dependent. NG tube remains to low intermittent suction. OBJECTIVE: Vital Signs: Temperature 98.7 degrees, blood pressure 114/88, heart rate 82, respirations are 33. He remains on 50% FiO2. His last recorded saturation is 100%. He has had 2292 in, 1265 out, with 100 mL of that per NG tube to low intermittent suction. General: This is a 39-year-old, white male. He is currently sedated, ventilator dependent, resting quietly in bed in no acute distress. Skin: Warm and dry. HEENT: Normocephalic, atraumatic. Conjunctiva is pink, though sclerae slightly erythematous. Neck: Supple. Trachea midline. No evidence of JVD. Cardiovascular: Regular rate and rhythm. No appreciable murmur or gallop. Lungs: Continues with scattered crackles bilaterally. Diminished to the posterior bases. Remains on O2 support. Abdomen: Large, round, soft, nontender. Positive bowel sounds. Decreased, hypoactive on auscultation. NG tube remains to low intermittent suction. Green bile noted to tubing. Genitourinary: Page catheter is in place. Adequate urine output has been documented. Integumentary: No rashes or lesions evident upon inspection anteriorly only. Neurological: As mentioned above. ASSESSMENT AND PLAN: 1. Acute kidney injury and hypernatremia in the context of aggressive diuretic therapy and negative fluid balance. The patient is currently on D5W at 50 mL an hour, with calculation of a 5-liter free water fluid deficit. His BUN and creatinine have responded nicely, BUN of 35 with a creatinine of 0.9. Adequate urine output at this time. 2. Electrolytes. The patient's sodium has improved to 153. He continues on D5W at 50 mL an hour. This is currently also being followed by Dr. Marmolejo. He does remain on Clinimix, which is hypotonic. 3. Acid-base balance. This is acceptable. 4. Anemia. This is in target. 5. Respiratory failure. This is currently followed by the primary care, and Dr. Pitt for antibiotics that are renally dosed. 6. Sepsis. Again, as mentioned above, followed by Dr. Pitt. I would like to thank you for allowing us to follow with this patient. Dictated by CHRISTIAN Harris for Duy López MD Face to face encounter, data reviewed, discussed with Monty Humphrey on 05/31/19. I agree with the above assessment and plan of care. cc: CHRISTIAN Harris MD Siddharth Patel, MD [facility]ITAL[facility]ha
--- NOTE | 2019-05-31 14:56 | GASTROENTEROLOGY PROGRESS NOTE ---
DATE: 05/31/2019 SUBJECTIVE: Mr. Chairez is a 39-year-old male resting in bed. He is on a mechanical ventilator, sedated and unable to assess patient. Family is at the bedside. OBJECTIVE: Vital Signs: Temperature is 99.9 degrees, pulse is 102, respirations 24, blood pressure is 118/84, oxygen saturation 100% on mechanical ventilator. The patient's weight is 167 pounds. BMI is 23.3 kg/m2. General: On mechanical ventilator, sedated. Unable to assess the patient. HEENT: Pale conjunctivae. No icterus. Endotracheal tube in place. OG tube in place. Neck: Supple. Lungs: Clear to auscultation. Cardiovascular: Patient is tachycardic. Abdomen: Soft, nontender, nondistended. Active bowel sounds heard in all 4 quadrants. Extremities: No clubbing, no cyanosis, no edema. Pedal pulses 2+ present bilaterally. Neurologic: The patient is sedated on mechanical ventilator. LABORATORY DATA: WBCs 1.95, RBC 5.05, hemoglobin 13.7, hematocrit is 43.1, platelet count is 21,000. Sodium is 153, potassium is 3.9, chloride is 118, carbon dioxide is 20, anion gap is 15. BUN 35, creatinine is 0.9, glucose is 172, calcium is 7.7, magnesium is 2.3. Total bilirubin is 0.30, AST is 360, ALT is 27, alkaline phosphatase is 105. Urinalysis yesterday showed protein of 200, trace of ketones and moderate blood. IMAGING STUDIES: The patient's abdominal x-ray yesterday showed no evidence of obstruction. The patient's chest x-ray today has shown minimal improved pulmonary edema. IMPRESSION AND PLAN: 1. Elevated liver function tests. 2. Rhabdomyolysis. 3. Acute respiratory failure. ARDS 4. Pneumonia. 5. Influenza. 6. Hypernatremia. 7. Tobacco abuse. 8. Anxiety and depression. 9. Drug overdose PLAN: Mr. Chairez is a 39-year-old male with a history of hemochromatosis, psoriatic arthritis, tobacco abuse, anxiety, depression and overdose of muscle relaxers, prednisone, ibuprofen and oxycodone. GI is following him for his elevated liver function tests. The patient is currently on GI prophylaxis, Protonix 40 mg IV twice a day. He is on a cooling blanket for his high fever. The patient is receiving Ofrimev 1000 mg IV and the patient is also on Tamiflu 75 mg via OG tube twice a day. He is on antibiotic Merrem for his pneumonia. Patient is receiving Clinimix 50 mL for his nutrition, and he is on IV fluids D5 1000 mL at 100 mL/hour. We will continue to monitor patient's liver function test and follow the plan of care per PCP. This plan was discussed with Dr. Marmolejo. Please call us for any further questions or concerns. Dictated by CHRISTIAN Medina for Santiago Marmolejo MD cc: Jose Newberry MD Physician Attestation I have seen and examined the patient. I have discussed and reviewed the note by Natividad GONZALES and agree with findings and plan as documented. His LFTs are elevated secondary to rhabdo, which are improving. He has not history or findings on exam or labs to suggest cirrhosis. Known hemachromatosis. Will sign off. Please call with questions. MTDD
[2019-05-31] MEDS: OFIRMEV 1000 MG/ISOTONIC SOLN 1,000 MG/100 ML BOTTLE IV PRN ×2 (15:10→23:01)
[2019-05-31] MEDS: MYCAMINE 100 MG in NS 100 ML IV SCH (17:27)
[2019-05-31] MEDS: PRAVACHOL PO SCH (20:34)
--- NOTE | 2019-05-31 22:19 | PROGRESS NOTE ---
DATE: 05/31/2019 SUBJECTIVE: The patient remains sedated on the ventilator. The patient has been febrile all night. OBJECTIVE: T-max 102.7 degrees, blood pressure 106/69, heart rate 91, respirations 21, O2 saturation 97% on mechanical ventilator. Intake 1.6 L, output 950.General: This is a chronically ill, middle-aged male lying in bed in no acute distress. Heart: S1, S2 normal. Tachycardic. Lungs: Coarse breath sounds bilaterally. Abdomen: Positive bowel sounds. Soft, nontender, nondistended. Extremities: No edema, no cyanosis. Neurologic: The patient is sedated on the ventilator. LABORATORY DATA: White blood cell count 1.9, hemoglobin 13, hematocrit 43, platelets 21,000. Sodium 153, potassium 3.9, chloride 118, CO2 is 20, BUN 35, creatinine 0.9, glucose 172, calcium 7.7, total bilirubin 0.3, AST 360, ALT 27, alkaline phosphatase 105. CK 3790. DIAGNOSTIC DATA: Chest x-ray shows diffuse interstitial pulmonary edema. ASSESSMENT AND PLAN: 1. Acute hypoxemic respiratory failure. The patient has severe pneumonia and possibly ARDS. 2. Bilateral lobe pneumonia. Continue with broad-spectrum antibiotics and antifungal therapy as directed by Dr. Pitt. Ventilatory management as per the director of dementia operations. 3. Sepsis. Continue with antibiotics. The blood cultures remain negative at this time. 4. Influenza A. Continue on Tamiflu. 5. Acute kidney injury. Resolved. The patient's urine output is adequate. 6. Rhabdomyolysis. The CK continues to rise. We will continue with intravenous fluids. 7. Hypernatremia. Slightly improved today. We will continue on the current fluid regimen. 8. Pancytopenia. We will continue to monitor the counts closely and transfuse as necessary. Hematology is following. 9. Hemochromatosis. Aware. 10. Intentional drug overdose. Aware. The patient will need a psychiatric evaluation once he is medically stable. 11. Elevated liver function tests. Likely secondary to rhabdomyolysis. Slowly improving. 12. Severe protein-calorie malnutrition. The patient has been started on tube feeds today. 13. Disposition. The patient is a Full Code. The patient remains critically ill with a high risk of mortality. cc: MD Jose Yap MD MTDD
[2019-06-01] MEDS: DIPRIVAN 1% 1,000 MG/100 ML BOTTLE IV SCH ×5 (01:52→14:29)
[2019-06-01] MEDS: SODIUM CHLORIDE 0.9% INJ SCH ×2 (03:51→16:29)
[2019-06-01] MEDS: PROTONIX IV SCH ×2 (03:51→16:29)
[2019-06-01] MEDS: D5W 1,000 ML IV SCH ×3 (04:30→16:29)
[2019-06-01 04:48] LABS: ALLEN TEST YES; BE -2.7 mmoll (-3.0-3.0); BLOOD TYPE ARTERIAL; HCO3-(ACT) 22.7 mmoll (20.0-26.0); METHB 0.5 % (0.0-1.5); O2(CT) 15.3 mL/dL (15.0-23.0); O2HB 93.1 % (95.0-99.0); PCO2(98.6) 40 mmHg (35-45); PO2(98.6) 63 mmHg (60-100); SAMPLE BLOOD; SAO2 96.5 % (95.0-100.0); SRATE 16 BPM; THB 11.7 g/dL (11.5-17.4); TVOL 600 mL; pH(98.6) 7.36 (7.35-7.45)
[2019-06-01 04:49] LABS: MODALITY VENTILATOR
[2019-06-01] MEDS: MORPHINE IV PRN ×5 (05:22→20:39)
[2019-06-01 06:03] LABS: EOS# 0.02 X1000 (0.0-0.7); EOS% 1.3 % (0.0-10.0); HEMATOCRIT 37.7 % (42.0-52.0); HEMOGLOBIN 12.1 g/dL (14.0-18.0); IMM GRAN# 0.04 X1000 (0.0-0.04); IMM GRAN% 2.6 % (0.0-0.5); INR 0.95; LYMPH# 0.62 X1000 (1.2-3.4); LYMPH% 40.8 % (20.5-51.1); MCH 26.9 PG (27-31); MCHC 32.1 g/dL (33-37); MCV 83.8 FL (81-99); MONO# 0.03 X1000 (0.11-0.59); NEUT# 0.81 X1000 (1.4-6.5); NEUT% 53.3 % (42.2-75.2); PROTIME 12.8 Seconds (11.0-16.0); RDW 14.2 % (11.5-14.5); WBC 1.52 X1000 (4.8-10.8)
[2019-06-01 06:05] LABS: PLT 22 X1000 (130-400)
--- NOTE | 2019-06-01 06:18 | Diag Imaging Result Doc PS360 ---
EXAM: CHEST-PORTABLE HISTORY: Vent pt TECHNIQUE: Single view COMPARISON: 05/31/2019 FINDINGS: No change in the endotracheal tube or nasogastric tube. There are bilateral infiltrates. No cardiomegaly. No pleural effusions identified. The overall appearance is similar to the prior exam. IMPRESSION: Stable chest Electronically signed by Martin Milelr 06/01/2019 6:16 AM
[2019-06-01 06:31] LABS: AGAP 14; ALB/GLOB RATIO 0.5; ALBUMIN 1.6 g/dL (3.5-5.0); ALKALINE PHOSPHATASE 83 U/L (32-122); BUN 25 mg/dL (8-22); CALCIUM 7.4 mg/dL (8.8-10.2); CHLORIDE 109 mmol/L (98-107); CK TOTAL 1936 U/L (24-204); COSMO 300; CREATININE 0.6 mg/dL (0.7-1.2); ESTIMATED GFR > 60; GLUCOSE 184 mg/dL (70-104); POTASSIUM 3.7 mmol/L (3.5-5.1); SODIUM 146 mmol/L (136-145); TCO2 23 mmol/L (25-35); TOTAL BILIRUBIN 0.25 mg/dL (0.20-1.00); TOTAL PROTEIN 4.8 g/dL (6.3-8.3)
[2019-06-01 06:40] LABS: MAGNESIUM 2.2 mg/dL (1.5-2.7)
[2019-06-01 06:46] LABS: GOT 212 U/L (10-34); GPT 24 U/L (10-44)
[2019-06-01 07:32] LABS: PREALBUMIN 16.9 mg/dL (20-40)
--- NOTE | 2019-06-01 07:46 | PROVIDER PROGRESS NOTE ---
Progress Note Pulmonary additional note: I have seen and examine the case, reviewed the EMR, labs, latest images and other medical teams notes. Also reviewed the INFORMATION ASSURANCE SPECIALIST notes and signed necessary form(s). I have noted changes in condition if any from yesterday and did orders. Please see also signed progress sheet. Since yesterday, He this remains cytopenicis and isafebrile . Weaning trials today. Oxygenation is stable on FIO2 40% and PEEP of 10 cm. Prognosis: Guarded for now. I reviewed notes from Dr. Schwartz, Hematology, GI and ID. ARDS improving, influenza pneumonia, OD and cytopenia. Hemochromatosis and psoriatic arthritis was recently on immunomodulators. Rhabdomyolysis with improving CK. spoke with his about todays updates. Reduced PEEP to 5 cm and was tolerated. I asked staffing mgr about condition changes and if they have any needs in regard to today conditions. I spent 30 minutes in this process.
[2019-06-01] MEDS ORDERED: NS 50 ML ONE ×2 (07:58→07:59)
[2019-06-01] MEDS: MERREM 1 GM in NS 50 ML IV SCH ×2 (08:09→16:29)
[2019-06-01] MEDS: TAMIFLU NG SCH ×2 (08:09→20:40)
[2019-06-01] MEDS: EFFEXOR XR PO SCH (08:14)
[2019-06-01] MEDS ORDERED: GRANIX SUBQ ONE (09:22)
[2019-06-01] MEDS: XOPENEX NEB INH SCH ×3 (09:45→21:55)
[2019-06-01] MEDS: ATROVENT NEB INH SCH ×3 (09:45→21:55)
[2019-06-01] MEDS ORDERED: NS 500 ML IV ONE (10:23)
[2019-06-01] MEDS: REGLAN IV SCH ×3 (11:24→23:26)
--- NOTE | 2019-06-01 12:44 | PROVIDER PROGRESS NOTE ---
Progress Note Dr. Nance Progress Note/Pulmonary and or critical care We appreciated progress of care, Complications, change in diagnosis, and instructions to patient under direct supervision of Dr. Nance. Subjective: We note the level of consciousness, bed (chair) position, family presence (if any), level of lethargy, feeling of symptoms, and changes from baseline condition/symptom. The patient has been intubated and sedated since 05/28/2019 morning. He still has diarrhea, but no fever at this time. He is receiving platelet transfusion. RR up to 40s during sedation vocation. PICC line placement pending. FiO2 on 40%. PEEP decreased from [address] Nance. The is at the bedside. Objective: Vital Signs: We reviewed EMR current values for Pulse rate, Blood pressure, Pulse rate, respiratory rate and Pulse oximetry. Also noted other values and trends if present (e.g. I/O, CVP). Vital Signs 05/31/19 17:16 05/31/19 17:31 05/31/19 17:46 Temperature Pulse Rate 94 H 93 H 91 H Respiratory Rate 21 21 21 Blood Pressure 105/65 104/67 106/69 O2 Sat by Pulse Oximetry 97 96 97 05/31/19 18:00 05/31/19 18:16 05/31/19 18:32 Temperature Pulse Rate 90 90 94 H Respiratory Rate 21 21 16 Blood Pressure 106/72 112/72 97/66 O2 Sat by Pulse Oximetry 97 96 98 05/31/19 18:46 05/31/19 19:01 05/31/19 19:16 Temperature Pulse Rate 95 H 94 H 94 H Respiratory Rate 23 22 22 Blood Pressure 93/58 101/64 114/76 O2 Sat by Pulse Oximetry 94 L 96 96 05/31/19 19:31 05/31/19 19:45 05/31/19 19:46 Temperature Pulse Rate 94 H 93 H 93 H Respiratory Rate 22 22 22 Blood Pressure 112/73 115/76 O2 Sat by Pulse Oximetry 96 97 96 05/31/19 20:01 05/31/19 20:16 05/31/19 20:31 Temperature Pulse Rate 96 H 98 H 99 H Respiratory Rate 24 22 23 Blood Pressure 115/78 122/85 116/85 O2 Sat by Pulse Oximetry 96 96 96 05/31/19 20:33 05/31/19 20:46 05/31/19 21:01 Temperature 99.7 F H Pulse Rate 99 H 97 H 101 H Respiratory Rate 23 24 25 H Blood Pressure 116/85 126/83 120/84 O2 Sat by Pulse Oximetry 96 98 96 05/31/19 21:15 05/31/19 21:16 05/31/19 21:31 Temperature Pulse Rate 112 H 114 H Respiratory Rate 26 H 30 H Blood Pressure 113/81 124/75 O2 Sat by Pulse Oximetry 97 71 L 96 05/31/19 21:46 05/31/19 22:00 05/31/19 22:01 Temperature Pulse Rate 112 H 109 H 108 H Respiratory Rate 45 H 30 H 37 H Blood Pressure 124/75 129/84 O2 Sat by Pulse Oximetry 95 95 96 05/31/19 22:16 05/31/19 22:31 05/31/19 22:46 Temperature Pulse Rate 109 H 108 H 106 H Respiratory Rate 32 H 50 H 41 H Blood Pressure 134/86 132/87 123/80 O2 Sat by Pulse Oximetry 95 96 93 L 05/31/19 23:01 05/31/19 23:03 05/31/19 23:16 Temperature 102.0 F H Pulse Rate 108 H 109 H 108 H Respiratory Rate 27 H 28 H 23 Blood Pressure 118/78 118/78 127/83 O2 Sat by Pulse Oximetry 96 96 96 05/31/19 23:25 05/31/19 23:31 05/31/19 23:46 Temperature Pulse Rate 106 H 102 H Respiratory Rate 23 22 Blood Pressure 116/79 118/72 O2 Sat by Pulse Oximetry 97 96 95 06/01/19 00:01 06/01/19 00:16 06/01/19 00:31 Temperature 99.9 F H Pulse Rate 100 H 99 H 99 H Respiratory Rate 21 22 23 Blood Pressure 120/75 125/75 120/79 O2 Sat by Pulse Oximetry 95 95 100 06/01/19 00:46 06/01/19 01:01 06/01/19 01:16 Temperature Pulse Rate 103 H 100 H 96 H Respiratory Rate 23 20 22 Blood Pressure 126/74 114/81 115/78 O2 Sat by Pulse Oximetry 94 L 94 L 94 L 06/01/19 01:31 06/01/19 01:46 06/01/19 01:55 Temperature 98.3 F Pulse Rate 93 H 91 H 93 H Respiratory Rate 21 21 21 Blood Pressure 113/75 128/79 128/79 O2 Sat by Pulse Oximetry 95 95 92 L 06/01/19 02:01 06/01/19 02:16 06/01/19 02:31 Temperature Pulse Rate 91 H 91 H 87 Respiratory Rate 22 32 H 23 Blood Pressure 120/80 116/79 124/84 O2 Sat by Pulse Oximetry 95 95 95 06/01/19 02:46 06/01/19 03:01 06/01/19 03:16 Temperature Pulse Rate 88 85 82 Respiratory Rate 21 20 18 Blood Pressure 116/77 115/79 103/70 O2 Sat by Pulse Oximetry 95 95 93 L 06/01/19 03:29 06/01/19 03:31 06/01/19 03:33 Temperature Pulse Rate 80 78 Respiratory Rate 19 16 Blood Pressure 99/65 99/65 O2 Sat by Pulse Oximetry 95 94 L 98 06/01/19 03:46 06/01/19 03:53 06/01/19 04:01 Temperature 97.0 F L Pulse Rate 82 82 80 Respiratory Rate 18 18 20 Blood Pressure 103/70 103/70 99/63 O2 Sat by Pulse Oximetry 93 L 94 L 94 L 06/01/19 04:16 06/01/19 04:31 06/01/19 04:46 Temperature Pulse Rate 75 76 77 Respiratory Rate 20 18 21 Blood Pressure 98/62 105/66 108/75 O2 Sat by Pulse Oximetry 94 L 95 95 06/01/19 05:01 06/01/19 05:32 06/01/19 05:46 Temperature Pulse Rate 83 87 88 Respiratory Rate 25 H 23 23 Blood Pressure 109/82 100/60 103/66 O2 Sat by Pulse Oximetry 93 L 92 L 06/01/19 06:01 06/01/19 06:16 06/01/19 06:31 Temperature Pulse Rate 86 90 90 Respiratory Rate 23 23 23 Blood Pressure 104/73 101/62 102/64 O2 Sat by Pulse Oximetry 88 L 92 L 91 L 06/01/19 06:46 06/01/19 06:57 06/01/19 06:59 Temperature Pulse Rate 93 H 94 H 95 H Respiratory Rate 23 24 24 Blood Pressure 94/61 94/61 91/64 O2 Sat by Pulse Oximetry 91 L 92 L 95 06/01/19 07:14 06/01/19 07:29 06/01/19 07:39 Temperature Pulse Rate 95 H 98 H 97 H Respiratory Rate 24 23 24 Blood Pressure 98/66 107/71 O2 Sat by Pulse Oximetry 93 L 94 L 94 L 06/01/19 07:44 06/01/19 07:45 06/01/19 08:00 Temperature 99.6 F Pulse Rate 102 H 102 H Respiratory Rate 25 H 35 H Blood Pressure 106/76 108/73 O2 Sat by Pulse Oximetry 95 96 06/01/19 08:14 06/01/19 08:29 06/01/19 08:44 Temperature Pulse Rate 101 H 102 H 99 H Respiratory Rate 27 H 27 H 24 Blood Pressure 104/74 105/72 107/68 O2 Sat by Pulse Oximetry 96 96 96 06/01/19 08:59 06/01/19 09:14 06/01/19 09:29 Temperature Pulse Rate 100 H 98 H 92 H Respiratory Rate 22 22 22 Blood Pressure 108/73 102/72 102/69 O2 Sat by Pulse Oximetry 96 96 96 06/01/19 09:46 06/01/19 09:47 06/01/19 10:01 Temperature Pulse Rate 86 89 91 H Respiratory Rate 21 16 20 Blood Pressure 89/68 97/64 O2 Sat by Pulse Oximetry 97 100 100 06/01/19 10:14 06/01/19 10:29 06/01/19 10:59 Temperature Pulse Rate 92 H 84 94 H Respiratory Rate 24 24 26 H Blood Pressure 98/65 80/50 92/62 O2 Sat by Pulse Oximetry 97 95 95 06/01/19 11:21 06/01/19 11:29 06/01/19 11:30 Temperature 97.0 F L Pulse Rate 96 H 99 H Respiratory Rate 28 H 28 H Blood Pressure 100/70 99/70 O2 Sat by Pulse Oximetry 93 L 93 L 06/01/19 11:44 06/01/19 12:01 06/01/19 12:14 Temperature Pulse Rate 99 H 100 H 98 H Respiratory Rate 26 H 26 H 24 Blood Pressure 107/76 101/68 102/67 O2 Sat by Pulse Oximetry 94 L 95 95 06/01/19 12:30 06/01/19 12:45 06/01/19 13:00 Temperature 99.3 F 99.9 F H 99.9 F H Pulse Rate 101 H 100 H 100 H Respiratory Rate 26 H 28 H 26 H Blood Pressure 103/66 101/63 108/70 O2 Sat by Pulse Oximetry 93 L 92 L 91 L 06/01/19 13:30 06/01/19 13:40 06/01/19 13:45 Temperature 99.9 F H 99.9 F H Pulse Rate 99 H 107 H 109 H Respiratory Rate 25 H 26 H 26 H Blood Pressure 101/72 105/61 109/69 O2 Sat by Pulse Oximetry 90 L 79 L 86 L 06/01/19 14:00 06/01/19 14:14 06/01/19 14:29 Temperature Pulse Rate 102 H 100 H 99 H Respiratory Rate 28 H 27 H 27 H Blood Pressure 112/77 117/79 107/70 O2 Sat by Pulse Oximetry 100 100 100 06/01/19 14:44 06/01/19 14:59 06/01/19 15:14 Temperature Pulse Rate 96 H 96 H 97 H Respiratory Rate 26 H 27 H 33 H Blood Pressure 110/71 104/68 102/68 O2 Sat by Pulse Oximetry 100 100 100 06/01/19 15:29 06/01/19 15:44 06/01/19 15:59 Temperature Pulse Rate 96 H 100 H 99 H Respiratory Rate 31 H 29 H 42 H Blood Pressure 111/79 111/79 O2 Sat by Pulse Oximetry 100 100 100 06/01/19 16:00 Temperature 99.9 F H Pulse Rate 102 H Respiratory Rate 30 H Blood Pressure 99/57 O2 Sat by Pulse Oximetry 99 Intake & Output 05/31/19 06/01/19 06/01/19 19:59 07:59 19:59 Intake Total 1646 / 5473 3827 / 5473 2159 / 2159 Output Total 950 / 2500 1550 / 2500 775 / 775 Balance 696 / 2973 2277 / 2973 1384 / 1384 Intake: Intake, IV Amount 800 / 2400 1600 / 2400 800 / 800 Intake, IVPB 50 / 450 400 / 450 50 / 50 Intake, IV Diprivan 146 / 473 327 / 473 219 / 219 Intake, Blood Product Amount 1000 / 1000 Pheresis Platelets [id number] Unit 500 / 500 [id number] Pheresis Platelets [id number] Unit 500 / 500 [id number] Intake, TPN/PPN Amount 400 / 1200 800 / 1200 Intake, Tube Feeding Amount 20 / 400 380 / 400 30 / 30 Intake, Tube Irrigant Amount 230 / 550 320 / 550 60 / 60 Output: Output, Urine Page Amount 700 / 2150 1450 / 2150 775 / 775 Output, Fecal Device 100 / 200 100 / 200 Output, NG Tube 150 / 150 Other: NG/Feeding Tube Residual Check Yes Yes Yes & Amount Bowel Movement Color and Liquid Green Character Brown Physical Examination: General: Lying in bed with no acute distress noted. HEENT: Trachea midline. ETT in place. Mucus pink and slightly dry. Chest: Mechanically ventilated. Tachypnea. Symmetrical excursion. Auscultation reveals diminished breathing sounds bilaterally and early inspiratory crackles LLL. CVS: Regular rate and rhythm. Sinus tachycardia. Abdomen: Soft. Bowel sounds present in all 4 quadrants. Mildly distended. Extremities: No pedal edema. Neuro: Sedated. Labs and Radiology: Reviewed available labs and radiology values available at time of EMR review. Laboratory Results 06/01/19 06/01/19 06/01/19 04:20 04:20 04:20 WBC 1.52 L RBC 4.50 L Hgb 12.1 L Hct 37.7 L MCV 83.8 MCH 26.9 L MCHC 32.1 L RDW Std Deviation 14.2 Plt Count 22 L* MPV Not Reportable Immature Gran % (Auto) 2.6 H Neut % (Auto) 53.3 Lymph % (Auto) 40.8 [place] % (Auto) 2.0 Eos % (Auto) 1.3 Baso % (Auto) 0.0 Immature Gran # (Auto) 0.04 Neut # (Auto) 0.81 L Lymph # (Auto) 0.62 L [place] # (Auto) 0.03 L Eos # (Auto) 0.02 Baso # (Auto) 0.00 PT 12.8 INR 0.95 Specimen Type Sample Site pH pCO2 pO2 HCO3 Base Excess Oxyhemoglobin ABG O2 Sat (Calculated) ABG O2 Saturation ABG Carboxyhemoglobin ABG Methemoglobin Luis Test A-a O2 Difference Total Hemoglobin Lactate Blood Gas Modality Vent Mode Spontaneous Rate FiO2 % Tidal Volume PEEP Sodium Potassium Chloride Carbon Dioxide Anion Gap BUN Creatinine Estimated GFR/1.73 m2 BUN/Creatinine Ratio Glucose Calculated Osmolality Calcium Phosphorus 2.0 L Magnesium 2.2 Total Bilirubin AST ALT Alkaline Phosphatase Creatine Kinase Total Protein Albumin Globulin Albumin/Globulin Ratio Prealbumin 16.9 L Blood Type Antibody Screen 06/01/19 06/01/19 06/01/19 04:20 04:40 11:15 WBC RBC Hgb Hct MCV MCH MCHC RDW Std Deviation Plt Count MPV Immature Gran % (Auto) Neut % (Auto) Lymph % (Auto) [place] % (Auto) Eos % (Auto) Baso % (Auto) Immature Gran # (Auto) Neut # (Auto) Lymph # (Auto) [place] # (Auto) Eos # (Auto) Baso # (Auto) PT INR Specimen Type ARTERIAL Sample Site R RADIAL pH 7.36 pCO2 40 pO2 63 HCO3 22.7 Base Excess -2.7 Oxyhemoglobin 93.1 L ABG O2 Sat (Calculated) 15.3 ABG O2 Saturation 96.5 ABG Carboxyhemoglobin 3.00 H ABG Methemoglobin 0.5 Luis Test YES A-a O2 Difference 172.0 Total Hemoglobin 11.7 Lactate 1.80 Blood Gas Modality VENTILATOR Vent Mode A/C Spontaneous Rate 16 FiO2 % 40.0 Tidal Volume 600 PEEP 10.0 Sodium 146 H Potassium 3.7 Chloride 109 H Carbon Dioxide 23 L Anion Gap 14 BUN 25 H Creatinine 0.6 L Estimated GFR/1.73 m2 > 60 BUN/Creatinine Ratio 42 Glucose 184 H Calculated Osmolality 300 Calcium 7.4 L Phosphorus Magnesium Total Bilirubin 0.25 AST 212 H ALT 24 Alkaline Phosphatase 83 Creatine Kinase 1936 H Total Protein 4.8 L Albumin 1.6 L Globulin 3.2 Albumin/Globulin Ratio 0.5 Prealbumin Blood Type A POSITIVE Antibody Screen NEGATIVE 06/01/19 14:00 WBC RBC Hgb Hct MCV MCH MCHC RDW Std Deviation Plt Count MPV Immature Gran % (Auto) Neut % (Auto) Lymph % (Auto) [place] % (Auto) Eos % (Auto) Baso % (Auto) Immature Gran # (Auto) Neut # (Auto) Lymph # (Auto) [place] # (Auto) Eos # (Auto) Baso # (Auto) PT INR Specimen Type ARTERIAL Sample Site R RADIAL pH 7.41 pCO2 40 pO2 383 H HCO3 25.5 Base Excess 0.7 Oxyhemoglobin 97.7 ABG O2 Sat (Calculated) 19.1 ABG O2 Saturation 100.1 H ABG Carboxyhemoglobin 1.50 ABG Methemoglobin 0.8 Luis Test NO A-a O2 Difference 280.0 Total Hemoglobin 13.2 Lactate 2.00 Blood Gas Modality VENTILATOR Vent Mode Spontaneous Rate 16 FiO2 % 100.0 Tidal Volume 600 PEEP 10.0 Sodium Potassium Chloride Carbon Dioxide Anion Gap BUN Creatinine Estimated GFR/1.73 m2 BUN/Creatinine Ratio Glucose Calculated Osmolality Calcium Phosphorus Magnesium Total Bilirubin AST ALT Alkaline Phosphatase Creatine Kinase Total Protein Albumin Globulin Albumin/Globulin Ratio Prealbumin Blood Type Antibody Screen Dr. Nance evaluated and additional note below. Evaluation time in minutes: 34 minutes. Assessment: Acute respiratory failure. Intubated on 05/28/2019. Pneumonia with b/l pleural effusions Pancytopenia with neutropenic fever. Fever improving. Pulmonary edema with elevated proBNP. D.O. on presentation, intentional. Flu A ARF Plan: Continue current treatment and supportive care per admitting and other teams on the case. Vent Weaning holding. Antibiotics and bronchodilators. Appropriate DVT and GI prophylaxis. Input was appreciated from Admitting MD and other teams on the case. See additional notes by Dr. Nance.
[2019-06-01] MEDS ORDERED: NS 250 ML ONE (13:29)
[2019-06-01 14:00] LABS: BE 0.7 mmoll (-3.0-3.0); BLOOD TYPE ARTERIAL; HCO3-(ACT) 25.5 mmoll (20.0-26.0); METHB 0.8 % (0.0-1.5); MODALITY VENTILATOR; O2(CT) 19.1 mL/dL (15.0-23.0); O2HB 97.7 % (95.0-99.0); PCO2(98.6) 40 mmHg (35-45); PO2(98.6) 383 mmHg (60-100); SAMPLE BLOOD; SAO2 100.1 % (95.0-100.0); SRATE 16 BPM; THB 13.2 g/dL (11.5-17.4); TVOL 600 mL; pH(98.6) 7.41 (7.35-7.45)
[2019-06-01 14:01] LABS: ALLEN TEST NO
--- NOTE | 2019-06-01 15:06 | NEPHROLOGY PROGRESS NOTE ---
DATE: 06/01/2019 SUBJECTIVE: Mr. Chairez is resting quietly in bed. He is sedated with ventilator dependence. OBJECTIVE: His most recent vital signs, temperature 97 degrees, blood pressure 102/64, heart rate 91, respirations are 23. He is on 40% FiO2. His last recorded saturation 92%. He has had 3662 and 1725 out per Page catheter. LABORATORY: Sodium is 146, potassium 3.7, chloride 109, CO2 23, BUN 25, creatinine 0.6, glucose 184. The patient has an anion gap of 14, calcium is 7.4, phosphorus 2, magnesium 2.2 with an albumin of 1.6. White count 1.52, hemoglobin 12.1, hematocrit 37.7 with a platelet count of 22,000. PHYSICAL EXAMINATION: General: This is a 39-year-old white male resting quietly in bed. He is ventilator dependent with sedation. No acute distress is noted. HEENT: Normocephalic, atraumatic, conjunctivae is pale. He has ALAYNA. Mucous membranes are dry. Neck: Supple. Trachea midline. No evidence of JVD. Cardiovascular: Regular rate and rhythm on the monitor. No appreciable gallop. Lungs: Clear to auscultation anterior, equal excursion. Diminished breath sounds to the posterior bases. Remains on O2 per ventilator support. Abdomen: Hypoactive bowel sounds. NG tube is currently infusing with tube feedings. Genitourinary: Page catheter is in place with adequate urine output documented. Integumentary: No rashes or lesions inspected on the anterior surface. Neurological: As mentioned above. ASSESSMENT AND PLAN: 1. Acute kidney injury. This has resolved. 2. Electrolytes. Hypernatremia has resolved. 3. Acid-base balance. This is acceptable from our perspective, 4. We will sign off at this time and remain available during this hospital stay, if indicated. I would like to thank you for allowing us to follow with this patient. Dictated by CHRISTIAN Harris for Duy López MD Face to face encounter, data reviewed, discussed with Monty Humphrey on 06/01/19. I agree with the above assessment and plan of care. cc: CHRISTIAN Harris MD Siddharth Patel, MD MTDD
--- NOTE | 2019-06-01 16:42 | HEMO/ONC PROGRESS NOTE ---
DATE: 06/01/2019 SUBJECTIVE: There has not been much change in the patient. He remains intubated in the ICU. He has continued to have fevers. He has now been placed on a cooling blanket. He also remains on ofirmivir and Tamiflu. The patient continues to have significant diarrhea. A rectal tube has also been placed. He has had no significant events since our last note. OBJECTIVE: Vital signs: Temperature 99.9 degrees and T-max over the last 24 hours is 101, pulse rate 109, respiratory rate 26, blood pressure 109/69. O2 saturation 86% on mechanical ventilation at 40% oxygen flow. General: The patient remains sedated. He appears comfortable. HEENT: Pupils are reactive. Oral mucosa remains dry with ET tube in place. Respiratory: Inspiratory crackles noted. Overall diminished breath sounds. Cardiovascular: Tachycardic rate and rhythm. Abdomen: Soft, nontender, nondistended. Extremities: No lower extremity edema noted. Neurological: Sedated. LABORATORY: WBC is 1.52, hemoglobin 12.1, hematocrit 37.7, platelet count 22,000, ANC 0.81. Sodium 146, creatinine 0.6. CK 1936. ASSESSMENT/PLAN: 1. Acute hypoxic respiratory failure. The patient continues to be on antibiotics for severe pneumonia and possibly acute respiratory distress syndrome. He has been intubated since 05/28/2018. He is being followed by Infectious Disease and Pulmonology. Continue management and further services. 2. Neutropenia, neutropenic fever. The patient became neutropenic again today. We gave him 1 injection of Neupogen. We will continue to give him Neupogen to keep his ANC greater than 1.5. We will continue to monitor that. His fevers are most likely due to his pneumonia and influenza 3. Thrombocytopenia. This is due to combination of sepsis, flu and drug overdose. The patient's platelets have continued to remain low. Our recommendation is to transfuse for platelet count of less than 20,000 or if he is bleeding. However, if pulmonology has a different suggestion for threshold please follow their recommendation. 4. Anemia. The patient is trending down, but still continues to be stable. We will monitor his numbers peripherally. 5. Overdose. Continue management per hospital management. This is his 2nd suicide attempt. He is on suicide precautions. 6. Influenza A. The patient continues on Tamiflu via NG tube. Continue him on contact precautions. Continue management per hospitalist. 7. Acute renal failure. Nephrology states he is improved from this point. 8. Rhabdomyolysis. The patient has elevated liver function tests and CK. His CK seems to be improving. Continue medical management. DISPOSITION: It is our anticipation that the patient's platelet count will continue to improve as he improves. At this time, we will continue monitoring him peripherally for his platelets and ANC. Please feel free to contact us if needed. Dictated by CHRISTIAN Ledesma for Gerald Shin MD cc: MD Jose Alcantar MD [facility]
[2019-06-01] MEDS: MYCAMINE 100 MG in NS 100 ML IV SCH (16:44)
[2019-06-01 17:06] LABS: ALLEN TEST YES; BE 0.6 mmoll (-3.0-3.0); BLOOD TYPE ARTERIAL; HCO3-(ACT) 25.4 mmoll (20.0-26.0); METHB 1.3 % (0.0-1.5); O2(CT) 12.2 mL/dL (15.0-23.0); O2HB 93.6 % (95.0-99.0); PCO2(98.6) 34 mmHg (35-45); PO2(98.6) 60 mmHg (60-100); SAMPLE BLOOD; SAO2 96.8 % (95.0-100.0); SRATE 16 BPM; THB 9.2 g/dL (11.5-17.4); TVOL 600 mL; pH(98.6) 7.46 (7.35-7.45)
[2019-06-01 17:07] LABS: MODALITY VENTILATOR
[2019-06-01] MEDS ORDERED: ATIVAN IV PRN (17:10)
[2019-06-01] MEDS: ATIVAN 20 MG in NS 190 ML IV SCH ×3 (17:40→23:24)
[2019-06-01] MEDS ORDERED: LASIX IV ONE (18:25)
[2019-06-01] MEDS: NIMBEX 80 MG in NS 160 ML IV SCH ×2 (19:10→23:25)
--- NOTE | 2019-06-01 19:19 | Diag Imaging Result Doc PS360 ---
EXAM: CHEST-PORTABLE 06/01/2019 HISTORY: Respiratory Distress on ventilator TECHNIQUE: AP portable at 1839 COMMENT: There is an endotracheal tube with its tip at thoracic inlet. There is pulmonary edema which was also present on this date at 0528. IMPRESSION: Pulmonary edema. Electronically signed by Daniel Yeung 06/01/2019 7:17 PM
[2019-06-01] MEDS: PRAVACHOL PO SCH (20:40)
--- NOTE | 2019-06-01 22:31 | INFECTIOUS DISEASE PROGRESS NO ---
DATE: 06/01/2019 PRESENT ILLNESS: Mr. Chairez tested positive for influenza A and has developed a bacterial pneumonia with ARDS. MEDICATIONS: Today is day 3 of Tamiflu 75 mg per NG every 12 hours and meropenem 1 g IV every 8 hours. It is day 4 of treatment with micafungin 100 mg IV daily. PHYSICAL EXAMINATION: Vital signs: Temperature is 99.9 degrees, pulse rate 109, respiratory rate 26, blood pressure 109/69. O2 saturation is 86% on 40% FiO2 on mechanical ventilator. General: This is a critically ill-appearing middle-aged gentleman. He is lying in bed, sedated on the mechanical ventilator. HEENT: Skin to head and neck is erythematous. Sclerae are also erythematous. Conjunctivae are pink; difficult to visualize the oral mucous membranes. There is an oral ET tube in place, as well as an oral gastric tube which is clamped at this time. Respiratory: Lung sounds are clear in the upper lobes, diminished in the bases. The patient is tachypneic, breathing over the set rate on the ventilator, and is also using accessory muscles with igny-le-cawikljxr noted. Cardiovascular: Heart rate and rhythm are irregular and fast, sinus tachycardia on the monitor. Abdomen: Soft, round, and nontender. Bowel sounds are hypoactive. LABORATORY AND X-RAY: Today his white count is 1.52, hemoglobin 12.1, platelet count 22,000, absolute neutrophil count is 810, pH is 7.41, pCO2 40, PO2 383 on 100% FiO2. Creatinine is 0.6, estimated GFR is greater than 60. Total bilirubin is 0.25, AST 212, ALT 24, alkaline phosphatase 83, creatine kinase is 1936. Previous procalcitonin level was 10. C difficile toxin and antigen are both negative. Blood cultures collected yesterday show no growth. Chest x- ray today shows bilateral infiltrates, which are stable. ASSESSMENT AND PLAN: Mr. Chairez has had an intentional drug overdose and now has bilateral pneumonia, as well as ARDS. There was also a pancytopenia. He is receiving Tamiflu, meropenem and micafungin, all of which we will continue at this time. There is also rhabdomyolysis, however his creatine kinase continues to decrease. His C difficile toxin and antigen were negative. These plans have been discussed with and recommended by Dr. Pitt. COMORBIDITIES: For Mr. Chairez include: ARDS, rhabdomyolysis, hemochromatosis, pancytopenia and transaminitis. Dictated by CHRISTIAN Knight for Ricky Pitt MD cc: MD Jose Negron MD [facility]
--- NOTE | 2019-06-01 22:43 | PROGRESS NOTE ---
DATE: 06/01/2019 SUBJECTIVE: This is a chronically ill-appearing, middle-aged male, currently sedated on the ventilator. He currently has a cooling blanket in place. OBJECTIVE: Temperature max 99.9 degrees, blood pressure 114/72, heart rate 109, respirations 28, O2 saturation is 97% on mechanical ventilator. Intake 5.4 L, output 2.5 L.General: This is a chronically ill-appearing, middle-aged male, currently on the ventilator. Heart: S1, S2 normal. Tachycardic. Lungs: Diminished breath sounds bilaterally. No wheezing. Abdomen: Positive bowel sounds. Soft, nontender, nondistended. Extremities: No edema. Cool to touch. There is some mottling on the legs. Neurologic: The patient is currently sedated. LABORATORY DATA: White blood cell count 1.5, hemoglobin 12, hematocrit 37, platelets 22,000, ANC 810. Sodium 146, potassium 3.7, chloride 109, CO2 of 23, BUN 25, creatinine 0.6, glucose 184, phosphorus 2, magnesium 2.2, AST 212, ALT 24, alkaline phosphatase 1936, albumin 1.6. ASSESSMENT AND PLAN: 1. Acute hypoxemic respiratory failure. Likely secondary to severe pneumonia and possibly adult respiratory distress syndrome. Continue with ventilatory management as directed by the cash management officer. 2. Bilateral lobe pneumonia. The patient is currently on a cooling blanket due to recurrent fever. Continue with broad-spectrum antibiotics and antifungal therapy as directed by Dr. Pitt. 3. Influenza A. Continue on Tamiflu. 4. Sepsis. Continue with supportive care. 5. Rhabdomyolysis. Slowly improving. Continue with IV fluid. 6. Acute kidney injury. Resolved. 7. Hypernatremia. Slowly improving. The patient is on D5W. 8. Hypophosphatemia. We will replace the patient's phosphorus. 9. Severe protein-calorie malnutrition. The patient's tube feeds were on hold this morning due to a high residual. Reglan has been started. 10. Hemochromatosis. Aware. 11. Pancytopenia. The patient's ANC is dropping. Granix was started today by Dr. Shin. Also, the patient will be receiving 2 units of platelets so that a PICC line can be placed for IV access. 12. Intentional drug overdose. Aware. 13. Elevated liver function tests. Slowly improving. 14. Disposition. The patient is critically ill with a high risk of mortality. I updated the patient's about the patient's overall medical condition and treatment plan. She has decided to make the patient a DNR level 2. Also, Palliative Care has been consulted for assistance with goals of care. cc: MD Jose Yap MD [facility]
[2019-06-02] MEDS: MERREM 1 GM in NS 50 ML IV SCH ×3 (00:49→17:00)
[2019-06-02] MEDS: ATIVAN 20 MG in NS 190 ML IV SCH ×7 (02:27→20:56)
[2019-06-02] MEDS: PROTONIX IV SCH ×2 (02:29→17:28)
--- NOTE | 2019-06-02 02:33 | VASCULAR LAB ---
PROCEDURE NAME: Arterial Bilateral Legs - 06/01/2019 REFERRING PHYSICIAN: Johanna Schwartz MD. INDICATIONS: The patient is on the ventilator and there is loss of pulses. FINDINGS: Systolic brachial blood pressure is 105 mmHg. Right high thigh 107 mmHg. Left high thigh 121 mmHg. Right low thigh 107 mmHg. Left low thigh 118 mmHg. Right calf 119 mmHg. Left calf 121 mmHg. Right ankle 115 mmHg. Left ankle is 111 mmHg. There is pulsatile flow in both feet. There is no pulse waveforms involving either great toe. At rest the right ankle-brachial index is 1.10. The left ankle-brachial index is 1.06. INTERPRETATION: Normal pulsatile arterial flow to the feet bilaterally. There is no pulse waveforms picked up in the toe. There is normal ankle-brachial indices bilaterally at rest. cc: MD Johanna Cantu MD
[2019-06-02 04:37] LABS: ALLEN TEST YES; BE -0.2 mmoll (-3.0-3.0); BLOOD TYPE ARTERIAL; HCO3-(ACT) 24.6 mmoll (20.0-26.0); O2(CT) 15.7 mL/dL (15.0-23.0); O2HB 91.4 % (95.0-99.0); PO2(98.6) 64 mmHg (60-100); SAMPLE BLOOD; SAO2 94.1 % (95.0-100.0); SRATE 16 BPM; THB 12.2 g/dL (11.5-17.4); TVOL 600 mL
[2019-06-02 04:39] LABS: MODALITY VENTILATOR; PCO2(98.6) 55 mmHg (35-45)
[2019-06-02] MEDS: MORPHINE IV PRN ×3 (05:36→18:09)
[2019-06-02] MEDS: NIMBEX 80 MG in NS 160 ML IV SCH ×3 (05:36→19:49)
[2019-06-02] MEDS: REGLAN IV SCH ×4 (05:36→22:57)
[2019-06-02 06:44] LABS: AGAP 19; ALB/GLOB RATIO 0.6; ALBUMIN 2.2 g/dL (3.5-5.0); ALKALINE PHOSPHATASE 138 U/L (32-122); BUN 24 mg/dL (8-22); CALCIUM 7.7 mg/dL (8.8-10.2); CHLORIDE 109 mmol/L (98-107); CK TOTAL 939 U/L (24-204); COSMO 302; CREATININE 0.7 mg/dL (0.7-1.2); ESTIMATED GFR > 60; GLUCOSE 100 mg/dL (70-104); GOT 152 U/L (10-34); GPT 29 U/L (10-44); POTASSIUM 4.1 mmol/L (3.5-5.1); SODIUM 150 mmol/L (136-145); TCO2 22 mmol/L (25-35); TOTAL BILIRUBIN 0.28 mg/dL (0.20-1.00); TOTAL PROTEIN 5.6 g/dL (6.3-8.3)
[2019-06-02 06:50] LABS: BASO# 0.02 X1000 (0.0-0.2); BASO% 0.2 % (0.0-0.8); EOS# 0.06 X1000 (0.0-0.7); EOS% 0.5 % (0.0-10.0); HEMATOCRIT 37.4 % (42.0-52.0); HEMOGLOBIN 11.5 g/dL (14.0-18.0); IMM GRAN# 0.89 X1000 (0.0-0.04); LYMPH# 0.74 X1000 (1.2-3.4); LYMPH% 6.7 % (20.5-51.1); MCH 26.1 PG (27-31); MCHC 30.7 g/dL (33-37); MCV 84.8 FL (81-99); MONO# 0.15 X1000 (0.11-0.59); MONO% 1.4 % (1.7-9.3); NEUT# 9.21 X1000 (1.4-6.5); NEUT% 83.2 % (42.2-75.2); PLT 79 X1000 (130-400); RBC 4.41 XMIL (4.7-6.1); RDW 14.2 % (11.5-14.5); WBC 11.07 X1000 (4.8-10.8)
[2019-06-02 07:10] LABS: MAGNESIUM 2.1 mg/dL (1.5-2.7); PHOSPHORUS 3.2 mg/dL (2.7-4.5)
--- NOTE | 2019-06-02 07:11 | Diag Imaging Result Doc PS360 ---
EXAM: CHEST-PORTABLE 06/02/2019 HISTORY: Vent pt TECHNIQUE: AP portable at 0512 COMMENT: There is an endotracheal tube with its tip at the thoracic inlet and an NG tube which passes below the diaphragm into the stomach. There is diffuse interstitial pulmonary edema. This has not changed appreciably since 06/01/2019. IMPRESSION: Pulmonary edema. Electronically signed by Daniel Yeung 06/02/2019 7:09 AM
[2019-06-02] MEDS ORDERED: D5W 1,000 ML IV SCH (07:15)
[2019-06-02] MEDS: TAMIFLU NG SCH ×2 (08:55→20:15)
[2019-06-02] MEDS: EFFEXOR XR PO SCH (08:56)
[2019-06-02] MEDS: XOPENEX NEB INH SCH ×3 (09:54→21:30)
[2019-06-02] MEDS: ATROVENT NEB INH SCH ×3 (09:54→21:30)
--- NOTE | 2019-06-02 12:46 | HEMO/ONC PROGRESS NOTE ---
DATE: 06/02/2019 SUBJECTIVE: The patient continues to remain intubated in the ICU. He is continuing to have low- grade fever and diarrhea. He has had no significant events. We did provide him with a Neupogen injection yesterday which improved his neutropenia. OBJECTIVE: Vital Signs: Temperature 99.8 degrees, pulse rate 121, respiratory rate 16, blood pressure 140/81, O2 saturation 93% on mechanical ventilation at 60% oxygen flow. General: The patient remains sedated and comfortable. Respiratory: Inspiratory crackles noted. Overall diminished breath sounds. Cardiovascular: Tachycardic rate and rhythm. Abdomen: Soft, nontender, nondistended. Extremities: No lower extremity edema noted. Neurologic: Sedated. GI/: Patient has a Page catheter and a rectal tube. LABORATORY DATA: WBCs 11.07, hemoglobin 11.5, hematocrit 37.4, platelet count 79,000. ANC 9.21. Sodium 150, potassium 4.1, creatinine 0.7, calcium 7.7, AST 152, ALT 29, alkaline phosphatase 138. Creatine kinase 939. Chest x-ray shows diffuse interstitial pulmonary edema, acute hypoxic respiratory failure. This is likely secondary to severe pneumonia or ARDS. The patient continues on ventilator managed by Pulmonology. ASSESSMENT: 1. Neutropenia with neutropenic fever. The patient continues to have fevers. He had 1 injection of Neupogen yesterday that has increased his white blood cell count and ANC significantly. We will continue to monitor. 2. Thrombocytopenia. This is finally starting to improve. His platelet count is 79,000 today. We continue our recommendation to transfuse platelets if they are less than 20,000 or if he is bleeding. Please refer to Pulmonology if they have a different threshold. 3. Anemia. The patient's anemia has remained stable. We will continue to monitor his numbers peripherally. 4. Overdose. Continue management per hospital management. 5. Influenza A. Continue hospital management. 6. Acute renal failure. His creatinine is doing fairly well. Nephrology states he has improved. 7. Rhabdomyolysis. It appears his CK numbers are improving. Continue medical management. DISPOSITION: We will continue monitoring peripherally. Please let us know if needed over the weekend. Dictated by CHRISTIAN Ledesma for Gerald Shin MD As above. Continue neupogen if ANC less than 1.5. Good response to neupogen. Discussed care with Dr. Schwartz from heme standpoint. Gerald Shin MD cc: MD Jose Alcantar MD MTDD
--- NOTE | 2019-06-02 15:25 | INFECTIOUS DISEASE PROGRESS NO ---
DATE: 06/02/2019 PRESENT ILLNESS: The patient has bilateral pulmonary infiltrates. It could be due to pulmonary edema or ARDS or possibly an infection or some combination thereof. The patient initially started out with influenza A and may have developed a bacterial superinfection. MEDICATIONS: The patient has been on micafungin for 5 days, meropenem for 4 days, and Tamiflu for 4 days. PHYSICAL EXAMINATION: Vital Signs: Temperature is 99 degrees, pulse 106, respirations 16, blood pressure 117/67. General: This is an ill-appearing, middle-aged male. He is intubated and comatose. Head/eyes/ears/nose/throat: There is no drainage from the nose or the ears. The patient has an orotracheal tube and an orogastric tube in place. Neck: No stiffness. Lungs: Clear to auscultation. Cardiovascular: Heart rate is regular. Abdomen: Soft and nontender. Extremities: The patient's feet are mottled. The patient's arms are swollen. Neurologic: The patient is obtunded. He did respond to verbal stimuli. There is no tremor. LAB AND X-RAY: Patient's chest x-ray was read as showing pulmonary edema. The CBC shows a white count of 11,070, hemoglobin 11.5, and platelet count 79,000. Blood gases show a pH of 7.3, a PO2 of 64, and a pCO2 of 55. Creatinine is 0.7, GFR is greater than 60. AST is 152. ASSESSMENT AND PLAN: The patient has pulmonary infiltrates, the differential of which I mentioned above. For right now, the patient's fever seems to be coming down gradually, so I am going to continue with the meropenem and micafungin and Tamiflu. I have also ordered a procalcitonin level. COMORBIDITIES: The patient is thought to have ARDS, rhabdomyolysis, hemochromatosis, and elevated liver function studies. cc: MD Jose Negron MD
[2019-06-02] MEDS ORDERED: LASIX IV SCH (15:45)
[2019-06-02] MEDS: SODIUM BICARBONATE IV SCH (16:00)
[2019-06-02] MEDS: D5W IV SCH (16:00)
[2019-06-02] MEDS: MYCAMINE 100 MG in NS 100 ML IV SCH (17:26)
--- NOTE | 2019-06-02 18:07 | PROGRESS NOTE ---
DATE: 06/02/2019 SUBJECTIVE: The patient is currently sedated on the ventilator. OBJECTIVE: Vital Signs: T-max 101.2 degrees, blood pressure 110/68, heart rate 104, respirations 16, O2 saturations 94% on the mechanical ventilator. Intake 1.6 L. Output 1.2 L. General: This is a chronically ill-appearing middle-aged male currently sedated on the ventilator. Heart: S1, S2 normal. Tachycardic. Lungs: Diminished breath sounds bilaterally. No wheezing. Abdomen: Positive bowel sounds. Soft, nontender, nondistended. Extremities: Cool to touch and they are mottled. No edema noted. Neurologic: The patient is currently sedated on the ventilator. LABORATORY DATA: White blood cell count 11, hemoglobin 11, hematocrit 37, platelets 79,000. ABG: pH 7.3, pCO2 55, PO2 64. Sodium 150, potassium 4.1, chloride 109, CO2 22, BUN 24, creatinine 0.7 glucose 100. AST 152, ALT 29, alkaline phosphatase 138. CK 939, albumin 2.2. ASSESSMENT AND PLAN: 1. Acute hypoxemic respiratory failure. Multifactorial. The patient has pneumonia, acute respiratory distress syndrome and pulmonary edema. Continue with ventilatory management as directed by the discharge door operator. 2. Bilateral lobe pneumonia. Continue on the current treatment regimen as directed by Dr. Pitt. 3. Influenza A. The patient is on day 5 of Tamiflu therapy. 4. Sepsis. Continue with the current treatment regimen. 5. Rhabdomyolysis. Slowly improving. The patient is on IV fluids. 6. Acute kidney injury. Resolved. 7. Hypernatremia. The patient is on D5W. 8. Severe protein calorie malnutrition. The patient's tube feeds are on hold due to high residuals. The patient is currently receiving Reglan. 9. Hemochromatosis. Aware. 10. Pancytopenia. Improved. The patient received 2 units of platelets yesterday. Continue to monitor closely. 11. Elevated LFTs. Improved. 12. Intentional drug overdose. Aware. 13. Disposition. The patient is critically ill with a high risk of mortality. The patient is currently a DNR level 2. cc: MD Jose Yap MD MTDD
[2019-06-02] MEDS: PRAVACHOL PO SCH (20:14)
--- NOTE | 2019-06-02 20:51 | PULMONOLOGY PROGRESS NOTE ---
DATE: 06/02/2019 SUBJECTIVE: The patient is sedated and paralyzed. He is not moving. OBJECTIVE: Vital Signs: Patient's maximum temperature in the last 24 hours is 101.2 degrees, blood pressure 119/75, heart rate 112, respiratory rate 14, oxygen saturation 91%. HEENT: Pupils are equal and reactive. Oropharynx is clear, but dry. Neck: Supple. Chest: Crackles diffusely. Cardiac: S1, S2. Abdomen: Soft with decreased bowel sounds. Extremities: Generalized edema. LABORATORIES: Chest x-ray reveals diffuse bilateral infiltrates. White blood count 11.07, hemoglobin 11.5 platelet count 79,000. Sodium 150, potassium 4.1, chloride 109, bicarbonate 22, anion gap 19, BUN 24, creatinine 0.7. Arterial blood gas reveals a pH of 7.30, pCO2 of 55, pO2 of 64. IMPRESSION: A 39-year-old with: 1. Influenza. 2. Acute respiratory distress syndrome. 3. Acute hypoxemic respiratory failure. 4. Acute hypercapnic respiratory failure. 5. Neutropenia with neutropenic fever. 6. Thrombocytopenia. 7. Rhabdomyolysis. 8. Hemochromatosis. 9. Psoriatic arthritis. 10. Nicotine addiction with ongoing tobacco use at the time of admission. DISCUSSION: 39-year-old with problems outlined above. He continues to remain critically ill and require higher FiO2 concentrations. His compliance is bad, but his peak pressures are less than 35. PLAN: 1. Continue antibiotics per Infectious Disease. 2. Continue full ventilatory support with paralysis. 3. Initiate a diuretic trial today. If he has significant improvement, then I will attempt to discontinue the paralytic. 4. Continue tube feeding as tolerated. 5. Overall prognosis appears guarded to poor. TIME: Time spent in critical care management: 35 minutes. cc: MD Jose Reardon MD
[2019-06-02] MEDS: LASIX IV SCH (22:57)
[2019-06-03] MEDS: ATIVAN 20 MG in NS 190 ML IV SCH ×7 (00:14→21:54)
[2019-06-03] MEDS: NIMBEX 80 MG in NS 160 ML IV SCH ×4 (01:25→19:10)
[2019-06-03] MEDS: MERREM 1 GM in NS 50 ML IV SCH ×3 (01:26→17:31)
[2019-06-03] MEDS: PROTONIX IV SCH ×2 (03:27→15:37)
[2019-06-03] MEDS: REGLAN IV SCH ×4 (03:29→22:55)
[2019-06-03 04:51] LABS: ALLEN TEST YES; BE 1.6 mmoll (-3.0-3.0); BLOOD TYPE ARTERIAL; HCO3-(ACT) 26.1 mmoll (20.0-26.0); METHB 1.1 % (0.0-1.5); O2(CT) 18.2 mL/dL (15.0-23.0); O2HB 95.3 % (95.0-99.0); PO2(98.6) 88 mmHg (60-100); SAMPLE BLOOD; SRATE 16 BPM; THB 13.5 g/dL (11.5-17.4); TVOL 600 mL
[2019-06-03 04:59] LABS: MODALITY VENTILATOR; PCO2(98.6) 60 mmHg (35-45)
[2019-06-03] MEDS: MORPHINE IV PRN ×3 (06:01→22:55)
[2019-06-03] MEDS: LASIX IV SCH (06:01)
[2019-06-03] MEDS: SODIUM BICARBONATE IV SCH ×2 (06:02→20:13)
[2019-06-03] MEDS: D5W IV SCH ×2 (06:02→20:13)
[2019-06-03 07:24] LABS: BASO# 0.01 X1000 (0.0-0.2); BASO% 0.2 % (0.0-0.8); HEMATOCRIT 34.5 % (42.0-52.0); HEMOGLOBIN 10.3 g/dL (14.0-18.0); IMM GRAN# 0.08 X1000 (0.0-0.04); IMM GRAN% 1.3 % (0.0-0.5); LYMPH# 0.42 X1000 (1.2-3.4); LYMPH% 6.7 % (20.5-51.1); MCH 25.8 PG (27-31); MCHC 29.9 g/dL (33-37); MCV 86.5 FL (81-99); MONO# 0.15 X1000 (0.11-0.59); MONO% 2.4 % (1.7-9.3); MPV 12.2 FL (7.4-10.4); NEUT# 5.62 X1000 (1.4-6.5); NEUT% 89.4 % (42.2-75.2); PLT 46 X1000 (130-400); RBC 3.99 XMIL (4.7-6.1); RDW 14.6 % (11.5-14.5); WBC 6.28 X1000 (4.8-10.8)
[2019-06-03 07:43] LABS: AGAP 14; ALB/GLOB RATIO 0.7; ALBUMIN 2.2 g/dL (3.5-5.0); ALKALINE PHOSPHATASE 117 U/L (32-122); BUN 22 mg/dL (8-22); CALCIUM 7.5 mg/dL (8.8-10.2); CHLORIDE 105 mmol/L (98-107); COSMO 304; CREATININE 0.8 mg/dL (0.7-1.2); ESTIMATED GFR > 60; GLUCOSE 276 mg/dL (70-104); GOT 83 U/L (10-34); GPT 24 U/L (10-44); POTASSIUM 3.3 mmol/L (3.5-5.1); SODIUM 146 mmol/L (136-145); TCO2 27 mmol/L (25-35); TOTAL BILIRUBIN 0.29 mg/dL (0.20-1.00); TOTAL PROTEIN 5.4 g/dL (6.3-8.3)
--- NOTE | 2019-06-03 08:07 | Diag Imaging Result Doc PS360 ---
EXAM: CHEST-PORTABLE INDICATION: Vent pt TECHNIQUE: One view COMPARISON: 06/02/2019 FINDINGS: Support tubes and lines are in stable positions. Diffuse infiltrates that are predominantly interstitial indicating edema are unchanged. No new consolidation is identified. Cardiac silhouette is stable. IMPRESSION: Stable chest. Electronically signed by Josh Chen 06/03/2019 8:05 AM
[2019-06-03] MEDS ORDERED: POTASSIUM PHOSPHATE 30 MMOL in NS 250 ML IV ONE (08:26)
[2019-06-03] MEDS: TAMIFLU NG SCH ×2 (08:55→20:12)
[2019-06-03] MEDS: EFFEXOR XR PO SCH (09:00)
[2019-06-03] MEDS: ATROVENT NEB INH SCH ×3 (09:16→21:29)
[2019-06-03] MEDS: XOPENEX NEB INH SCH ×3 (09:16→21:29)
[2019-06-03] MEDS: MYCAMINE 100 MG in NS 100 ML IV SCH (17:31)
[2019-06-03] MEDS: TYLENOL PO PRN (17:37)
[2019-06-03] MEDS: PRAVACHOL PO SCH (20:12)
--- NOTE | 2019-06-03 22:28 | PULMONOLOGY PROGRESS NOTE ---
DATE: 06/03/2019 SUBJECTIVE: The patient remains paralyzed. He is sedated. His peak airway pressures are 33. OBJECTIVE: Vital Signs: Maximum temperature in the last 24 hours is 99.8 degrees. His temperature curve appears to be decreasing. BP 129/83, heart rate 123, respiratory rate 16, oxygen saturation 94%. Intake approximately equals output. HEENT: Pupils are midpoint and minimally reactive. Oropharynx appears dry but clear. Neck: Supple. Chest: Reveals crackles bilaterally. Cardiac: Increased rate. Regular rhythm. Abdomen: Soft with diminished bowel sounds. Extremities: Without edema. LABORATORIES: Chest x-ray reveals bilateral infiltrates without significant record changer the last 24 hours. White blood count 6.28, hemoglobin 10.3, platelet count 49,000. Sodium 146, potassium 3.3, chloride 105, bicarbonate 27, BUN 22, creatinine 0.8. Arterial blood gas reveals pH 7.30, pCO2 of 60, PO2 of 88. IMPRESSION: A 39-year-old with: 1. Influenza. 2. Acute respiratory distress syndrome. 3. Acute hypoxemic respiratory failure. 4. Acute hypercapnic respiratory failure. 5. Neutropenia with neutropenic fever. 6. Thrombocytopenia. 7. Rhabdomyolysis. 8. Psoriatic arthritis. 9. Hemochromatosis. 10. Nicotine addiction with ongoing tobacco use at the time of discharge. PLAN: 1. Continue antibiotics per Infectious Disease. 2. Continue full ventilatory support with paralysis. If the patient continues to remain stable to improved, anticipate discontinuing paralysis tomorrow. 3. Continue small diuretic trial. 4. Tube feeding as tolerated. 5. Overall prognosis is guarded to poor. TIME: Spent in critical care management, 35 minutes. cc: MD Jose Reardon MD
--- NOTE | 2019-06-03 22:36 | PROGRESS NOTE ---
DATE: 06/03/2019 SUBJECTIVE: The patient is currently on a paralytic and sedation on the ventilator. OBJECTIVE: Vital Signs: Temperature 98.7 degrees, blood pressure 128/75, heart rate 117, respirations 16, O2 saturation is 96% on the mechanical ventilator. Intake 5.4 L, output 5.5 L. General: This is a chronically ill-appearing, middle-aged male, currently sedated and paralyzed on the ventilator. Heart: S1, S2 normal. Tachycardic. Lungs: Diminished breath sounds with crackles in the bases. Abdomen: Positive bowel sounds. Soft, nontender, nondistended. Extremities: No edema. No cyanosis. Neurologic: Currently sedated and paralyzed on the ventilator. LABORATORY AND DIAGNOSTIC DATA: White blood cell count 6.2, hemoglobin 10, hematocrit 34, platelets 46,000. ABG, pH of 7.3, pCO2 of 60, PO2 of 88, bicarbonate 26. Sodium 146, potassium 3.3, chloride 105, CO2 of 27, BUN 22, creatinine 0.8, glucose 276, phosphorus 2, AST 83, ALT 24, alkaline phosphatase 117. CK 468. Chest x-ray shows diffuse bilateral infiltrates. ASSESSMENT AND PLAN: 1. Acute hypoxemic and hypercapnic respiratory failure. Multifactorial. The patient has bilateral lobe pneumonia, adult respiratory distress syndrome, and pulmonary edema. Continue with ventilatory management as directed by the alternative financing specialist. 2. Bilateral lobe pneumonia. Continue with the current treatment regimen as directed by Dr. Pitt. The procalcitonin is 3.8. 3. Adult respiratory distress syndrome. Continue with vent management as directed by the alternative financing specialist. 4. Influenza A. Today is day 6 of Tamiflu. 5. Rhabdomyolysis. Slowly improving. The patient is on D5W. 6. Hypernatremia. Improved. 7. Hemochromatosis. Aware. 8. Severe protein calorie malnutrition. The patient's tube feeds are on hold due to high residuals. 9. Thrombocytopenia. The platelet count is decreasing again. We will continue to monitor closely and transfuse p.r.n. 10. Transaminitis. Improved. 11. Intentional drug overdose. Aware. 12. Disposition. The patient remains critically ill with a high risk of mortality. The patient is currently a DNR level 2. Palliative Care is following. cc: MD Jose Yap MD [facility]
[2019-06-04] MEDS: MERREM 1 GM in NS 50 ML IV SCH ×3 (02:00→17:33)
[2019-06-04] MEDS: NIMBEX 80 MG in NS 160 ML IV SCH ×5 (02:04→22:32)
[2019-06-04] MEDS: ATIVAN 20 MG in NS 190 ML IV SCH ×5 (02:55→20:47)
[2019-06-04] MEDS: PROTONIX IV SCH ×2 (02:56→16:28)
[2019-06-04] MEDS: REGLAN IV SCH ×4 (04:34→21:04)
[2019-06-04 04:56] LABS: ALLEN TEST YES; BE 9.1 mmoll (-3.0-3.0); BLOOD TYPE ARTERIAL; HCO3-(ACT) 32.1 mmoll (20.0-26.0); METHB 0.9 % (0.0-1.5); O2HB 96.2 % (95.0-99.0); PO2(98.6) 86 mmHg (60-100); SAMPLE BLOOD; SAO2 99.3 % (95.0-100.0); SRATE 16 BPM; THB 3.5 g/dL (11.5-17.4); TVOL 600 mL; pH(98.6) 7.41 (7.35-7.45)
[2019-06-04 05:14] LABS: MODALITY VENTILATOR; PCO2(98.6) 54 mmHg (35-45)
[2019-06-04] MEDS: MORPHINE IV PRN ×4 (06:43→18:19)
[2019-06-04 06:44] LABS: BASO# 0.01 X1000 (0.0-0.2); BASO% 0.2 % (0.0-0.8); EOS# 0.01 X1000 (0.0-0.7); EOS% 0.2 % (0.0-10.0); HEMATOCRIT 33.3 % (42.0-52.0); HEMOGLOBIN 9.9 g/dL (14.0-18.0); IMM GRAN# 0.04 X1000 (0.0-0.04); IMM GRAN% 0.9 % (0.0-0.5); LYMPH% 11.2 % (20.5-51.1); MCH 25.7 PG (27-31); MCHC 29.7 g/dL (33-37); MCV 86.5 FL (81-99); MONO# 0.23 X1000 (0.11-0.59); MONO% 5.1 % (1.7-9.3); NEUT# 3.68 X1000 (1.4-6.5); NEUT% 82.4 % (42.2-75.2); PLT 48 X1000 (130-400); RBC 3.85 XMIL (4.7-6.1); RDW 14.6 % (11.5-14.5); WBC 4.47 X1000 (4.8-10.8)
[2019-06-04 07:09] LABS: AGAP 11; ALB/GLOB RATIO 0.6; ALKALINE PHOSPHATASE 122 U/L (32-122); BUN 19 mg/dL (8-22); CALCIUM 7.8 mg/dL (8.8-10.2); CHLORIDE 108 mmol/L (98-107); COSMO 309; CREATININE 0.7 mg/dL (0.7-1.2); ESTIMATED GFR > 60; GLUCOSE 297 mg/dL (70-104); GOT 51 U/L (10-34); GPT 25 U/L (10-44); POTASSIUM 3.5 mmol/L (3.5-5.1); SODIUM 149 mmol/L (136-145); TCO2 30 mmol/L (25-35); TOTAL BILIRUBIN 0.45 mg/dL (0.20-1.00); TOTAL PROTEIN 5.4 g/dL (6.3-8.3)
[2019-06-04 07:10] LABS: PHOSPHORUS 1.7 mg/dL (2.7-4.5)
--- NOTE | 2019-06-04 07:11 | Diag Imaging Result Doc PS360 ---
EXAM: ABDOMEN FLAT/UPRIGHT HISTORY: Poss. Constipation TECHNIQUE: Two views COMPARISON: 05/30/2019 FINDINGS: There is a nasogastric tube in the stomach. No organomegaly. Nonspecific bowel gas pattern. No definite dilated bowel loops. No abnormal abdominal calcifications. IMPRESSION: No definite constipation Electronically signed by Martin Miller 06/04/2019 7:09 AM
--- NOTE | 2019-06-04 07:12 | Diag Imaging Result Doc PS360 ---
EXAM: CHEST-PORTABLE HISTORY: Vent pt TECHNIQUE: Single view COMPARISON: 06/03/2019 FINDINGS: No change in the endotracheal tube, nasogastric tube, or right-sided PICC line. There are bilateral infiltrates. No cardiomegaly. There are many small pleural effusions. IMPRESSION: No interval improvement Electronically signed by Martin Miller 06/04/2019 7:10 AM
[2019-06-04] MEDS ORDERED: POTASSIUM PHOSPHATE 40 MMOL in NS 250 ML IV ONE (08:00)
[2019-06-04] MEDS: TAMIFLU NG SCH (08:20)
[2019-06-04] MEDS: SODIUM BICARBONATE IV SCH (08:21)
[2019-06-04] MEDS: D5W IV SCH (08:21)
[2019-06-04] MEDS ORDERED: LASIX IV ONE (09:04)
[2019-06-04] MEDS: XOPENEX NEB INH SCH ×3 (09:23→21:44)
[2019-06-04] MEDS: ATROVENT NEB INH SCH ×3 (09:23→21:44)
[2019-06-04] MEDS: D5W 1,000 ML IV SCH (09:46)
--- NOTE | 2019-06-04 09:58 | INFECTIOUS DISEASE PROGRESS NO ---
DATE: 06/04/2019 PRESENT ILLNESS: The patient has pulmonary infiltrates. The patient could have pulmonary edema or ARDS. The patient's high procalcitonin level of 3.8 indicates that the patient is likely to have a bacterial pneumonia. The patient did test positive for influenza but I think, at this time in the hospital, that the infiltrates are not caused at this time by influenza. MEDICATIONS: The patient has been on multiple antibiotics. Currently, he is on meropenem. This is day 6 of treatment with that agent. This is the sixth day of treatment with Tamiflu. The patient also is receiving micafungin. PHYSICAL EXAMINATION: Vital Signs: Temperature is 99 degrees, pulse 130, respirations 16, blood pressure is 150/90. General: This is an ill-appearing, middle-aged male. He is intubated and comatose. Head, Eyes, Ears, Nose, and Throat: No drainage is noted from the nose or ears. The patient has an orogastric tube and an orotracheal tube in place. Neck: No stiffness. Lungs: Clear to auscultation. Cardiovascular: Heart rate is regular and rapid. Abdomen: Soft and nontender. Extremities: The patient has a PICC in the right arm. The site is not erythematous or purulent. Neurologic: As mentioned above, the patient is comatose. He did not respond to verbal stimuli. LAB AND X-RAY: Chest x-ray shows bilateral infiltrates. Procalcitonin level is 3.8. CBC shows a white count of 4470, hemoglobin 9.9, and platelet count 48,000. Blood gases show a pH of 7.41, a PO2 of 86, and a pCO2 of 54. The patient's creatinine is 0.7. GFR is greater than 60. ASSESSMENT AND PLAN: The patient has pulmonary infiltrates and with the high procalcitonin level, it could be a bacterial pneumonia. I am going to continue with meropenem and I have also ordered a sputum for Gram stain and culture. As mentioned above, the patient did have influenza but I doubt at this time that it is causing his pulmonary infiltrates. He has had 6 days' worth of treatment and I am going to discontinue Tamiflu. Also I will discontinue micafungin. cc: MD Jose Negron MD [facility]TDD
--- NOTE | 2019-06-04 14:33 | PULMONOLOGY PROGRESS NOTE ---
DATE: 06/04/2019 SUBJECTIVE: The patient is sedated and paralyzed. OBJECTIVE: Vital Signs: Peak pressures have increased on mechanical ventilation at almost 40. BP 134/85, heart rate 121, respiratory rate 16, oxygen saturation 97%. HEENT: Pupils are equal and reactive, but very faintly so. Oropharynx appears clear. Neck: Supple. Chest: Crackles bilaterally. Cardiac: Increased rate. Regular rhythm. Abdomen: Soft with diminished bowel sounds. Extremities: There is 1+ peripheral edema. IMAGING AND LABORATORY DATA: Chest x-ray reveals diffuse bilateral infiltrates without improvement. Arterial blood gas reveals a pH of 7.41, pCO2 of 54, pO2 of 86. White blood count 4.47, hemoglobin 9.9, platelet count 48,000. IMPRESSION: A 39-year-old with: 1. Influenza. 2. Acute respiratory distress syndrome. 3. Acute hypoxemic respiratory failure. 4. Acute hypercapnic respiratory failure. 5. Neutropenia with neutropenic fever. 6. Thrombocytopenia. 7. Psoriatic arthritis. 8. Hemochromatosis. 9. Nicotine addiction with ongoing tobacco use at the time of admission. DISCUSSION: A 39-year-old with problems outlined above. His peak pressures are rising, and ventilator adjustments will be made. The patient has oxygen desaturation with any movement, according to the nursing staff. Because his oxygenation remains marginal and he remains labile, I will continue paralytics today. A diuretic trial will be initiated in a hope that paralysis can be discontinued tomorrow. PLAN: 1. Ventilator adjustments to decrease peak airway pressures. 2. Continue paralysis and sedation. The patient is mildly tachycardic, and will receive morphine to see if this attenuates his tachycardia. 3. Tube feeds as tolerated. 4. Overall prognosis is guarded to poor. This was discussed with his . TIME SPENT: Time spent in critical care management was 35 minutes. cc: MD Jose Reardon MD
[2019-06-04] MEDS: LASIX IV SCH ×2 (15:00→21:04)
--- NOTE | 2019-06-04 17:34 | GASTROENTEROLOGY PROGRESS NOTE ---
DATE: 06/03/2019 SUBJECTIVE: Mr. Chairez is a 39-year-old, male, resting in bed. He is on a mechanical ventilator, sedated, unable to assess patient. Family is at the bedside. OBJECTIVE: Vital Signs: Temperature 98.1 degrees, pulse 124, respirations 16, blood pressure 129/81, oxygen saturation 94% on mechanical ventilator. His weight is 157 pounds. BMI is 24.1 kg/m2. General: The patient is on a mechanical ventilator sedated, unable to answer. HEENT: Pale conjunctivae. No icterus. Endotracheal tube in place. Neck: Supple. Lungs: Crackles heard in the anterior mittal. Cardiovascular: The patient is tachycardic. Abdomen: Soft, nondistended. Hypoactive bowel sounds heard in all four quadrants. Extremities: No clubbing, no cyanosis, no edema. Pedal pulses 2+ present bilaterally. Neurologic: The patient is sedated and is on mechanical ventilator. LABORATORY DATA: WBCs of 6.28, RBCs 3.99, hemoglobin is 10.3, hematocrit is 34.5, platelet count is 46,000. Sodium is 137, potassium 3.3, chloride 105, carbon dioxide is 27, anion gap 14, BUN 22, creatinine 0.8, glucose 38, calcium 7.5, total bilirubin 0.29, AST 83, ALT 24, alkaline phosphatase is 117, albumin is 2.2. IMAGING: Chest x-ray showed stable chest, abdomen. IMPRESSION AND PLAN: 1. Elevated liver function tests. 2. Rhabdomyolysis. 3. Acute respiratory failure. 4. Pneumonia 5. Drug overdose. 6. Influenza. 7. Hypernatremia. 8. Tobacco abuse. 9. Anxiety. 10. Depression. PLAN: Mr. Chairez is a 39-year-old male with a history of hemochromatosis, psoriatic arthritis, tobacco abuse, anxiety, depression and overdose of muscle relaxers, prednisone, ibuprofen and oxycodone. Gastroenterology is following him for his elevated liver function tests. The patient is currently on Protonix IV 40 mg IV twice a day. The patient is on antibiotic Merrem. The patient's temperature was 98.1 degrees. We will continue to monitor the patient's liver function test, provide supportive care to the patient and follow the plan of care per PCP. This plan was discussed with Dr. Vance. Please call us for any further questions or concerns. Dictated by CHRISTIAN Medina for Nohemi Vance MD cc: MD Jose Peng MD [facility]TD[facility]
[2019-06-04] MEDS: OFIRMEV 1000 MG/ISOTONIC SOLN 1,000 MG/100 ML BOTTLE IV PRN (18:19)
--- NOTE | 2019-06-04 18:31 | PROGRESS NOTE ---
DATE: 06/04/2019 SUBJECTIVE: The patient is currently sedated and paralyzed on the ventilator. He is more tachycardic today and is hypotensive. OBJECTIVE: Vital Signs: T-max 99.8 degrees, blood pressure 110/67, heart rate 124, respirations 22, O2 saturations 97% on the mechanical ventilator. Intake 1.7 L, output 600. General: This is a chronically ill-appearing middle-aged male currently sedated and paralyzed on the ventilator. Heart: S1, S2 normal. Tachycardic. Lungs: Bilateral rhonchi. Abdomen: Positive bowel sounds. Soft, nontender, nondistended. Extremities: 1+ edema bilaterally. Neurologic: The patient is currently sedated on the ventilator. LABS: White blood cell count 4.4, hemoglobin 9.9, hematocrit 33, platelets 48,000, ABG pH of 7.41, pCO2 54, PO2 86, bicarb 32. Sodium 149, potassium 3.5, chloride 108, CO2 30, BUN 19, creatinine 0.7, glucose 297, phosphorus 1.7, AST 51, ALT 25, CK 277, albumin 2. IMAGING: Chest x-ray shows diffuse bilateral infiltrates. ASSESSMENT AND PLAN: 1. Acute hypoxemic and hypercapnic respiratory failure. Multifactorial. The patient has ARDS as well as bilateral lobe pneumonia. Continue with ventilatory management as directed by the core rescuer. 2. Bilateral lobe pneumonia. Unchanged. Continue with the current antibiotic regimen as directed by Dr. Pitt. 3. ARDS. Continue with ventilatory management as directed by the core rescuer. 4. Influenza A. The patient has completed therapy with Tamiflu and has been discontinued. 5. Hypernatremia. Continue on D5W and free water flushes via the NG tube. 6. Rhabdomyolysis. Slowly improving. 7. Hemochromatosis. Aware. 8. Psoriatic arthritis. Aware. 9. Severe protein calorie malnutrition. Continue with tube feeds. 10. Pancytopenia. Stable. 11. Elevated LFTs. Improved. 12. Intentional drug overdose. Aware. 13. Hypophosphatemia. We will replace the patient's phosphorus. 14. Disposition. The patient remains critically ill with a high risk of mortality. I updated the patient's about the patient's treatment plan and overall medical condition. The patient is a Do Not Resuscitate level 2. Palliative care is following. cc: MD Jose Yap MD [facility]
[2019-06-04 19:49] LABS: PHOSPHORUS 2.8 mg/dL (2.7-4.5); POTASSIUM 3.5 mmol/L (3.5-5.1)
--- NOTE | 2019-06-04 20:31 | GASTROENTEROLOGY PROGRESS NOTE ---
DATE: 06/04/2019 SUBJECTIVE: Mr. Chairez is a 39-year-old male. He is resting in bed and is on a mechanical ventilator and sedated, unable to assess the patient. Family is at the bedside. OBJECTIVE: Vital Signs: Temperature 99.8 degrees, pulse is 129, respirations 22, blood pressure 120/77, oxygen saturation 96% on a mechanical ventilator. The patient's weight is 172 pounds. BMI is 24.1 kg/m2. General: Patient is intubated and sedated. Unable to assess the patient. HEENT: Pale conjunctivae. No icterus. PERRL. Endotracheal tube in place. Neck: Supple. Lungs: diminished breath sounds heard in the anterior mittal.. Cardiovascular: Patient is tachycardic and tachypneic. Abdomen: Soft, nondistended. Active bowel sounds heard in all 4 quadrants. Extremities: No clubbing, no cyanosis, no edema. Pedal pulses 2+ present bilaterally. Neurologic: Patient is sedated and is on a mechanical ventilator. LABS: WBC is 4.47, RBC is 3.38, hemoglobin is 9.9, hematocrit is 33.3, platelet count is 48,000. Sodium 149, potassium is 3.5, chloride is 108, carbon dioxide 30, anion gap 11, BUN 19, creatinine is 0.7, glucose is 297, calcium 7.8, phosphorus is 2.8, magnesium is 2.1, total bilirubin 0.45. AST 51, ALT 25, alkaline phosphatase is 122. IMAGING: The patient's abdominal x-ray had shown no definite constipation. The patient's chest x- ray has shown no interval improvement. IMPRESSION AND PLAN: 1. Elevated liver function tests. 2. Rhabdomyolysis. 3. Acute respiratory failure. 4. Pneumonia. 5. Influenza. 6. Hyponatremia. 7. Tobacco abuse. 8. Anxiety. 9. Depression. 10. Drug overdose. PLAN: Mr. Chairez is a 39-year-old male with a history of hemochromatosis, psoriatic arthritis, tobacco abuse, anxiety, depression and overdose of muscle relaxers, prednisone, ibuprofen, oxycodone. Gastroenterology is following him for his elevated liver function tests. His liver enzymes today are, total bilirubin today is 0.45, AST is 51, ALT is 25, and alkaline phosphatase is 122. His AST has been elevated, but it is trending down. The patient is receiving gastrointestinal prophylaxis, Protonix IV twice a day. He is on antibiotic Merrem per ID. He is on D5 W IV fluid at 75 mL/hr. We will continue to provide supportive care to the patient and follow the plan of care per primary care physician. This plan was discussed with Dr. Vance. Please call us for any further questions or concerns. Dictated by CHRISTIAN Medina for Nohemi Vance MD cc: MD Jose Peng MD [facility]ERRadha
[2019-06-04] MEDS: PRAVACHOL PO SCH (20:51)
[2019-06-05] MEDS: MORPHINE IV PRN ×4 (01:16→15:26)
[2019-06-05] MEDS: MERREM 1 GM in NS 50 ML IV SCH ×3 (01:16→16:34)
[2019-06-05] MEDS: D5W 1,000 ML IV SCH ×2 (01:17→15:07)
[2019-06-05] MEDS: ATIVAN 20 MG in NS 190 ML IV SCH ×3 (01:20→11:34)
[2019-06-05] MEDS: NIMBEX 80 MG in NS 160 ML IV SCH ×3 (03:07→10:52)
[2019-06-05] MEDS: REGLAN IV SCH ×4 (04:47→21:23)
[2019-06-05] MEDS: PROTONIX IV SCH ×2 (04:47→15:06)
[2019-06-05 05:08] LABS: ALLEN TEST YES; BE 11.9 mmoll (-3.0-3.0); BLOOD TYPE ARTERIAL; HCO3-(ACT) 34.1 mmoll (20.0-26.0); METHB 1.3 % (0.0-1.5); O2HB 91.2 % (95.0-99.0); PO2(98.6) 61 mmHg (60-100); SAMPLE BLOOD; SAO2 94.5 % (95.0-100.0); SRATE 22 BPM; THB 10.1 g/dL (11.5-17.4); TVOL 480 mL; pH(98.6) 7.37 (7.35-7.45)
[2019-06-05 05:16] LABS: MODALITY VENTILATOR; PCO2(98.6) 68 mmHg (35-45)
[2019-06-05 06:44] LABS: MAGNESIUM 2.1 mg/dL (1.5-2.7); PHOSPHORUS 2.1 mg/dL (2.7-4.5)
[2019-06-05 06:45] LABS: BASO# 0.01 X1000 (0.0-0.2); BASO% 0.3 % (0.0-0.8); EOS# 0.02 X1000 (0.0-0.7); EOS% 0.6 % (0.0-10.0); HEMATOCRIT 32.9 % (42.0-52.0); HEMOGLOBIN 9.6 g/dL (14.0-18.0); IMM GRAN# 0.12 X1000 (0.0-0.04); IMM GRAN% 3.3 % (0.0-0.5); LYMPH# 0.59 X1000 (1.2-3.4); LYMPH% 16.4 % (20.5-51.1); MCH 25.6 PG (27-31); MCHC 29.2 g/dL (33-37); MCV 87.7 FL (81-99); MONO# 0.26 X1000 (0.11-0.59); MONO% 7.2 % (1.7-9.3); MPV 12.7 FL (7.4-10.4); NEUT# 2.59 X1000 (1.4-6.5); NEUT% 72.2 % (42.2-75.2); PLT 71 X1000 (130-400); RBC 3.75 XMIL (4.7-6.1); RDW 14.8 % (11.5-14.5); WBC 3.59 X1000 (4.8-10.8)
[2019-06-05 06:50] LABS: AGAP 12; ALB/GLOB RATIO 0.5; ALBUMIN 1.8 g/dL (3.5-5.0); ALKALINE PHOSPHATASE 107 U/L (32-122); BUN 23 mg/dL (8-22); CALCIUM 7.4 mg/dL (8.8-10.2); CHLORIDE 103 mmol/L (98-107); COSMO 312; CREATININE 0.8 mg/dL (0.7-1.2); ESTIMATED GFR > 60; GLUCOSE 349 mg/dL (70-104); GOT 31 U/L (10-34); GPT 20 U/L (10-44); POTASSIUM 3.7 mmol/L (3.5-5.1); SODIUM 148 mmol/L (136-145); TCO2 33 mmol/L (25-35); TOTAL BILIRUBIN 0.39 mg/dL (0.20-1.00); TOTAL PROTEIN 5.3 g/dL (6.3-8.3)
--- NOTE | 2019-06-05 07:17 | Diag Imaging Result Doc PS360 ---
EXAM: CHEST-PORTABLE 06/05/2019 HISTORY: Vent pt TECHNIQUE: AP portable at 0515 COMMENT: There is an endotracheal tube with its tip at thoracic inlet and an NG tube which passes below the diaphragm into the stomach. There is alveolar opacity throughout both lungs similar in appearance to the previous study of 06/04/2019. IMPRESSION: Pulmonary edema/ARDS. Electronically signed by Daniel Yeung 06/05/2019 7:15 AM
[2019-06-05 07:29] LABS: LYMPHS 15 % (21-51); MONO 6 % (1-9); SEGS 79 % (42-75)
[2019-06-05] MEDS: XOPENEX NEB INH SCH ×3 (07:40→21:37)
[2019-06-05 07:41] LABS: HEMOGLOBIN A1C 6.1 % (4.8-6.0)
[2019-06-05] MEDS: ATROVENT NEB INH SCH ×3 (08:39→21:37)
--- NOTE | 2019-06-05 08:52 | INFECTIOUS DISEASE PROGRESS NO ---
DATE: 06/05/2019 PRESENT ILLNESS: The patient continues to have bilateral pulmonary infiltrates. The exact cause of them is uncertain to me. The patient's high procalcitonin level at 3.8 indicates that the patient has a bacterial pneumonia. The patient did have influenza but I doubt that the infiltrates now are continuing to be caused by influenza. MEDICATIONS: This is day 7 of treatment with meropenem. PHYSICAL EXAMINATION: Vital Signs: Temperature is 98.2 degrees, pulse 120, respirations 22, blood pressure 112/68. General: This is an ill-appearing, middle-aged male. He is intubated and comatose. Head, Eyes, Ears, Nose, and Throat: The patient has an orotracheal tube in place and an orogastric tube in place. There is no drainage from the nose or the ears. Neck: There is no stiffness. Lungs: Clear to auscultation. Cardiovascular: Heart rate is regular. Extremities: The patient has a PICC in the right arm. The site is not purulent or erythematous. Neurologic: The patient is comatose. He did not respond to verbal stimuli. LAB AND X-RAY: Chest x-ray shows continued bilateral alveolar opacities. The patient's CBC shows a white count of 3590, hemoglobin 9.6, and platelet count 71,000. Arterial blood gases show a pH of 7.37, a PO2 of 61, and a pCO2 of 68. Creatinine is 0.8. GFR is greater than 60. Liver function studies are normal. Procalcitonin is 3.8. Sputum culture is pending. ASSESSMENT AND PLAN: The patient has pulmonary infiltrates. His temperature has been down and, as mentioned above, the procalcitonin level was elevated at 3.8, so I am going to continue meropenem as a single agent. COMORBIDITIES: In this patient include ARDS, rhabdomyolysis, hemochromatosis. cc: MD Jose Negron MD
[2019-06-05] MEDS: ALBUMIN 25% IV SCH ×3 (10:37→21:23)
[2019-06-05] MEDS: LASIX IV SCH ×3 (11:13→23:56)
[2019-06-05] MEDS: DIPRIVAN 1% 1,000 MG/100 ML BOTTLE IV SCH ×3 (12:11→21:23)
[2019-06-05] MEDS: HUMULIN R SUBQ SCH ×4 (12:26→23:51)
--- NOTE | 2019-06-05 14:05 | GASTROENTEROLOGY PROGRESS NOTE ---
DATE: 06/05/2019 SUBJECTIVE: Mr. Chairez is a 39-year-old male. He is resting in bed, on a mechanical ventilator, sedated and unable to assess patient. Family is at his bedside. OBJECTIVE: Vital Signs: Temperature 97.6 degrees, pulse 105, respirations 22, blood pressure 89/44, oxygen saturation 100% on a mechanical ventilator. The patient's weight is 173 pounds. BMI is 24.3 kg/m2. General: He is alert, oriented. He is on a mechanical ventilator sedated unable to assess patient. HEENT: Pale conjunctivae, no icterus. PERRL. Neck: Supple. Lungs: Crackles heard in the upper anterior lobes. Cardiovascular: The patient is tachycardic and tachypneic. Abdomen: Soft, nontender, nondistended. Hypoactive bowel sounds heard in all 4 quadrants. Extremities: No clubbing, no cyanosis, no edema. Pedal pulses 2+, present bilaterally. Neurologic: The patient is sedated and is on a mechanical ventilator. LABORATORY DATA: WBC 3.59, RBC 3.75, hemoglobin is 9.6, hematocrit is 32.9, platelet count is 71,000. Sodium 148, potassium 3.7, chloride 103, carbon dioxide 33, anion gap is 12, BUN 23, creatinine 0.8, glucose 349, calcium 7.4, phosphorus 2.1, magnesium 2.1, total bilirubin 0.39, AST 31, ALT 20, alkaline phosphatase is 107, albumin is 1.8. The patient's chest x- ray today showed pulmonary edema/ARDS. IMPRESSION AND PLAN: Elevated liver enzymes Rhabdomyolysis Pneumonia Influenza Drug overdose Diarrhea improved and no bowel movement for last 2 days despite flushing the rectal tube- will discontinue the recatl tube for now. Discussed with the RN at bedside. PLAN: is a 39-year-old male with a history of hemochromatosis, psoriatic arthritis, tobacco abuse, anxiety, depression and overdose of muscle relaxers, prednisone, ibuprofen and oxycodone. GI is following him for his elevated liver enzymes. The patient's liver function tests today was total bilirubin 0.39, AST 31, ALT 20, and alkaline phosphatase is 107. It has come down within the normal range. The patient is currently on GI prophylaxis 40 mg IV twice a day. The patient is on Merrem for his pneumonia. He is on IV fluids, D5 W at 75 mL/h. The patient is also on Reglan 10 mg IV every 6 hours. We will continue to provide supportive care to the patient and follow the plan of care per PCP. This plan was discussed with Dr. Hernandez. Please call us for any further questions or concerns. Dictated by CHRISTIAN Medina for Wing Hernandez MD cc: MD Jose Negrete MD I have seen and examined the patient myself and I agree with the above plan of care. I have discussed the above plan of care with the patient's family at bedside and all questions were answered. Please call us with any further questions. JUDY
--- NOTE | 2019-06-05 14:32 | PULMONOLOGY PROGRESS NOTE ---
DATE: 06/05/2019 SUBJECTIVE: The patient is sedated and paralyzed. OBJECTIVE: Vital Signs: The patient has been afebrile for the last 24 hours, blood pressure 121/76, heart rate 118, respiratory rate 22, oxygen saturation 97%. Intake 5323, output 3450. HEENT: Pupils were midpoint and poorly reactive. Oropharynx appears dry. Neck: Supple. Chest: Diffuse bilateral crackles. Cardiac: S1, S2. Abdomen: Soft with rare bowel sounds. Extremities: There is 1+ to 2+ peripheral edema. LABORATORY DATA: White blood count 3.59, hemoglobin 9.6, platelet count 71,000. Arterial blood gas reveals a pH of 7.37, pCO2 of 68, PO2 of 61. Sodium 148, potassium 3.7, chloride 103, bicarbonate 33, BUN 23, creatinine 0.8, glucose 349. Total protein 5.3, albumin 1.8. IMPRESSION: A 39-year-old with: 1. Influenza. 2. Acute hypoxemic respiratory failure with adult respiratory distress syndrome. 3. Acute hypercapnic respiratory failure. 4. Neutropenia with neutropenic fever. 5. Thrombocytopenia. 6. Psoriatic arthritis. 7. Hemochromatosis. 8. Nicotine addiction with ongoing tobacco use at the time of admission. DISCUSSION: A 39-year-old with problems outlined above. The patient has been paralyzed for the last several days. I will attempt to discontinue paralysis today, if possible. PLAN: 1. Continue current ventilator settings. He will be transitioned from volume control to pressure release volume control. 2. Attempt to discontinue paralysis. Will also discontinue Ativan drip, and transition him to propofol. 3. Continue tube feeds. 4. Overall prognosis is guarded. Family is at the bedside and are aware that he is critically ill and may or may not survive this hospital stay. Critical care management time: 50 minutes cc: MD Jose Reardon MD [facility]
--- NOTE | 2019-06-05 16:29 | PROGRESS NOTE ---
DATE: 06/05/2019 SUBJECTIVE: The patient remains sedated and paralyzed on the ventilator. He has not had a bowel movement in three days according to the nursing staff. OBJECTIVE: Vital Signs: Temperature 97.3 degrees, blood pressure 80/47, heart rate 114, respirations 23, O2 saturation 90% on 100% FiO2. Intake 5.3 L, output 3.4 L. General: This is a chronically ill-appearing middle-aged male, currently sedated and paralyzed on the ventilator. Heart: S1, S2 normal. Tachycardic. Lungs: Diminished breath sounds bilaterally. Abdomen: Hypoactive bowel sounds. Soft, mildly distended. Extremities: 1+ edema in the legs. Neurologic: The patient is currently sedated and paralyzed on the ventilator. LABS: White blood cell count 3.5, hemoglobin 9.6, hematocrit 32, platelets 71,000. Sodium 148, potassium 3.7, chloride 103, CO2 33, BUN 23, creatinine 0.8, glucose 349. IMAGING: Chest x-ray shows diffuse bilateral infiltrates. ASSESSMENT AND PLAN: 1. Acute hypoxemic and hypercapnic respiratory failure. The patient has acute respiratory distress syndrome and pneumonia. Continue with the treatment plan as directed by the bologna lacer and Infectious Disease. 2. Acute respiratory distress syndrome. Continue with ventilatory management as directed by the bologna lacer. 3. Bilateral lobe pneumonia. Continue on the current antibiotic regimen as directed by Dr. Pitt. 4. Influenza A. The patient has completed the Tamiflu therapy. 5. Hypernatremia. Continue on D5W. 6. Rhabdomyolysis. Improved. 7. Psoriatic arthritis. Aware. 8. Hemochromatosis. Aware. 9. Pancytopenia. Stable. 10. Severe protein calorie malnutrition. The patient is on tube feeds. However, he is not having bowel movements. We will increase the Reglan dose to 10 mg IV every six hours. 11. Elevated liver function tests. Improved. 12. Intentional drug overdose. Aware. 13. Hyperglycemia. We will start the patient on insulin therapy. 14. Disposition. The patient remains critically ill with a high risk of mortality. I updated the patient's about the patient's medical condition and the treatment plan. The patient is a DNR level 2. Palliative care is following. cc: MD Jose Yap MD
[2019-06-05] MEDS: PRAVACHOL PO SCH (21:23)
[2019-06-06] MEDS: MERREM 1 GM in NS 50 ML IV SCH ×3 (00:53→17:27)
[2019-06-06] MEDS: DIPRIVAN 1% 1,000 MG/100 ML BOTTLE IV SCH ×7 (01:19→22:50)
[2019-06-06] MEDS: HUMULIN R SUBQ SCH ×5 (04:29→19:57)
[2019-06-06] MEDS: D5W 1,000 ML IV SCH (04:35)
[2019-06-06] MEDS: REGLAN IV SCH ×4 (04:35→21:47)
[2019-06-06] MEDS: PROTONIX IV SCH ×2 (04:35→15:18)
[2019-06-06] MEDS: SODIUM CHLORIDE 0.9% INJ SCH (04:36)
[2019-06-06 05:24] LABS: ALLEN TEST YES; BE 19.3 mmoll (-3.0-3.0); BLOOD TYPE ARTERIAL; METHB 0.9 % (0.0-1.5); O2(CT) 16.1 mL/dL (15.0-23.0); O2HB 96.8 % (95.0-99.0); PO2(98.6) 113 mmHg (60-100); SAMPLE BLOOD; SAO2 99.1 % (95.0-100.0); SRATE 22 BPM; THB 11.7 g/dL (11.5-17.4); TVOL 500 mL; pH(98.6) 7.49 (7.35-7.45)
[2019-06-06 05:28] LABS: PCO2(98.6) 60 mmHg (35-45)
[2019-06-06 06:48] LABS: BASO# 0.05 X1000 (0.0-0.2); BASO% 0.9 % (0.0-0.8); EOS# 0.01 X1000 (0.0-0.7); EOS% 0.2 % (0.0-10.0); HEMATOCRIT 31.3 % (42.0-52.0); HEMOGLOBIN 9.5 g/dL (14.0-18.0); IMM GRAN# 0.36 X1000 (0.0-0.04); IMM GRAN% 6.2 % (0.0-0.5); LYMPH# 0.58 X1000 (1.2-3.4); LYMPH% 9.9 % (20.5-51.1); MCH 25.8 PG (27-31); MCHC 30.4 g/dL (33-37); MCV 85.1 FL (81-99); MONO# 0.45 X1000 (0.11-0.59); MONO% 7.7 % (1.7-9.3); MPV 12.7 FL (7.4-10.4); NEUT% 75.1 % (42.2-75.2); PLT 125 X1000 (130-400); RBC 3.68 XMIL (4.7-6.1); RDW 13.8 % (11.5-14.5); WBC 5.85 X1000 (4.8-10.8)
[2019-06-06] MEDS: MORPHINE IV PRN ×6 (07:01→22:52)
[2019-06-06 07:26] LABS: PHOSPHORUS 1.7 mg/dL (2.7-4.5)
[2019-06-06 07:30] LABS: AGAP 13; ALKALINE PHOSPHATASE 92 U/L (32-122); BUN 27 mg/dL (8-22); CALCIUM 8.4 mg/dL (8.8-10.2); CHLORIDE 94 mmol/L (98-107); COSMO 298; CREATININE 0.9 mg/dL (0.7-1.2); ESTIMATED GFR > 60; GLUCOSE 173 mg/dL (70-104); GOT 51 U/L (10-34); GPT 17 U/L (10-44); POTASSIUM 3.4 mmol/L (3.5-5.1); SODIUM 145 mmol/L (136-145); TCO2 38 mmol/L (25-35); TOTAL BILIRUBIN 0.77 mg/dL (0.20-1.00)
--- NOTE | 2019-06-06 07:37 | Diag Imaging Result Doc PS360 ---
CHEST-PORTABLE - 06/06/2019 INDICATION: Vent pt COMPARISON: 06/05/2019 FINDINGS: Support lines and tubes are stable and in good position. There has been some improvement in the extensive bilateral hazy infiltrates. Heart size is normal. There is probably a trace left pneumothorax. This is about 10%, measuring about 9.6 mm at the apex. IMPRESSION: 1. Trace left pneumothorax. 2. Overall improvement in the extensive bilateral infiltrates. 3. This report was discussed with SHAZIA Hoang on 06/06/2019 at 7:32 AM and was readback. Electronically signed by Yon Ferrara 06/06/2019 7:34 AM
[2019-06-06 07:50] LABS: IRON SATURATION 12 %; TIBC 137 ug/dL; TOTAL IRON 16 ug/dL (53-167); UNBOUND IRON 121 ug/dL (112-346)
[2019-06-06] MEDS: ATROVENT NEB INH SCH ×3 (08:28→21:17)
[2019-06-06] MEDS: XOPENEX NEB INH SCH ×3 (08:29→21:17)
[2019-06-06 08:59] LABS: FERRITIN 4509 ng/mL (30-400)
--- NOTE | 2019-06-06 11:05 | Diag Imaging Result Doc PS360 ---
CHEST-PORTABLE - 06/06/2019 INDICATION: per MD's orders COMPARISON: 5:53 AM FINDINGS: There has been decrease in size of the trace left pneumothorax. This now measures less than 5%, about 4 mm. IMPRESSION: Decrease in the size of the trace left pneumothorax. Electronically signed by Yon Ferrara 06/06/2019 11:03 AM
--- NOTE | 2019-06-06 12:27 | INFECTIOUS DISEASE PROGRESS NO ---
DATE: 06/06/2019 PRESENT ILLNESS: The patient has bilateral pulmonary infiltrates which, based on him having a high procalcitonin level, are due to bacterial pneumonia. MEDICATIONS: This is the 8th day of treatment with meropenem. PHYSICAL EXAMINATION: Vital Signs: Temperature is 99 degrees, pulse 126, respirations 38, blood pressure is 129/62. General: This is an ill-appearing, young male. He is in no acute distress. Head, Eyes, Ears, Nose, and Throat: The patient has an orotracheal tube in place and an orogastric tube in place. There is no drainage coming from the nose or ears. Neck: No stiffness. Lungs: Clear to auscultation. Cardiovascular: Regular heart rate. Extremities: The patient has a PICC in the right arm. The site is not swollen or erythematous. Neurologic: The patient is sedated. He did not respond to verbal stimuli. LAB AND X-RAY: Chest x-ray shows trace left pneumothorax and also it shows improvement in the bilateral infiltrates. The CBC shows a white count of 5850, hemoglobin 9.5, platelet count 125,000. Blood gases show a pH of 7.49, a PO2 of 113, and pCO2 of 60. Creatinine is 0.9. GFR is greater than 60. CK is 393. ASSESSMENT AND PLAN: The patient appears to be improving due to the following findings: The infiltrates seen on chest x-ray are decreasing. The patient has been afebrile and he does not have a leukocytosis. Since he is improving, my plan is to continue with meropenem. COMORBIDITIES: Acute respiratory distress syndrome, rhabdomyolysis, and hemochromatosis. cc: MD Jose Negron MD
--- NOTE | 2019-06-06 13:18 | HEMO/ONC PROGRESS NOTE ---
DATE: 06/06/2019 SUBJECTIVE: The patient remains intubated in the ICU, sedated and paralyzed. There has been little change or improvement in his progress. The patient continues to have anemia and thrombocytopenia.. OBJECTIVE: Vital Signs: Temperature 97.7 degrees, pulse rate 99, respiratory rate 22, blood pressure 94/61, O2 saturation 95% on mechanical ventilation at 90% oxygen flow. T-max over the last 24 hours is 99.6, blood pressure systolic appeared to drop to the 80s very early this morning. HEENT: Eyes, 3 mm and slightly responsive. Skin warm, dry, and intact. Extremities: No lower extremity edema noted. Cardiovascular: Tachycardic rate and rhythm. Respiratory: Inspiratory crackles overall diminished breath sounds. Abdomen: Hypoactive bowel sounds. Soft, nondistended. Neurological: Sedated and paralyzed on the ventilator. LABORATORY: WBC 5.85, hemoglobin 9.5, hematocrit 31.3, platelet count 125,000, ANC 4.4, phosphorus 1.7, iron 16, iron saturation 12%, B12 657, folate 2.5, CK 393. ASSESSMENT: 1. Acute respiratory distress syndrome. 2. Bilateral lobe pneumonia. 3. Influenza A. 4. Rhabdomyolysis. 5. Psoriatic arthritis. 6. Hemochromatosis. 7. Normocytic anemia. 8. Neutropenia, resolved. 9. Thrombocytopenia, improving. 10. Intentional drug overdose. PLAN: We are continuing to monitor the patient's laboratory numbers. From our standpoint, he is doing very well. His pancytopenia could be from his drug overdose. His B12 level is normal. His folate level is low. The patient responded very well to Neupogen. Continue Neupogen if his ANC is less than 1.5. We understand that Palliative care is working with his . We will continue to assist in any way necessary. We will follow peripherally. Please let us know if we are needed. Dictated by CHRISTIAN Ledesma for Gerald Shin MD cc: MD Jose Alcantar MD MTDD
[2019-06-06] MEDS: LEVOPHED 8 MG in D5 1/2 NS 250 ML IV SCH (13:49)
[2019-06-06 14:17] LABS: MODALITY VENTILATOR
--- NOTE | 2019-06-06 18:26 | PROGRESS NOTE ---
DATE: 06/06/2019 INTERVAL HISTORY: The patient remains critically ill on maximum ventilatory support, on 100% FiO2, 10 of PEEP. Occasionally he desaturates, but for the most part remains in the low normal range. Chest x-ray this morning showing a small left pneumothorax, but it does appear to be decreasing in size, and we will repeat chest x-ray this afternoon. I had a long conversation with his this morning about where we are and goals of care. 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 She will also consider making him comfort care if he has a significant clinical deterioration. He is already Do Not Resuscitate 2, and they want no chest compressions in the event of a cardiac arrest. REVIEW OF SYSTEMS: Unable to obtain secondary to the patient's mental status. LABS: WBC 5.8, hemoglobin 9.5, hematocrit 31.3, platelets 125,000. ABG with pH 7.49, pCO2 of 60, PO2 of 113 on the ventilator. Sodium 145, potassium 3.4, bicarbonate 38, BUN 27, creatinine 0.9. IMAGING: Initial chest x-ray with trace left pneumothorax, some modest improvement in extensive bilateral infiltrates. Repeat chest x-ray with slight decrease in size of trace left pneumothorax from 10% to approximately 5%. VITAL SIGNS: T-max 98.6 degrees, pulse 106, respirations 20, blood pressure 101/53, and O2 saturation 92% on 100% FiO2. PHYSICAL EXAMINATION: General: No acute distress, intubated and sedated, ill-appearing. HEENT: Normocephalic, atraumatic. ET tube in place. Cardiovascular: Tachycardic but regular. No murmurs noted. Pulmonary: Mildly diminished throughout. Scattered rhonchi. Abdomen: Soft, nontender, nondistended. Bowel sounds hypoactive, but present. Extremities: Peripheral pulses intact. Trace lower extremity edema bilaterally. Neurologic: Exam limited by intubation and sedation. Pupils equal, round, reactive to light. Psychiatric: Sedated. ASSESSMENT AND PLAN: 1. Acute versus acute on chronic hypoxic and hypercapnic respiratory failure, acute respiratory distress syndrome, pneumonia, influenza A positive. The patient remains critically ill on the ventilator, approaching maximum ventilator support on 100% of FiO2 and 10 of PEEP this morning. Intermittently mild hypoxic even with that. Ideally, we would increase his PEEP some given his underlying acute respiratory distress syndrome, but cannot really do that because of pneumothorax identified this morning, although the pneumothorax did appear to be improving somewhat on repeat chest x-ray this afternoon. Continue antibiotics with Merrem. Continue to monitor closely. Discussion with family as above. 2. Rhabdomyolysis, likely secondary to sepsis, improving. 3. Hemochromatosis, aware, stable. 4. Pancytopenia. White count actually up into the normal range, otherwise essentially stable. Platelets are also little better. 5. Hyperglycemia, A1c 6.1 suggesting prediabetes, although may be falsely low because of pancytopenia. He has had some fairly significant elevations intermittently. Suspect he is actually diabetic and that the A1c is falsely low. Acceptable controls today on sliding scale. Continue to monitor. 6. Intentional overdose, severe major depression. If the patient survives this, then he will need psychiatric evaluation and likely inpatient treatment. TIME SPENT: Approximately 50 minutes of critical care time spent immediately available to the patient, examining the patient, reviewing labs and imaging, and making medical decisions. cc: Jose Newberry MD
[2019-06-06] MEDS ORDERED: MORPHINE IV ONE (18:56)
--- NOTE | 2019-06-06 19:14 | Diag Imaging Result Doc PS360 ---
EXAM: CHEST-PORTABLE 06/06/2019 HISTORY: per MD's orders TECHNIQUE: AP portable upright at 1909 COMMENT: There is diffuse alveolar opacity bilaterally. This may be slightly worse particularly over the right lower lobe than on the previous examination of 06/06/2019 at 1049. The endotracheal tube remains with its tip at thoracic inlet and there is an NG tube which passes into the stomach. There is a PICC line on the right with its tip in the right atrium. IMPRESSION: Diffuse pulmonary edema/ARDS which is questionably worse than on the previous study. Electronically signed by Daniel Yeung 06/06/2019 7:12 PM
[2019-06-06] MEDS: NIMBEX 80 MG in NS 160 ML IV SCH ×2 (19:58→22:50)
[2019-06-06] MEDS: PRAVACHOL PO SCH (21:47)
--- NOTE | 2019-06-06 22:19 | PULMONOLOGY PROGRESS NOTE ---
DATE: 06/06/2019 SUBJECTIVE: The patient is sedated. The patient has been evaluated multiple times today. He had a small pneumothorax which was smaller on followup film. In the evening, he has become more difficult to ventilate. Chest x-ray reveals worsening edema and he will be reinitiated on paralytic to keep his airway pressures lower. OBJECTIVE: Vital Signs: The patient has been afebrile for the last 24 hours. Blood pressure 107/57, heart rate 112, respiratory rate 21, oxygen saturation 94%. HEENT: Pupils are equal and reactive. Oropharynx appears clear. Neck is supple. Chest: Reveals crackles bilaterally. Cardiac: S1-S2. Abdomen: Soft, positive bowel sounds. Extremities: Reveal 1+ peripheral edema. LABORATORIES: White blood count 5.85, hemoglobin 9.5, platelet count 125,000. Sodium 145, potassium 3.4, chloride 94, bicarbonate 38, BUN 27, creatinine 0.9, glucose 173. Arterial blood gas this morning pH 7.45, pCO2 of 60, PO2 of 113. IMPRESSION: Complicated 39-year-old with 1. Influenza. 2. Acute hypoxemic respiratory failure with adult respiratory distress syndrome. 3. Hypercapnic respiratory failure. 4. Neutropenia. 5. Thrombocytopenia. 6. Psoriatic arthritis. 7. Hemochromatosis. 8. Nicotine addiction. 9. Drug overdose on the day of admission. PLAN: 1. Reinitiate paralysis. 2. Continue antibiotics per Infectious Disease. 3. Continue lung protective strategy on mechanical ventilation. 4. Overall prognosis is guarded. The patient's is aware that he may not survive. Critical care management time: 45 minutes cc: MD Jose Reardon MD MTDD
[2019-06-07] MEDS: HUMULIN R SUBQ SCH ×7 (00:18→23:21)
[2019-06-07] MEDS: MERREM 1 GM in NS 50 ML IV SCH ×2 (01:04→08:54)
[2019-06-07] MEDS: DIPRIVAN 1% 1,000 MG/100 ML BOTTLE IV SCH ×9 (01:38→23:22)
[2019-06-07] MEDS: PROTONIX IV SCH ×2 (04:37→15:38)
[2019-06-07] MEDS: REGLAN IV SCH ×2 (04:37→08:54)
[2019-06-07] MEDS: MORPHINE IV PRN ×2 (04:38→18:17)
[2019-06-07 05:00] LABS: ALLEN TEST YES; BE 16.3 mmoll (-3.0-3.0); BLOOD TYPE ARTERIAL; HCO3-(ACT) 37.7 mmoll (20.0-26.0); METHB 1.2 % (0.0-1.5); O2(CT) 13.2 mL/dL (15.0-23.0); O2HB 96.8 % (95.0-99.0); PO2(98.6) 131 mmHg (60-100); SAMPLE BLOOD; SAO2 99.3 % (95.0-100.0); SRATE 24 BPM; THB 9.5 g/dL (11.5-17.4); TVOL 440 mL; pH(98.6) 7.44 (7.35-7.45)
[2019-06-07 05:12] LABS: MODALITY VENTILATOR; PCO2(98.6) 63 mmHg (35-45)
[2019-06-07 06:17] LABS: MAGNESIUM 2.2 mg/dL (1.5-2.7)
[2019-06-07 06:23] LABS: AGAP 15; ALB/GLOB RATIO 0.7; ALBUMIN 2.3 g/dL (3.5-5.0); ALKALINE PHOSPHATASE 101 U/L (32-122); BUN 32 mg/dL (8-22); CALCIUM 8.1 mg/dL (8.8-10.2); CHLORIDE 91 mmol/L (98-107); COSMO 294; CREATININE 0.9 mg/dL (0.7-1.2); ESTIMATED GFR > 60; GLUCOSE 229 mg/dL (70-104); GOT 28 U/L (10-34); GPT 15 U/L (10-44); POTASSIUM 2.7 mmol/L (3.5-5.1); SODIUM 140 mmol/L (136-145); TCO2 34 mmol/L (25-35); TOTAL PROTEIN 5.8 g/dL (6.3-8.3)
--- NOTE | 2019-06-07 07:32 | Diag Imaging Result Doc PS360 ---
EXAM: CHEST-PORTABLE INDICATION: Vent pt TECHNIQUE: One view COMPARISON: 06/06/2019 FINDINGS: Support tubes and lines are in stable positions. Diffuse bilateral airspace infiltrates are again identified. There appears to be marginal improvement at the right lower lung zone. No new consolidation is identified. Cardiac silhouette is stable. IMPRESSION: Bilateral diffuse consolidation with marginal improvement of the right lower lung zone. Electronically signed by Josh Chen 06/07/2019 7:29 AM
[2019-06-07] MEDS ORDERED: POTASSIUM CHLORIDE 60 MEQ in NS 500 ML IV ONE (07:38)
[2019-06-07] MEDS: LEVOPHED 8 MG in D5 1/2 NS 250 ML IV SCH (08:54)
[2019-06-07] MEDS: NIMBEX 80 MG in NS 160 ML IV SCH ×5 (09:03→23:22)
[2019-06-07] MEDS: XOPENEX NEB INH SCH ×3 (10:54→22:57)
[2019-06-07] MEDS: ATROVENT NEB INH SCH ×3 (10:54→22:57)
--- NOTE | 2019-06-07 13:59 | INFECTIOUS DISEASE PROGRESS NO ---
DATE: 06/07/2019 PRESENT ILLNESS: The patient has bilateral infiltrates, which based on him having a procalcitonin, could be due in part to a bacterial pneumonia. On the x-ray today, there appears to be some improvement in the right lower lobe. MEDICATIONS: The patient has been on meropenem now for 9 days. PHYSICAL EXAMINATION: Vital Signs: Temperature is 98 degrees, pulse 95, respirations 24, and blood pressure 117/69. General: This is an ill-appearing young male. He is obtunded. He does not appear to be in any acute distress. Head/eyes/ears/nose/throat: The patient has an orotracheal and an orogastric tube in place. There is no drainage from the nose or ears. Neck: No stiffness. Lungs: Clear to auscultation. Cardiovascular: Regular heart rate. Abdomen: Soft and nontender. Extremities: The patient has a PICC in his right arm. The site is not erythematous or purulent. Neurologic: The patient is obtunded. He does not have a tremor. LABORATORY AND X-RAY: Chest x-ray shows bilateral consolidation with improvement in the right lower lobe. The patient's blood gases show a pH of 7.44, PO2 of 131, and a pCO2 of 63. The creatinine is 0.9. GFR is greater than 60. Liver function studies are normal. Sputum culture is negative. ASSESSMENT AND PLAN: The patient is very likely to have a bacterial pneumonia, and my plan is to continue meropenem. COMORBIDITIES: Acute respiratory distress syndrome, rhabdomyolysis, and hemochromatosis. cc: MD Jose Negron MD
[2019-06-07] MEDS ORDERED: MERREM 2 GM in NS 50 ML IV SCH (17:00)
[2019-06-07] MEDS: MERREM 2 GM in NS 100 ML IV SCH (18:00)
--- NOTE | 2019-06-07 20:47 | PROGRESS NOTE ---
DATE: 06/07/2019 INTERVAL HISTORY: Patient remains intubated and sedated and on pressors. Rash noted this morning. I have evaluated the patient, looks like hives, likely a drug reaction. Reglan identified as only recent addition to his drug regimen and was discontinued. Wound nurse evaluated patient, also noted some pressure ulcers which are being worked on. No other acute events. REVIEW OF SYSTEMS: Unable to obtain secondary to patient's mental status. LABS: ABG with pH 7.44, pCO2 63, PO2 131 on ventilator, sodium 140, potassium 2.7, BUN 32, creatinine 0.9, glucose 181 to 245. IMAGING: Chest x-ray with continued bilateral diffuse consolidations with slight improvement in the right lower lung zone. Previously noted small pneumothorax appears to have resolved. VITALS: T-max 98.5 degrees, pulse 116, respirations 24, blood pressure 121/70, O2 saturation 93% on ventilator. PHYSICAL EXAMINATION: General: No acute distress, intubated and sedated, ill- appearing. HEENT: Normocephalic, atraumatic. ET tube remains in place. Cardiovascular: Tachycardic but regular. No murmurs noted. Pulmonary: Still mildly diminished throughout. A few scattered rhonchi but got clearer than I would expect. Abdomen: Soft, nontender, nondistended. Bowel sounds hypoactive, but there. Extremity: Peripheral pulses intact. Trace lower extremity edema bilaterally. Stable scattered pink macular rash consistent with hives diffusely. No blistering. Neurologic: Limited by intubation, sedation, and paralyzation. Pupils equal, round, mildly reactive. Psychiatric: Sedated. Skin: Diffuse macular rash as above. Skin breakdown on heel and buttocks. ASSESSMENT AND PLAN: 1. Acute versus acute on chronic hypoxic hypercapnic respiratory failure, ARDS, pneumonia, influenza A. Patient remains critically on the ventilator on pressors with Levophed. On 100% FiO2 and slightly increased PEEP from 10 to 14. Oxygen remains marginal, but a little better than yesterday. Chest x-ray possibly slightly improved. Remains on antibiotics with meropenem as per Infectious Disease. Remains paralyzed as per pulmonology. Continue to monitor closely. 2. Rhabdomyolysis, likely secondary to sepsis/ARDS. Essentially resolved at this point. 3. Hemochromatosis, aware, stable. 4. Pancytopenia. Recheck pending, but slightly improved on last check. 5. Hyperglycemia, likely diabetes. The patient A1c within normal limits, but has had pretty significant hyperglycemia and is not on steroids currently. Suspect A1c falsely low because of pancytopenia. Treating with sliding scale currently. May have to go up on that a little bit versus low-dose long-acting insulin if his sugar remains mildly elevated or moderately elevated. Up into the low 200s fairly consistently today. 6. Intentional overdose, severe major depression. If patient is extubated and wakes up, then will need psychiatric evaluation. 7. Hives, likely drug rash. On reviewing his medications, it looks like Reglan is only recent addition that he has not been on previously for an extended period, so it is the most likely culprit. Reglan discontinued and we will monitor. If rash worsens, we will start prednisone and Benadryl. 8. Decubitus ulcers. Wound care and monitor. Critical care time: Approximately 40 minutes critical care time spent immediately available to the patient examining patient, reviewing labs and imaging, and making medical decisions. cc: Jose Newberry MD MTDD
[2019-06-07] MEDS: PRAVACHOL PO SCH (20:59)
[2019-06-07] MEDS: TYLENOL PO PRN (20:59)
[2019-06-08] MEDS: DIPRIVAN 1% 1,000 MG/100 ML BOTTLE IV SCH ×9 (01:51→22:39)
[2019-06-08] MEDS: MERREM 2 GM in NS 100 ML IV SCH (01:51)
[2019-06-08] MEDS: NIMBEX 80 MG in NS 160 ML IV SCH ×9 (02:09→23:56)
--- NOTE | 2019-06-08 04:30 | PULMONOLOGY PROGRESS NOTE ---
DATE: 06/07/2019 SUBJECTIVE: The patient is sedated and paralyzed. He remains on Levophed for hypotension. OBJECTIVE: Blood pressure 116/60, heart rate 115, oxygen saturation 95%. Maximum temperature in the last 24 hours 99.6 degrees.HEENT: Pupils are midpoint and poorly reactive. Oropharynx appears clear but dry. Neck is supple. Chest reveals coarse rhonchi bilaterally. Cardiac exam: Increased rate, regular rhythm. Abdomen is soft. Extremities reveal 2+ peripheral edema. LABORATORY DATA: Sodium 140, potassium 2.7, chloride 91, bicarbonate 34, BUN 32, creatinine 0.9. Arterial blood gas reveals a pH 7.44, pCO2 of 63, pO2 of 131. Microbiology reveals no new data. DIAGNOSTIC DATA: Chest x-ray reveals bilateral infiltrates with no significant pneumothorax identified. IMPRESSION: A 39-year-old with: 1. Acute hypoxemic respiratory failure with adult respiratory distress syndrome. 2. Hypercapnic respiratory failure. 3. Neutropenia. 4. Thrombocytopenia. 5. Psoriatic arthritis. 6. Hemochromatosis. 7. Nicotine addiction. 8. Drug overdose. 9. Hypotension, requiring Levophed. PLAN: 1. Continue full ventilatory support with paralytics and sedation. 2. Continue antibiotics per Infectious Disease. 3. Continue Levophed for hypotension. 4. Overall prognosis is guarded. The patient's family is aware. Time spent in critical care management 35 minutes. cc: MD Jose Reardon MD
[2019-06-08] MEDS: PROTONIX IV SCH ×2 (04:31→14:59)
[2019-06-08] MEDS: HUMULIN R SUBQ SCH ×5 (04:32→20:30)
[2019-06-08 05:15] LABS: ALLEN TEST YES; BE 11.4 mmoll (-3.0-3.0); BLOOD TYPE ARTERIAL; HCO3-(ACT) 33.8 mmoll (20.0-26.0); O2(CT) 10.8 mL/dL (15.0-23.0); O2HB 95.4 % (95.0-99.0); PO2(98.6) 89 mmHg (60-100); SAMPLE BLOOD; SAO2 96.6 % (95.0-100.0); SRATE 24 BPM; THB 7.9 g/dL (11.5-17.4); TVOL 440 mL; pH(98.6) 7.37 (7.35-7.45)
[2019-06-08 05:16] LABS: MODALITY VENTILATOR; PCO2(98.6) 66 mmHg (35-45)
[2019-06-08] MEDS: LEVOPHED 8 MG in D5 1/2 NS 250 ML IV SCH ×2 (05:26→23:56)
[2019-06-08 05:49] LABS: BASO# 0.17 X1000 (0.0-0.2); BASO% 2.4 % (0.0-0.8); EOS# 0.03 X1000 (0.0-0.7); EOS% 0.4 % (0.0-10.0); HEMATOCRIT 30.1 % (42.0-52.0); HEMOGLOBIN 8.9 g/dL (14.0-18.0); IMM GRAN# 1.41 X1000 (0.0-0.04); LYMPH# 0.93 X1000 (1.2-3.4); LYMPH% 13.2 % (20.5-51.1); MCH 25.4 PG (27-31); MCHC 29.6 g/dL (33-37); MCV 85.8 FL (81-99); MONO# 0.62 X1000 (0.11-0.59); MONO% 8.8 % (1.7-9.3); MPV 12.5 FL (7.4-10.4); NEUT# 3.88 X1000 (1.4-6.5); NEUT% 55.2 % (42.2-75.2); PLT 234 X1000 (130-400); RBC 3.51 XMIL (4.7-6.1); RDW 13.9 % (11.5-14.5); WBC 7.04 X1000 (4.8-10.8)
[2019-06-08 06:19] LABS: AGAP 12; ALB/GLOB RATIO 0.6; ALKALINE PHOSPHATASE 95 U/L (32-122); BUN 25 mg/dL (8-22); CALCIUM 7.7 mg/dL (8.8-10.2); CHLORIDE 100 mmol/L (98-107); COSMO 297; CREATININE 0.9 mg/dL (0.7-1.2); ESTIMATED GFR > 60; GLUCOSE 177 mg/dL (70-104); GOT 24 U/L (10-34); GPT 12 U/L (10-44); POTASSIUM 3.1 mmol/L (3.5-5.1); SODIUM 145 mmol/L (136-145); TCO2 33 mmol/L (25-35); TOTAL BILIRUBIN 0.46 mg/dL (0.20-1.00); TOTAL PROTEIN 5.5 g/dL (6.3-8.3)
[2019-06-08 06:24] LABS: MAGNESIUM 2.6 mg/dL (1.5-2.7); PHOSPHORUS 4.2 mg/dL (2.7-4.5)
--- NOTE | 2019-06-08 06:57 | Diag Imaging Result Doc PS360 ---
CHEST-PORTABLE - 06/08/2019 INDICATION: Vent pt COMPARISON: 06/07/2019 FINDINGS: Stable endotracheal tube, nasogastric tube, and right PICC line in good position. There has been significant worsening in dense bilateral infiltrates. Heart size is top normal. No pneumothorax. IMPRESSION: Significant worsening in dense bilateral infiltrates. Most suggestive of ARDS. Electronically signed by Yon Ferrara 06/08/2019 6:55 AM
[2019-06-08 07:05] LABS: BANDS 2 % (0-1); LYMPHS 10 % (21-51); MONO 4 % (1-9); NRBC 1 % (0-0); SEGS 60 % (42-75)
[2019-06-08] MEDS ORDERED: POTASSIUM CHLORIDE 60 MEQ in NS 500 ML IV ONE (07:29)
[2019-06-08] MEDS: SOLU-MEDROL IV SCH ×2 (09:14→20:28)
[2019-06-08] MEDS: BENADRYL IV SCH ×3 (09:14→20:28)
[2019-06-08] MEDS: TYLENOL PO PRN (11:45)
[2019-06-08] MEDS: ATROVENT NEB INH SCH ×3 (12:01→22:04)
[2019-06-08] MEDS: XOPENEX NEB INH SCH ×3 (12:01→22:04)
[2019-06-08] MEDS ORDERED: LASIX IV ONE (12:30)
--- NOTE | 2019-06-08 13:14 | INFECTIOUS DISEASE PROGRESS NO ---
DATE: 06/08/2019 PRESENT ILLNESS: The patient has bilateral infiltrates. His procalcitonin level was elevated, which would suggest that the patient has a bacterial pneumonia. However, now after the x-ray had been looking better, it has taken a significant worsening, and therefore the meropenem, which I thought was helping, does not appear to be now, and also the patient has a diffuse red, splotchy rash, which I think could be due to an allergy to meropenem. MEDICATIONS: As mentioned above, the patient is on meropenem. PHYSICAL EXAMINATION: Vital Signs: Temperature is 98.3 degrees, pulse 100, respirations 24, blood pressure 110/59. General: This is an ill-appearing, young male. He is intubated. HEENT: The patient has an orotracheal tube in place and an orogastric tube in place. I was unable to visualize the patient's mouth well. Neck: Supple, and passive movement of it did not seem to cause the patient to have any pain. Lungs: Clear to auscultation. Cardiovascular: Heart rate is regular. Abdomen: Soft and nontender. Extremities: The patient has a PICC in the right arm. The site of the PICC is not erythematous or purulent. Neurologic: The patient is obtunded. He does not have a tremor. Integument: The patient has a diffuse red, splotchy rash. IMAGING AND LABORATORY DATA: Chest x-ray shows worsening of the bilateral infiltrates. Liver function studies are normal. Creatinine is 0.9, GFR is greater than 60. CBC shows a white count of 7040, hemoglobin 8.9, platelet count 234,000. Blood gases show a pH of 7.37, a PO2 of 89, and a pCO2 of 66. ASSESSMENT AND PLAN: At first, I thought the patient very likely had a bacterial pneumonia, but with its worsening despite having many different types of antimicrobial therapy, now I think makes it less likely that the patient does have a pneumonia, and the radiologists felt that the radiographic appearance of the chest was most compatible with acute respiratory distress syndrome. My plan now is to discontinue the meropenem because it may be causing the patient's rash, and at this time, I am not going to start any other antimicrobial therapy. I am going to sign off of the patient's case, but I am available to see him on an as needed basis. COMORBIDITIES: Acute respiratory distress syndrome, rhabdomyolysis, and hemochromatosis. cc: MD Jose Negron MD
[2019-06-08] MEDS: MORPHINE IV PRN (13:44)
--- NOTE | 2019-06-08 19:02 | PROGRESS NOTE ---
DATE: 06/08/2019 INTERVAL HISTORY: The patient remains intubated, sedated, paralyzed, and on Levophed in the ICU. Remains critically ill. FiO2 weaned down slightly. Remains afebrile, but previously noted drug rash appears worse today, especially in the left arm. No other acute events. REVIEW OF SYSTEMS: Unable to obtain secondary to patient's mental status. LABORATORY DATA: WBC 7.0, hemoglobin 8.9, hematocrit 30.1, platelets 234,000. ABG with pH 7.37, pCO2 of 66, PO2 of 89, on ventilator with 90% oxygen. Sodium 145, potassium 3.1, BUN 25, creatinine 0.9, glucose 172 to 267. IMAGING: Chest x-ray with continued dense bilateral infiltrates, likely ARDS. Previously noted pneumothorax no longer identified. VITALS: Temperature max 100.3 degrees, pulse 108, respirations 24, blood pressure 114/53, O2 saturation 94% on 90% FiO2. PHYSICAL EXAMINATION: General: No acute distress. Vitals: As above. HEENT: Normocephalic, atraumatic. ET tube in place. Cardiovascular: Mildly tachycardic, but regular. No murmurs noted. Pulmonary: Coarse breath sounds throughout with scattered rhonchi, approximately stable. Abdomen: Soft, nontender. Bowel sounds decreased but present. Extremities: Peripheral pulses intact. No clubbing or cyanosis. Mild pitting edema in all extremities. Neurologic: Patient paralyzed, so exam is limited. Pupils equal, round, minimally reactive. Psychiatric: Patient is sedated. Skin: Previously noted pink macular rash consistent with allergic reaction. Approximately the same in bilateral feet and legs, but significantly worse on the left arm and a little worse on the left foot. ASSESSMENT AND PLAN: 1. Likely acute on chronic hypoxic and hypercapnic respiratory failure, adult respiratory distress syndrome, pneumonia, influenza A. The patient remains critically ill on the ventilator with near maximum vent support. Oxygen has been weaned down very slightly, but remains on high PEEP at 14. Still requiring pressors with Levophed. Chest x-ray yesterday perhaps slightly improved, but back to about where it was today. However, previously noted pneumothorax is no longer identifiable, which is a good thing. Given worsening drug rash, Infectious Disease is taking him off Merrem to monitor off of antibiotics. We will monitor closely and restart antibiotics if need be. 2. Drug rash. Initially favored Reglan as the cause of that, was the most recently added drug, but the rash continued to worsen. Now we are, after discussion with ID, taking off Merrem as well. We will go ahead and give him some steroids and Benadryl as his rash is getting fairly extensive, especially in the upper extremities and upper torso. 3. Intentional drug overdose, severe major depression. If patient is able to be extubated and wakes up, then will need psychiatric evaluation. 4. Rhabdomyolysis likely secondary to sepsis/adult respiratory distress syndrome. Essentially resolved on last check. 5. Hemochromatosis. Aware, stable. 6. Pancytopenia. White count and platelets a little better. Red blood cells approximately stable. Continue to monitor. 7. Likely diabetes. A1c within normal limits, but given degree of hyperglycemia prior to the initiation of steroids, suspect that A1c is falsely low because of his pancytopenia and he is in fact diabetic. Control has been not ideal with upper 100s and well into the 200s, so we will go ahead and add some low-dose basal insulin since he is on continuous tube feeds anyway. Continue to monitor sugars. 8. Decubitus ulcers. No sign of infection currently. Continue wound care and monitor. CRITICAL CARE TIME: Approximately 35 minutes of critical care time spent immediately available to the patient, examining patient, reviewing labs and imaging, and making medical decisions. cc: Jose Newberry MD
[2019-06-08] MEDS: PRAVACHOL PO SCH (20:29)
[2019-06-08] MEDS ORDERED: LOVENOX SUBQ SCH (21:00)
[2019-06-08] MEDS ORDERED: LANTUS INSULIN SUBQ SCH (21:00)
--- NOTE | 2019-06-09 00:30 | PULMONOLOGY PROGRESS NOTE ---
DATE: 06/08/2019 SUBJECTIVE: The patient is sedated and paralyzed. He now has a diffuse rash. Basal pressure requirements have increased. OBJECTIVE: Vital Signs: Maximum temperature in the last 24 hours is 100.3 degrees, blood pressure 105/52, heart rate 103, respiratory rate 24, oxygen saturation 96%. HEENT: Pupils are midpoint and slow to respond. Oropharynx appears clear. Neck: Supple. Chest: Reveals truncal rash with coarse breath sounds bilaterally. Cardiac: S1-S2. Abdomen: Soft. Extremities: Reveal increased peripheral edema. LABORATORIES: Chest x-ray reveals increasing infiltrates bilaterally. White blood count 7.04, hemoglobin 8.9, platelet count 234,000. Sodium 145, potassium 3.1, chloride 100, bicarbonate 33, BUN 25, creatinine 0.9. IMPRESSION: A 39-year-old with: 1. Acute hypoxemic respiratory failure with adult respiratory distress syndrome. 2. Hypercapnic respiratory failure. 3. Neutropenia, which has resolved. 4. Thrombocytopenia, which has resolved. 5. Rash, suspect drug rash to meropenem. 6. Psoriatic arthritis. 7. Hemochromatosis. 8. Nicotine addiction. 9. Drug overdose. PLAN: 1. Continue paralytics, sedation, and full ventilatory support. 2. Agree with discontinuing meropenem and initiating steroids although this will increase his risk of polyneuropathy of critical illness. 3. Continue Levophed for hypotension. 4. Prognosis is guarded. Family aware. Time spent in critical care management: 45 minutes cc: MD Jose Reardon MD MTDD
[2019-06-09] MEDS: HUMULIN R SUBQ SCH ×3 (01:12→07:56)
[2019-06-09] MEDS: BENADRYL IV SCH ×2 (01:12→08:02)
[2019-06-09] MEDS: DIPRIVAN 1% 1,000 MG/100 ML BOTTLE IV SCH ×3 (01:16→07:12)
[2019-06-09] MEDS: NIMBEX 80 MG in NS 160 ML IV SCH ×4 (01:26→07:55)
[2019-06-09] MEDS ORDERED: LASIX IV ONE (02:00)
[2019-06-09] MEDS: MORPHINE IV PRN (03:54)
[2019-06-09 04:51] LABS: ALLEN TEST YES; BE 7.4 mmoll (-3.0-3.0); BLOOD TYPE ARTERIAL; HCO3-(ACT) 30.6 mmoll (20.0-26.0); METHB 1.1 % (0.0-1.5); O2(CT) 15.4 mL/dL (15.0-23.0); O2HB 93.3 % (95.0-99.0); PO2(98.6) 72 mmHg (60-100); SAMPLE BLOOD; SAO2 96.2 % (95.0-100.0); SRATE 24 BPM; THB 11.7 g/dL (11.5-17.4); TVOL 450 mL; pH(98.6) 7.32 (7.35-7.45)
[2019-06-09 05:49] LABS: MODALITY VENTILATOR; PCO2(98.6) 69 mmHg (35-45)
[2019-06-09] MEDS: PROTONIX IV SCH (05:49)
[2019-06-09 06:15] VITALS: BP 111/48
--- NOTE | 2019-06-09 06:34 | Diag Imaging Result Doc PS360 ---
EXAM: CHEST-PORTABLE HISTORY: Vent pt TECHNIQUE: Single view COMPARISON: 06/08/2019 FINDINGS: No change in the endotracheal tube, the nasogastric tube, or in the right-sided PICC line. There are diffuse bilateral infiltrates similar to the prior exam. No cardiomegaly. There are small pleural effusions. IMPRESSION: Stable chest Electronically signed by Martin Miller 06/09/2019 6:31 AM
[2019-06-09 06:53] LABS: CHOLESTEROL 132 mg/dL (0-200); HDL 19 mg/dL (35-55); TRIGLYCERIDES 485 mg/dL (39-160)
[2019-06-09] MEDS: SOLU-MEDROL IV SCH (07:55)
[2019-06-09] MEDS ORDERED: MORPHINE IV ONE (08:27)
[2019-06-09] MEDS ORDERED: EPINEPHRINE SYRINGE IV ONE (09:20)
[2019-06-09] MEDS ORDERED: ATROPINE SYRINGE IV ONE (09:22)
--- NOTE | 2019-06-10 08:57 | DISCHARGE SUMMARY ---
ADMISSION DATE: 05/24/2019 DISCHARGE DATE: 06/09/2019 Discharge note and critical care documentation. HOSPITAL COURSE: Intentional overdose with muscle relaxer, prednisone, oxycodone, ibuprofen. He was brought with nausea, vomiting, headache and abdominal pain. Shortly after presentation, he developed progressive respiratory failure with pneumonia, influenza, and subsequently ARDS. The patient was intubated for a prolonged period, required maximum ventilator support little improvement over almost 2 weeks on the ventilator. He was on antibiotics with vancomycin initially, Tamiflu initially. Later dropped to just Merrem. The patient developed a drug rash. Merrem was held as well approximately 12 hours prior to his as it was felt that his underlying pneumonia was likely treated and residual problems was all ARDS. He had been on antibiotics for right at 2 weeks at that point. He had a number of other issues including rhabdomyolysis, pancytopenia, diabetes which was newly diagnosed on top of his underlying hemochromatosis, but his respiratory problems were the primary issue. Early in this course the family elected to continue all conservative measures including medications, but no chest compressions. The patient did have a small pneumothorax noted on the but this appeared to resolve by the afternoon of the . On the , the patient developed a pretty significant cuff leak of his ET tube. This was changed out by Anesthesia without difficulty. The patient had reasonable breath sounds on both sides just after his tube was changed out. His oxygen saturations were adequate. Approximately 30 minutes later, the patient then began developing bradycardia. It got into the 30s but did not have a pulse. He was given epinephrine, followed by atropine, subsequently an additional dose of atropine and an additional 2 doses of epinephrine. Despite this, the patient continued to become progressively bradycardic and hypoxic. On repeat exam, while he had some breath sounds on the left, they were markedly decreased at the apex. The suspicion was for recurrence of his pneumothorax. At that point, family to bedside and requested that we stop resuscitation. The patient was placed on comfort medications and resuscitory efforts were discontinued including bagging the patient. Shortly thereafter he lost pulse. At that time, heart and lungs sounds were absent, pulses absent, pupils fixed and dilated, reflexes absent. Time of was 0830 on 06/09/2019. DISCHARGE MEDICATIONS: None. FOLLOWUP: None. DIET: None. TOTAL CRITICAL CARE TIME SPENT: Time immediately available to the patient including examining patient, reviewing laboratories and imaging, making medical decisions, 40 minutes. cc: Jose Newberry MD [facility]PITALRadha
== END 2019-06-09 08:30 | disposition expired | DRG 917 ==
LOC: P.ED 10:39 → P.MEDSURG 10:39 → OBSVTOIN 15:21 → SUATTDRO 15:21 → EDIPHOLD 05-27 15:02 → ICU 05-27 15:05
PROVIDERS: ADMIT Internal Medicine; ATTEND Internal Medicine